=== PATIENT | female | born 1985 | race Caucasian/White ===

== ENCOUNTER 2022-10-17 13:27 | Inpatient (IN) | payer OTHER, SELFPAY ==
[2022-10-17 13:35] VITALS: BMI 29.7
[2022-10-17 13:36] VITALS: BP 160/110; PULSE 108; RESP 17; TEMP 36.8; O2SAT 98
[2022-10-17 13:55] VITALS: BP 160/110; PULSE 108; RESP 17; TEMP 36.8; O2SAT 98
--- NOTE | 2022-10-17 15:25 | PC.NURSE ---
Patient uses [facility] in [place], number is [phone]. Patient restarted on seroquel 100mg, 1 tab at bedtime; depakote DR 250mg BID, spironolactone 50mg 1 daily. Hospital doesn't carry Wellbutrin 75mg 1 daily, because the [address] Hays aware; he said to not give.
--- NOTE | 2022-10-17 15:39 | PC.NURSE ---
HEad lice treatment medication was discovered in patient's medication list from admitting hospital. patient denies having head lice. Patient allowed this nurse to check her hair and scalp for lice and nits. Nothing found.
[2022-10-17 16:28] VITALS: BP 157/98
[2022-10-17] MEDS: divalproex DR 250 mg Tablet PO (20:13)
[2022-10-17] MEDS: quetiapine 100 mg Tablet PO (20:14)
[2022-10-17 20:39] VITALS: BP 155/95; PULSE 93; RESP 18; TEMP 36.4; O2SAT 96
[2022-10-18] MEDS: OLANZapine 5 mg ODT PO ×2 (03:05→17:07)
[2022-10-18 06:00] VITALS: BP 165/106; PULSE 106; RESP 18; TEMP 36.7; O2SAT 96
[2022-10-18 06:43] VITALS: BP 165/106
[2022-10-18] MEDS: cloNIDine 0.1 mg Tablet 0.2 MG PO (06:43)
[2022-10-18] MEDS: spironolactone 25 mg Tablet 50 MG PO (08:20)
[2022-10-18] MEDS: divalproex DR 250 mg Tablet PO ×2 (08:21→20:39)
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
[2022-10-18] MEDS: nicotine 21 mg Patch 1 PATCH TRANSDERMA (11:29)
[2022-10-18] MEDS: paliperidone ER 3 mg Tablet PO (11:31)
[2022-10-18 14:00] VITALS: BP 156/106; PULSE 94; RESP 16; TEMP 37.2; O2SAT 99
[2022-10-18] MEDS: hyDROXYzine 25 mg Capsule 50 MG PO ×2 (17:07→20:39)
--- NOTE | 2022-10-18 17:10 | PC.NURSE ---
PT SIGNIFICANT OTHER CALLED TO ASK FOR AN UPDATE ON PT. SIGNIFICANT OTHER IS ON PT HIPPA FORMS. THIS NURSE GAVE UPDATE AND SIGNIFICANT OTHER STATED TO THIS NURSE THE LAST TIME SHE WAS ADMITTED SHE STARTED PEEING IN [facility]. THIS WILL BE RELAYED APPROPRIATELY.
--- NOTE | 2022-10-18 17:10 | PC.NURSE ---
PRN VISTARIL & ZYPREXA ZYDIS VISTARIL 50 MG GIVEN PO WITH ZYPREXA ZYDIS 5 MG PO SUBLINGUAL PER PT C/O INCREASED ANXIETY/PSYCHOSIS. PT URINATED IN CHAIR IN DAY ROOM, CAME UP TO THE DESK ASKING FOR SCRUBS, STAFF PROVIDED, PT PROCEEDED TO STRIP NAKED IN THE HALLWAY. STAFF HAD TO REDIRECT TO PATIENT ROOM TO CONTINUE GETTING DRESSED. PT WAS THEN STANDING STILL IN THE HALLWAY FOR SEVERAL MINUTES STARING STRAIGHT AHEAD, WITH ARMS OUT TO SIDE, RESPONDED TO STAFF WHEN ASKED IF SHE WAS OKAY BUT APPEARS TO BE MUMBLING TO HERSELF. TOOK PRN MEDS WILLINGLY. WILL CONT TO MONITOR
[2022-10-18 19:42] VITALS: PULSE 101; RESP 17; TEMP 37.1; O2SAT 96
[2022-10-18] MEDS: trazodone 50 mg Tablet PO (20:39)
[2022-10-18] MEDS: nicotine 4 mg lozenge MUCOUS MEM (23:41)
[2022-10-19 06:00] VITALS: BP 161/92; PULSE 113; RESP 16; TEMP 36.7; O2SAT 99
[2022-10-19] MEDS: paliperidone ER 3 mg Tablet PO ×2 (08:06→17:01)
[2022-10-19] MEDS: divalproex DR 250 mg Tablet PO (08:06)
[2022-10-19] MEDS: spironolactone 25 mg Tablet 50 MG PO (08:06)
[2022-10-19] MEDS: nicotine 2 mg Gum BUCCAL ×2 (08:07→20:08)
--- NOTE | 2022-10-19 09:01 | PC.NURSE ---
PT CURRENTLY DENIES SI/HI/AH/VH. PT WAS COOPERATIVE DURING ASSESSMENT BUT WOULD ONLY ANSWER QUESTIONS WITH ONE WORD ANSWERS. PT IS EVASIVE WHEN ASKED QUESTIONS. PT APPEARS FLAT AND BLAND. PT CURRENT NEEDS ARE MET. WILL CONTINUE TO MONITOR
[2022-10-19] MEDS: hyDROXYzine 25 mg Capsule 50 MG PO (12:13)
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
[2022-10-19 14:00] VITALS: BP 151/96; PULSE 104; RESP 16; TEMP 36.6; O2SAT 97
[2022-10-19] MEDS: spironolactone 25 mg Tablet PO (17:01)
[2022-10-19] MEDS: haloperidol 5 mg Tablet PO (17:21)
--- NOTE | 2022-10-19 17:33 | W.PM.NPUPNS ---
Subjective NPU Subjective: Patient is a 36-year-old white female with a history of schizophrenia admitted with active psychosis including bizarre delusions and paranoia. The patient had requested that she have her lithium discontinued despite the patient not being on lithium. She had taken her Invega 3 mg without difficulty. She had significant bizarre behavior noted as she had taken her feces and made a cross and painted it on the wall of her bathroom yesterday. She had also lost control of her urine and had wet herself and when asked how this happened she had stated that she had felt like it was necessary. She continued to report that everything was fine. She had made bizarre statements to staff and had attempted to open a door with a gustafson that did not to be appear to be physically present. Mental Status Exam MSE Comments: The patient was an overweight white female who appeared her stated age. Her hygiene was poor with disheveled appearance and odd penetrating intense eye contact. Her gait was within normal limits. There was no evidence of any abnormal involuntary motor movements tics or tremors appreciated. Her speech was slow and monotone in quality but not slurred and normal in volume and normal in productivity. Her mood was described as good.. Her affect was odd and subdued and mood incongruent. Her thought process was nonlinear with evidence of significant thought blocking appreciated. Her thought content showed clear evidence of bizarre delusional thinking with ideas of persecution and significant paranoia appreciated throughout the interview. She denied any homicidal or suicidal ideation. Her attention span appeared fair. She was responding to internal stimuli although it was denied. Her recent and remote memory appeared grossly intact. She was alert and oriented x3 today. Her insight is impaired. Her judgment is poor. Her impulse control appeared limited. Vitals/I&O/Wt Last Vital Signs Temp 98 F 10/19/22 14:00 Pulse 104 H 10/19/22 14:00 Resp 16 10/19/22 14:00 BP 151/96 10/19/22 14:00 Pulse Ox 97 10/19/22 14:00 O2 Del Method Room Air 10/19/22 14:00 A&P Assessment and plan (1) Schizophrenia: (2) PTSD (post-traumatic stress disorder): Plan ?Patient is a 36-year-old female admitted with bizarre delusions currently endorsing limited compliance with her medication regimen that appears currently unable to manage her care safely and continues to require acute inpatient hospitalization 1.? ? Engage? patient in individual ,milieu, and group therapy ? 2. ? We will attempt to gather collateral information from previous providers ? 3. ? TO-15 minute checks on the unit. ? 4.? Recommend sober living treatment at the highest level of care to which the patient is willing to commit. 5. Increase Invega to 6mg daily, d/c depakote, increase spironolactone to 75mg daily as patient remains hypertensive. Involuntary Hold Information 96 Hour Hold: 96 Hour Involuntary Admission: No Attestations NPU Medical Necessity Statement*: Inpatient hospitalization is medically necessary and deemed to be the clinically appropriate intervention at this time. We will initiate medications as deemed medically necessary and adjust them accordingly. The patient's likely length of stay is 5 to 7 days. Coding Level of Care Code Acute Code for [facility] Diagnoses Schizophrenia F20.9 PTSD (post-traumatic stress disorder) F43.10
[2022-10-19] MEDS: OLANZapine 5 mg ODT PO (17:55)
--- NOTE | 2022-10-19 21:22 | PC.NURSE ---
Pt called this nurse to the phone area, stating that the doctor was on the phone. This nurse answered the phone and it was a xerox machine operator stating that the pt called to say she needed d/c'd. Told the greenstone polisher operator that the pt was safe and thank her for her patience. Will con't to monitor.
[2022-10-19 22:00] VITALS: BP 130/87; PULSE 105; RESP 16; TEMP 36.7; O2SAT 96
[2022-10-20 06:00] VITALS: BP 158/105; PULSE 100; RESP 16; TEMP 36.8; O2SAT 98
[2022-10-20] MEDS: paliperidone ER 3 mg Tablet 6 MG PO (08:23)
[2022-10-20] MEDS: spironolactone 25 mg Tablet 75 MG PO (08:23)
[2022-10-20] MEDS: nicotine 2 mg Gum BUCCAL (08:27)
--- NOTE | 2022-10-20 09:13 | PC.NURSE ---
PT CURRENTLY DENIES SI/HI/AH/VH, HOWEVER PT DOES APPEAR TO BE INTERNALLY OCCUPIED. PT IS COOPERATIVE WITH ASSESSMENT BUT EVASIVE WHEN ANSWERING QUESTIONS. PT WOULD ONLY ANSWER QUESTIONS WITH ONE WORD ANSWERS. PT CURRENT NEEDS ARE MET. WILL CONTINUE TO MONITOR.
[2022-10-20 14:00] VITALS: BP 135/92; PULSE 130; RESP 17; TEMP 36.6; O2SAT 97
--- NOTE | 2022-10-20 18:51 | P.NPUPN_ITS ---
Subjective NPU Subjective: Patient is a 36-year-old white female with a history of schizophrenia admitted with active psychosis including bizarre delusions and paranoia. The patient had stated that she felt ready to return home. Despite this she continued to engage in bizarre behavior with attempts to unlock doors with imaginary keys. She had continued to report that she was planning on being more zoroastrian when she gets home. She had continued to report that she had been reincarnated and had acknowledged having stripped down and become naked next to the body that she had previously occupied. Patient had tolerated her Invega without difficulty. She continued to make unusual statements to staff and did not appear to engage in any unusual behavior with no evidence of fecal smearing reported. Mental Status Exam MSE Comments: The patient was an overweight white female who appeared her stated age. Her hygiene was poor with disheveled appearance and odd penetrating intense eye contact. Her gait was within normal limits. There was no evidence of any abnormal involuntary motor movements tics or tremors appreciated. Her speech was slow and monotone in quality but not slurred and normal in volume and normal in productivity. Her mood was described as good. Her affect was odd and subdued and mood incongruent. Her thought process was nonlinear with evidence of significant thought blocking appreciated. Her thought content showed clear evidence of bizarre delusional thinking with ideas of persecution and significant paranoia appreciated throughout the interview. She denied any homicidal or suicidal ideation. Her attention span appeared fair. She was responding to internal stimuli although it was denied. Her recent and remote memory appeared grossly intact. She was alert and oriented x3 today. Her insight is feeble. Her judgment is poor. Her impulse control appeared limited. Vitals/I&O/Wt Last Vital Signs Temp 97.9 F 10/20/22 14:00 Pulse 130 H 10/20/22 14:00 Resp 17 10/20/22 14:00 BP 135/92 10/20/22 14:00 Pulse Ox 97 10/20/22 14:00 O2 Del Method Room Air 10/20/22 06:00 A&P Assessment and plan (1) Schizophrenia: (2) PTSD (post-traumatic stress disorder): Plan ?Patient is a 36-year-old female admitted with bizarre delusions currently endorsing limited compliance with her medication regimen that appears currently unable to manage her care safely and continues to require acute inpatient hospitalization 1.? ?Engage? patient in individual ,milieu, and group therapy ? 2. ? We will attempt to gather collateral information from previous providers ? 3. ? TO-15 minute checks on the unit. ? 4.? Recommend sober living treatment at the highest level of care to which the patient is willing to commit. 5. Continue Invega 6mg daily, continue spironolactone at 75mg daily. Patient likely to be placed on IM invega in 1-2 days. Involuntary Hold Information 96 Hour Hold: 96 Hour Involuntary Admission: No Attestations NPU Medical Necessity Statement*: Inpatient hospitalization is medically necessary and deemed to be the clinically appropriate intervention at this time. We will initiate medications as deemed medically necessary and adjust them accordingly. The patient's likely length of stay is 5 to 7 days. Coding Level of Care Code Acute Code for [facility] Diagnoses Schizophrenia F20.9 PTSD (post-traumatic stress disorder) F43.10
[2022-10-20 22:00] VITALS: BP 129/80; PULSE 98; RESP 18; TEMP 36.8; O2SAT 97
[2022-10-21 06:00] VITALS: PULSE 16
--- NOTE | 2022-10-21 06:39 | PC.NURSE ---
After several attempts at waking patient up to do vitals, staff was unable to obtain vitals due to patient heavily sleeping. Respiratory Rates were obtained.
[2022-10-21] MEDS: LORazepam 2 mg/mL INJ 1 mL IM (08:14)
[2022-10-21] MEDS: haloperidol inj 5 mg/mL INJ 1 mL IM (08:15)
[2022-10-21] MEDS: diphenhydrAMINE 50 mg/mL SDV 1mL IM (08:15)
[2022-10-21] MEDS: spironolactone 25 mg Tablet 75 MG PO (09:10)
[2022-10-21] MEDS: nicotine 2 mg Gum BUCCAL (09:10)
[2022-10-21] MEDS: paliperidone ER 3 mg Tablet 6 MG PO (09:11)
--- NOTE | 2022-10-21 09:47 | PC.NURSE ---
Patient became very angry this morning because we were unable to let patients go out to the patio because the lock is broke. Patient did not believe staff and became verbally aggressive. Multiple members of staff attempted to verbally de-escalate patient, but were unsuccessful. Patient given diphenhydramine 50mg IM in right deltoid and ativan 2mg with haldol 5mg IM in the left deltoid. Patient tolerated medication well and is currently resting in her room.
[2022-10-21 14:00] VITALS: BP 116/76; PULSE 117; RESP 16; TEMP 36.6; O2SAT 98
--- NOTE | 2022-10-21 17:00 | P.NPUPN_ITS ---
Subjective NPU Subjective: Patient is a 36-year-old white female with a history of schizophrenia admitted with active psychosis including bizarre delusions and paranoia. She had continue to endorse that she wished to go home. She had been minimally interactive on the unit. She had continued to express bizarre cheondoism believes and stated that she was in purgatory. She had required as needed medications as she had attempted to flee the unit with repeated attempts to open the doors. She had become verbally aggressive after being told that she would not be able to go into the patio room. She had reported that she felt persecuted by everyone. She had reported that her reincarnation was a private matter. Mental Status Exam MSE Comments: The patient was an overweight white female who appeared her stated age. Her hygiene was improving with intense eye contact. Her gait was within normal limits. There was no evidence of any abnormal involuntary motor movements tics or tremors appreciated. Her speech was slow and monotone in quality but not slurred and normal in volume and normal in productivity. Her mood was described as good. Her affect was odd and subdued and mood incongruent. Her thought process was nonlinear with evidence of significant thought blocking appreciated. Her thought content showed clear evidence of bizarre delusional thinking with ideas of persecution and significant paranoia appreciated throughout the interview. She denied any homicidal or suicidal ideation. Her attention span appeared fair. She was responding to internal stimuli although it was denied. Her recent and remote memory appeared grossly intact. She was alert and oriented x3 today. Her insight is feeble. Her judgment is poor. Her impulse control appeared limited. Vitals/I&O/Wt Last Vital Signs Temp 98 F 10/21/22 14:00 Pulse 117 H 10/21/22 14:00 Resp 16 10/21/22 14:00 BP 116/76 10/21/22 14:00 Pulse Ox 98 10/21/22 14:00 O2 Del Method Room Air 10/20/22 22:00 A&P Assessment and plan (1) Schizophrenia: (2) PTSD (post-traumatic stress disorder): Plan ?Patient is a 36-year-old female admitted with bizarre delusions currently endorsing limited compliance with her medication regimen that appears currently unable to manage her care safely and continues to require acute inpatient hospitalization 1.? ?Engage? patient in individual ,milieu, and group therapy ? 2. ? We will attempt to gather collateral information from previous providers ? 3. ? TO-15 minute checks on the unit. ? 4.? Recommend sober living treatment at the highest level of care to which the patient is willing to commit. 5. Continue Invega 6mg daily, continue spironolactone at 75mg daily. Patient likely to be placed on IM invega in 1-2 days. Prn haldol for agitation. Involuntary Hold Information 96 Hour Hold: 96 Hour Involuntary Admission: No Attestations NPU Medical Necessity Statement*: Inpatient hospitalization is medically necessary and deemed to be the clinically appropriate intervention at this time. We will initiate medications as deemed medically necessary and adjust them accordingly. The patient's likely length of stay is 5 to 7 days. Coding Level of Care Code Acute Code for g Fwd Diagnoses Schizophrenia F20.9 PTSD (post-traumatic stress disorder) F43.10
[2022-10-21 20:28] VITALS: BP 116/83; PULSE 95; RESP 16; TEMP 36.5; O2SAT 96
[2022-10-22 06:00] VITALS: BP 118/82; PULSE 115; RESP 17; TEMP 36.8; O2SAT 97
[2022-10-22] MEDS: hyDROXYzine 25 mg Capsule 50 MG PO (07:46)
[2022-10-22] MEDS: spironolactone 25 mg Tablet 75 MG PO (07:46)
[2022-10-22] MEDS: nicotine 21 mg Patch 1 PATCH TRANSDERMA (07:47)
[2022-10-22] MEDS: paliperidone ER 3 mg Tablet 6 MG PO (07:47)
[2022-10-22 14:00] VITALS: BP 125/79; PULSE 113; RESP 16; TEMP 36.7; O2SAT 99
--- NOTE | 2022-10-22 15:15 | W.PM.NPUPNS ---
Subjective NPU Subjective: Patient is a 36-year-old white female with a history of schizophrenia admitted with active psychosis including bizarre delusions and paranoia. Patient had no side effects associated with her Invega. She had expressed having taken this medication before. She had attempted to leave the unit but was redirected back yesterday. She had reported improved sleep. She continued to be unwilling to discuss the events that had led to her hospitalization and stated that she believed that this was related to God and purgatory. She had reported that others around her would be facing a trial decided by God. She continued to isolate herself. Patient reported adequate appetite. She had been able to manage to complete some ADLs with prompting from staff. She reported no PTSD symptoms despite reporting a diagnosis of PTSD. Mental Status Exam MSE Comments: The patient was an overweight white female who appeared her stated age. She was pleasant and cooperative on interview. Her hygiene was improving with intense eye contact. Her gait was within normal limits. There was no evidence of any abnormal involuntary motor movements tics or tremors appreciated. Her speech was slow and monotone in quality And diminished in volume. Her mood was described as Better. Her affect was odd and subdued and mood incongruent. Her thought process was nonlinear with evidence of significant thought blocking appreciated. Her thought content showed clear evidence of bizarre delusional thinking with ideas of persecution and significant paranoia appreciated throughout the interview. She denied any homicidal or suicidal ideation. Her attention span appeared fair. She was responding to internal stimuli although it was denied. Her recent and remote memory appeared grossly intact. She was alert and oriented x3 today. Her insight is feeble. Her judgment is poor. Her impulse control appeared limited. Vitals/I&O/Wt Last Vital Signs Temp 98.1 F 10/22/22 14:00 Pulse 113 H 10/22/22 14:00 Resp 16 10/22/22 14:00 BP 125/79 10/22/22 14:00 Pulse Ox 99 10/22/22 14:00 O2 Del Method Room Air 10/22/22 14:00 A&P Assessment and plan (1) Schizophrenia: (2) PTSD (post-traumatic stress disorder): Plan ?Patient is a 36-year-old female admitted with bizarre delusions currently endorsing limited compliance with her medication regimen that appears currently unable to manage her care safely and continues to require acute inpatient hospitalization 1.? ?Engage? patient in individual ,milieu, and group therapy ? 2. ? We will attempt to gather collateral information from previous providers ? 3. ? TO-15 minute checks on the unit. ? 4.? Recommend sober living treatment at the highest level of care to which the patient is willing to commit. 5. Continue Invega 6mg daily, continue spironolactone at 75mg daily. Patient likely to be placed on IM invega in 1-2 days. Prn haldol for agitation. Involuntary Hold Information 96 Hour Hold: 96 Hour Involuntary Admission: No Attestations NPU Medical Necessity Statement*: Inpatient hospitalization is medically necessary and deemed to be the clinically appropriate intervention at this time. We will initiate medications as deemed medically necessary and adjust them accordingly. The patient's likely length of stay is 5 to 7 days. Coding Level of Care Code Acute Code for g Fwd Diagnoses Schizophrenia F20.9 PTSD (post-traumatic stress disorder) F43.10
[2022-10-22] MEDS: nicotine 2 mg Gum BUCCAL (15:18)
[2022-10-22] MEDS: nicotine 4 mg lozenge MUCOUS MEM (21:33)
[2022-10-22 22:00] VITALS: BP 118/86; PULSE 117; RESP 18; TEMP 36.7; O2SAT 98
[2022-10-23 06:00] VITALS: BP 122/87; PULSE 104; RESP 16; TEMP 36.8; O2SAT 98
[2022-10-23] MEDS: paliperidone ER 3 mg Tablet 6 MG PO (07:49)
[2022-10-23] MEDS: nicotine 4 mg lozenge MUCOUS MEM ×2 (07:49→09:51)
[2022-10-23] MEDS: spironolactone 25 mg Tablet 75 MG PO (07:49)
[2022-10-23] MEDS: OLANZapine 5 mg ODT PO (09:53)
[2022-10-23] MEDS: hyDROXYzine 25 mg Capsule 50 MG PO (12:19)
[2022-10-23] MEDS: haloperidol 5 mg Tablet PO (12:19)
[2022-10-23 14:00] VITALS: BP 132/85; PULSE 134; RESP 17; TEMP 36.4; O2SAT 100
--- NOTE | 2022-10-23 14:25 | PC.NURSE ---
Pt currently wearing a pair of mesh panties on her head, pt was asked to remove the head covering by [employer] on the galeana. Pt refused to remove from head. Nurse talked with pt about removing mesh panties, Pt then made a spraying noise and acted like she was spraying something imaginary on the nurse.
--- NOTE | 2022-10-23 16:15 | P.NPUPN_ITS ---
Subjective NPU Subjective: Patient is a 36-year-old white female with a history of schizophrenia admitted with active psychosis including bizarre delusions and paranoia. She reported that her thoughts were being broadcast to others and stated that she had power to insert her thoughts into others. She had been standing on a table yesterday while making statements about [place]. She reports that Satan had control of her mind. Patient reports no suicidal thoughts. Patient was bizarre on the unit as she had taken her paper underwear and tied it around her head saying that it was for protection. Mental Status Exam MSE Comments: The patient was an overweight white female who appeared her stated age. She was pleasant and cooperative on interview. Her hygiene was improving with intense eye contact. Her gait was within normal limits. There was no evidence of any abnormal involuntary motor movements tics or tremors appreciated. Her speech was slow and monotone in quality with diminished in volume. Her mood was described as good, i am ready to go home. Her affect was odd and subdued and mood incongruent. Her thought process was nonlinear with evidence of significant thought blocking appreciated. Her thought content showed clear evidence of bizarre delusional thinking with ideas of persecution and temple delusions regarding demonic possession. She denied any homicidal or suicidal ideation. Her attention span appeared fair. She was responding to internal stimuli although it was denied. Her recent and remote memory appeared grossly intact. She was alert and oriented x3 today. Her insight is feeble. Her judgment is poor. Her impulse control appeared limited. Vitals/I&O/Wt Last Vital Signs Temp 98.3 F 10/23/22 06:00 Pulse 104 H 10/23/22 06:00 Resp 16 10/23/22 06:00 BP 122/87 10/23/22 06:00 Pulse Ox 98 10/23/22 06:00 O2 Del Method Room Air 10/22/22 14:00 A&P Assessment and plan (1) Schizophrenia: (2) PTSD (post-traumatic stress disorder): Plan ?Patient is a 36-year-old female admitted with bizarre delusions currently endorsing limited compliance with her medication regimen that appears currently unable to manage her care safely and continues to require acute inpatient hospitalization 1.? ?Engage? patient in individual ,milieu, and group therapy ? 2. ? We will attempt to gather collateral information from previous providers ? 3. ? TO-15 minute checks on the unit. ? 4.? Recommend sober living treatment at the highest level of care to which the patient is willing to commit. 5. Increase Invega 9mg daily, continue spironolactone at 75mg daily. Patie nt likely to be placed on IM invega 234 mg tommorow. . Prn haldol for agitation. Involuntary Hold Information 96 Hour Hold: 96 Hour Involuntary Admission: No Attestations NPU Medical Necessity Statement*: Inpatient hospitalization is medically necessary and deemed to be the clinically appropriate intervention at this time. We will initiate medications as deemed medically necessary and adjust them accordingly. The patient's likely length of stay is 5 to 7 days. Coding Level of Care Code Acute Code for [facility] Fwd Diagnoses Schizophrenia F20.9 PTSD (post-traumatic stress disorder) F43.10
--- NOTE | 2022-10-23 17:14 | NPU.GN ---
[facility] Group Topic:painting General Mood of Group patient came to group with mesh panties on her head. She was asked to take them off if she wanted to participate. At first walked off then returned and agreed to take them off her head. She worked on two paintings. She spoke when spoken to and was very focused on her painting. She states she does art at home and enjoys doing this.
[2022-10-23 20:39] VITALS: BP 132/90; PULSE 111; RESP 16; TEMP 36.9; O2SAT 96
--- NOTE | 2022-10-24 04:39 | PC.NURSE ---
Patient mostly isolated to her room this shift. Variance during shift assessment positive for orientation to self only. Patient appeared to be responding to internal stimuli as evidenced by her talking to the door and carrying on a conversation with herself. Patient was slow to respond to assessment questions. Patient denied SI/HI/AVH and would not rate anxiety and depression for this RN.
[2022-10-24 06:00] VITALS: BP 123/85; PULSE 106; RESP 16; TEMP 36.9; O2SAT 98
[2022-10-24] MEDS: spironolactone 25 mg Tablet 75 MG PO (08:55)
[2022-10-24] MEDS: paliperidone ER 3 mg Tablet 9 MG PO (08:56)
[2022-10-24] MEDS: paliperidone palmitate 234 mg Syringe IM (09:02)
--- NOTE | 2022-10-24 09:08 | PC.NURSE ---
Invega Sustenna 234mg/1.5mL Invega Sustenna administered to patient's left deltoid muscle. No adverse reactions. Tolerated well by patient. lot: [id number] Exp: 02/08
--- NOTE | 2022-10-24 11:31 | NPU.GN ---
[facility] Group Topic:Motivation General Mood of Group patient participated in group, writing down positive affirmations that meant something to her. Patient did remove the mesh panties from her head without being asked before coming into group. Patient smiled when complemented on her artwork from yesterday.
[2022-10-24] MEDS: nicotine 4 mg lozenge MUCOUS MEM (12:03)
[2022-10-24 13:36] VITALS: BP 143/93; PULSE 115; RESP 17; TEMP 36.6; O2SAT 99
--- NOTE | 2022-10-24 14:59 | P.NPUPN_ITS ---
Subjective NPU Subjective: Patient is a 36-year-old white female with a history of schizophrenia admitted with active psychosis including bizarre delusions and paranoia. She continued to report that she was ready to go home and that her was wanting her to go home. Despite this, she had continue to report that she felt as if she could read others' minds and that she could transmit her thoughts into another person and somehow influence them. The patient had into to mated that the paper underwear that she had tied around her hair was somehow being used to prevent the release of this information to others. She continued to attend basic groups but did not appear to offer much input. She had remained isolative on the milieu. She had attempted to make efforts to flee the unit again. She had remained agreeable to staying here to take her medications and she was given Invega IM today. Mental Status Exam MSE Comments: The patient was an overweight white female who appeared her stated age. She was pleasant and cooperative on interview. Her hygiene was improving with intense eye contact. Her gait was within normal limits. There was no evidence of any abnormal involuntary motor movements tics or tremors appreciated. Her speech was slow and monotone in quality with diminished in volume And a lack of spontaneity in speech. Her mood was described as good. Her affect was odd and subdued,mood incongruent. Her thought process was nonlinear with evidence of significant thought blocking appreciated. Her thought content showed clear evidence of bizarre delusional thinking with ideas of persecution and orthodoxy delusions regarding demonic possession. She denied any homicidal or suicidal ideation. Her attention span appeared fair. She was responding to internal stimuli although it was denied. Her recent and remote memory appeared grossly intact. She was alert and oriented x3 today. Her insight is feeble. Her judgment is poor. Her impulse control appeared limited. Vitals/I&O/Wt Last Vital Signs Temp 97.9 F 10/24/22 13:36 Pulse 115 H 10/24/22 13:36 Resp 17 10/24/22 13:36 BP 143/93 10/24/22 13:36 Pulse Ox 99 10/24/22 13:36 O2 Del Method Room Air 10/22/22 14:00 Weight last 48 hrs Weight 86.364 kg A&P Assessment and plan (1) Schizophrenia: (2) PTSD (post-traumatic stress disorder): Plan ?Patient is a 36-year-old female admitted with bizarre delusions currently endorsing limited compliance with her medication regimen that appears currently unable to manage her care safely and continues to require acute inpatient hospitalization 1.? ?Engage? patient in individual ,milieu, and group therapy ? 2. ? We will attempt to gather collateral information from previous providers ? 3. ? TO-15 minute checks on the unit. ? 4.? Recommend sober living treatment at the highest level of care to which the patient is willing to commit. 5. Increase Invega 9mg daily, continue spironolactone at 75mg daily. Patient given IM invega 234mg today. . Prn haldol for agitation. Involuntary Hold Information 96 Hour Hold: 96 Hour Involuntary Admission: No Attestations NPU Medical Necessity Statement*: Inpatient hospitalization is medically necessary and deemed to be the clinically appropriate intervention at this time. We will initiate medications as deemed medically necessary and adjust them accordingly. The patient's likely length of stay is 5 to 7 days. Coding Level of Care Code Acute Code for [facility] Fw Diagnoses Schizophrenia F20.9 PTSD (post-traumatic stress disorder) F43.10
--- NOTE | 2022-10-24 18:00 | PC.NURSE ---
At approximately 1720, [facility] window, with her scrub top and bra off. Patient stated that she wanting to leave with her , who has the keys. Patient also said that the mesh underwear she wears on her head is her crown . With a little bit of persuasion, patient put her scrub top back on. Patient was calm and cooperative.
[2022-10-24 20:02] VITALS: BP 139/97; PULSE 126; RESP 18; TEMP 36.4; O2SAT 98
[2022-10-25 06:00] VITALS: BP 144/84; PULSE 127; RESP 16; O2SAT 98
[2022-10-25] MEDS: paliperidone ER 3 mg Tablet 9 MG PO (08:43)
[2022-10-25] MEDS: spironolactone 25 mg Tablet 75 MG PO (08:43)
[2022-10-25] MEDS: hyDROXYzine 25 mg Capsule 50 MG PO (12:33)
--- NOTE | 2022-10-25 12:33 | PC.NURSE ---
Patient anxious and trembling. Patient is wanting to leave the unit. Patient is also wanting to go outside but the door is broken so we are unable to take patients outside. Patient returned to her room. Patient trembling in her bed. This nurse attempted to talk to patient, but patient did not respond. This nurse administered 50mg Visteril PO to patient. Will continue to monitor closely.
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
[2022-10-25 14:00] VITALS: BP 128/91; PULSE 115; RESP 16; TEMP 36.6; O2SAT 98
--- NOTE | 2022-10-25 15:34 | W.PM.NPUPNS ---
Subjective NPU Subjective: Patient is a 36-year-old white female with a history of schizophrenia admitted with active psychosis including bizarre delusions and paranoia. The patient had continued to be minimally communicative on the unit. She had superficially attended groups with minimal involvement. She had worn her paper underwear around her head and stated that this was her crown. She had continued to engage in unusual behavior as she had no shirt on and required significant redirection. She had continued to report that she was in a rodriguez with Hell and stated that she continued to remain in purgatory. Despite this, she reported that she was ready to return home. She reported no side effects from her medications. Mental Status Exam MSE Comments: The patient was an overweight white female who appeared her stated age wearing her paper underwear on her head. She was pleasant and minimally cooperative on interview. Her hygiene was improving with intense eye contact. Her gait was within normal limits. There was no evidence of any abnormal involuntary motor movements tics or tremors appreciated other than an occasional vocal outburst noted. Her speech was slow and monotone in quality with diminished in volume. There was a general lack of spontaneity in her speech. Her mood was described as good. Her affect was odd and subdued,mood incongruent. Her thought process was nonlinear with evidence of significant thought blocking appreciated. Her thought content showed clear evidence of bizarre delusional thinking with ideas of persecution and mandaen delusions regarding demonic possession. She denied any homicidal or suicidal ideation. Her attention span appeared fair. She was responding to internal stimuli although it was denied. Her recent and remote memory appeared grossly intact. She was alert and oriented x3 today. Her insight is feeble. Her judgment is poor. Her impulse control appeared limited. Vitals/I&O/Wt Last Vital Signs Temp 98 F 10/25/22 14:00 Pulse 115 H 10/25/22 14:00 Resp 16 10/25/22 14:00 BP 128/91 10/25/22 14:00 Pulse Ox 98 10/25/22 14:00 O2 Del Method Room Air 10/25/22 14:00 Weight last 48 hrs Weight 86.364 kg A&P Assessment and plan (1) Schizophrenia: (2) PTSD (post-traumatic stress disorder): Plan ?Patient is a 36-year-old female admitted with bizarre delusions currently endorsing limited compliance with her medication regimen that appears currently unable to manage her care safely and continues to require acute inpatient hospitalization 1.? ?Engage? patient in individual ,milieu, and group therapy ? 2. ? We will attempt to gather collateral information from previous providers ? 3. ? TO-15 minute checks on the unit. ? 4.? Recommend sober living treatment at the highest level of care to which the patient is willing to commit. 5. Continue Invega 9mg daily, continue spironolactone at 75mg daily. Patient given IM invega 234mg on 10/24/2022. Prn haldol for agitation. Cogentin 1mg bid. Involuntary Hold Information 96 Hour Hold: 96 Hour Involuntary Admission: No Attestations NPU Medical Necessity Statement*: Inpatient hospitalization is medically necessary and deemed to be the clinically appropriate intervention at this time. We will initiate medications as deemed medically necessary and adjust them accordingly. The patient's likely length of stay is 5 to 7 days. Coding Level of Care Code Acute Code for [facility] Fw Diagnoses Schizophrenia F20.9 PTSD (post-traumatic stress disorder) F43.10
[2022-10-25] MEDS: nicotine 4 mg lozenge MUCOUS MEM ×2 (16:08→19:56)
[2022-10-25] MEDS: benztropine 1 mg Tablet PO (17:45)
[2022-10-25 19:45] VITALS: BP 129/90; PULSE 116; RESP 18; TEMP 36.3; O2SAT 97
[2022-10-26 06:00] VITALS: BP 126/79; PULSE 114; RESP 18; TEMP 36.4; O2SAT 97
[2022-10-26] MEDS: spironolactone 25 mg Tablet 75 MG PO (08:42)
[2022-10-26] MEDS: paliperidone ER 3 mg Tablet 9 MG PO (08:42)
[2022-10-26] MEDS: benztropine 1 mg Tablet PO ×2 (08:42→17:34)
[2022-10-26 14:00] VITALS: BP 135/91; PULSE 126; RESP 16; TEMP 36.6; O2SAT 97
--- NOTE | 2022-10-26 16:47 | W.PM.NPUPNS ---
Subjective NPU Subjective: Patient is a 36-year-old white female with a history of schizophrenia admitted with active psychosis including bizarre delusions and paranoia. She continued to engage in bizarre behavior. She had t stared blankly at the television and put the volume up loud as she appeared to be trying to block out noise. She had minimized hearing voices but clearly appeared to be engaging in bizarre behavior. She had been seen moving her hands in the air towards the door and denied having engaged in this behavior earlier. She had been able to remove the paper underwear from her head. She had continued to report that she was involved in making decisions of a zoroastrianism nature but would not elaborate. Mental Status Exam MSE Comments: The patient was an overweight white female who appeared her stated age who had been seen engaged in bizarre gestures on the unit initially. She was pleasant and minimally engaged during the interview. Her hygiene was improving with intense eye contact. Her gait was within normal limits. There was no evidence of any abnormal involuntary motor movements, tics, or tremors appreciated other than an occasional vocal outburst noted. Her speech was slow and monotone in quality with diminished in volume. There was a general lack of spontaneity in her speech. Her mood was described as good. Her affect was blunted and mood incongruent. Her thought process was nonlinear with evidence of significant thought blocking appreciated. Her thought content showed clear evidence of bizarre delusional thinking with ideas of persecution and zoroastrianism delusions regarding demonic possession. She denied any homicidal or suicidal ideation. Her attention span appeared impaired. She was responding to internal stimuli although it was denied By patient. Her recent and remote memory appeared grossly intact. She was alert and oriented x3 today. Her insight is feeble. Her judgment is poor. Her impulse control appeared limited. Vitals/I&O/Wt Last Vital Signs Temp 98 F 10/26/22 14:00 Pulse 126 H 10/26/22 14:00 Resp 16 10/26/22 14:00 BP 135/91 10/26/22 14:00 Pulse Ox 97 10/26/22 14:00 O2 Del Method Room Air 10/26/22 14:00 A&P Assessment and plan (1) Schizophrenia: (2) PTSD (post-traumatic stress disorder): Plan ?Patient is a 36-year-old female admitted with bizarre delusions currently endorsing limited compliance with her medication regimen that appears currently unable to manage her care safely and continues to require acute inpatient hospitalization 1.? ?Engage? patient in individual ,milieu, and group therapy ? 2. ? We will attempt to gather collateral information from previous providers ? 3. ? TO-15 minute checks on the unit. ? 4.? Recommend sober living treatment at the highest level of care to which the patient is willing to commit. 5. Continue Invega 9mg daily, continue spironolactone at 75mg daily. Patient given IM invega 234mg on 10/24/2022. Prn haldol for agitation. Cogentin 1mg bid. Involuntary Hold Information 96 Hour Hold: 96 Hour Involuntary Admission: No Attestations NPU Medical Necessity Statement*: Inpatient hospitalization is medically necessary and deemed to be the clinically appropriate intervention at this time. We will initiate medications as deemed medically necessary and adjust them accordingly. The patient's likely length of stay is 5 to 7 days. Coding Level of Care Code Acute Code for [facility] Fwd Diagnoses Schizophrenia F20.9 PTSD (post-traumatic stress disorder) F43.10
[2022-10-26 19:21] VITALS: BP 153/88; PULSE 115; RESP 18; TEMP 36.4; O2SAT 98
[2022-10-27 06:00] VITALS: BP 148/93; PULSE 117; RESP 18; TEMP 36.4; O2SAT 98
[2022-10-27] MEDS: benztropine 1 mg Tablet PO ×2 (08:22→20:13)
[2022-10-27] MEDS: spironolactone 25 mg Tablet 75 MG PO (08:22)
[2022-10-27] MEDS: paliperidone ER 3 mg Tablet 9 MG PO (08:22)
[2022-10-27 13:25] VITALS: BP 134/90; PULSE 107; RESP 16; O2SAT 98
--- NOTE | 2022-10-27 15:21 | P.NPUPN_ITS ---
Subjective NPU Subjective: Patient is a 36-year-old white female with a history of schizophrenia admitted with active psychosis including bizarre delusions and paranoia. She continued to engage in bizarre behavior. She had reported that she was hearing voices and reported that she was still in purgatory. She reports that she was reincarnated from the person whose gravestones she was hugging while naked. She had reported difficulties with falling asleep last night despite addition of trazodone. Mental Status Exam MSE Comments: The patient was an overweight white female who appeared her stated age who had been seen engaged in bizarre gestures on the unit initially. She was pleasant and minimally engaged during the interview. Her hygiene was improving with intense eye contact. Her gait was within normal limits. There was no evidence of any abnormal involuntary motor movements, tics, or tremors appreciated other than an occasional vocal outburst noted. Her speech was slow and monotone in quality with diminished in volume. There was a general lack of spontaneity in her speech. Her mood was described as good. Her affect was blunted and mood incongruent. Her thought process was nonlinear with evidence of significant thought blocking appreciated. Her thought content showed clear evidence of bizarre delusional thinking with protestant delusions noted. She denied any homicidal or suicidal ideation. Her attention span appeared impaired. She was responding to internal stimuli. Her recent and remote memory appeared grossly intact. She was alert and oriented x3 today. Her insight is feeble. Her judgment is poor. Her impulse control appeared limited. Vitals/I&O/Wt Last Vital Signs Temp 97.6 F 10/27/22 06:00 Pulse 107 H 10/27/22 13:25 Resp 16 10/27/22 13:25 BP 134/90 10/27/22 13:25 Pulse Ox 98 10/27/22 13:25 O2 Del Method Room Air 10/27/22 13:25 A&P Assessment and plan (1) Schizophrenia: (2) PTSD (post-traumatic stress disorder): Plan ?Patient is a 36-year-old female admitted with bizarre delusions currently endorsing limited compliance with her medication regimen that appears currently unable to manage her care safely and continues to require acute inpatient hos pitalization 1.? ?Engage? patient in individual ,milieu, and group therapy ? 2. ? We will attempt to gather collateral information from previous providers ? 3. ? TO-15 minute checks on the unit. ? 4.? Recommend sober living treatment at the highest level of care to which the patient is willing to commit. 5. Continue Invega 9mg daily, continue spironolactone at 75mg daily. Patient given IM invega 234mg on 10/24/2022. Prn haldol for agitation. Continue Cogentin 1mg bid. Involuntary Hold Information 96 Hour Hold: 96 Hour Involuntary Admission: No Attestations NPU Medical Necessity Statement*: Inpatient hospitalization is medically necessary and deemed to be the clinically appropriate intervention at this time. We will initiate medications as deemed medically necessary and adjust them accordingly. The patient's likely length of stay is 5 to 7 days. Coding Level of Care Code Acute Code for g Fwd Diagnoses Schizophrenia F20.9 PTSD (post-traumatic stress disorder) F43.10
[2022-10-27 21:07] VITALS: BP 120/86; PULSE 101; RESP 16; O2SAT 98
[2022-10-27] MEDS: nicotine 4 mg lozenge MUCOUS MEM (21:46)
[2022-10-28 06:00] VITALS: BP 133/75; PULSE 127; RESP 16; TEMP 36.8; O2SAT 98
[2022-10-28] MEDS: spironolactone 25 mg Tablet 75 MG PO (09:54)
[2022-10-28] MEDS: paliperidone ER 3 mg Tablet 9 MG PO (09:55)
[2022-10-28] MEDS: benztropine 1 mg Tablet PO ×2 (09:55→20:34)
[2022-10-28] MEDS: nicotine 4 mg lozenge MUCOUS MEM ×2 (09:55→13:40)
[2022-10-28 14:00] VITALS: BP 138/91; PULSE 118; RESP 18; TEMP 37.1; O2SAT 98
--- NOTE | 2022-10-28 18:05 | W.PM.NPUPNS ---
Subjective NPU Subjective: Patient presented today reporting that she was doing fine. On couple occasions when I walked by her room she was sitting in her bed with underwear over her head. She reports that this is her crown and seemed to feel she had special masters that allowed her underwear to be transformed into a crown on her head. She reports that she has special masters that increased since the of a family member about 4 years ago. She reports however that she always had these masters and that she has ability to control people and influence situations. Mental Status Exam MSE Comments: This is an overweight versus obese white female in hospital scrubs with adequate grooming and limited eye contact. No abnormal movements except for psychomotor retardation. Cooperative with exam in mild distress. Speech was limited with some pauses and decreased rate and volume with limited prosody. Mood described as a little depressed, affect odd. Thought process organized. Thought content: Patient denied suicidal or homicidal ideation, there were no delusions reported but clear paranoid and bizarre and possibly hyperreligious delusions noted, she endorsed auditory hallucinations and seem to suggest this hallucinations at times. Attention and concentration were limited and memory was unreliable but never formally tested. Alert and oriented times person and place. Insight, judgment and impulse control are impaired. Vitals/I&O/Wt Last Vital Signs Temp 98.4 F 10/28/22 21:50 Pulse 118 H 10/28/22 21:50 Resp 18 10/28/22 21:50 BP 138/92 10/28/22 21:50 Pulse Ox 98 10/28/22 21:50 O2 Del Method Room Air 10/28/22 21:50 A&P Assessment and plan (1) Schizophrenia: (2) PTSD (post-traumatic stress disorder): Plan ?Patient is a 36-year-old female admitted with bizarre delusions currently endorsing limited compliance with her medication regimen that appears currently unable to manage her care safely and continues to require acute inpatient hospitalization 1.? ?Engage? patient in individual ,milieu, and group therapy ? 2. ? We will attempt to gather collateral information from previous providers ? 3. ? TO-15 minute checks on the unit. ? 4.? Recommend sober living treatment at the highest level of care to which the patient is willing to commit. 5. Continue Invega 9mg daily, continue spironolactone at 75mg daily. Patient given IM invega 234mg on 10/24/2022. Prn haldol for agitation. Continue Cogentin 1mg bid. 6. Need to consider second antipsychotic given the intense and fixed nature of her continuum delusions. Involuntary Hold Information 96 Hour Hold: 96 Hour Involuntary Admission: No Attestations NPU Medical Necessity Statement*: Inpatient hospitalization is medically necessary and deemed to be the clinically appropriate intervention at this time. We will initiate medications as deemed medically necessary and adjust them accordingly. The patient's likely length of stay is 7-10 days. Coding Level of Care Code Acute Code for g Fwd Diagnoses Schizophrenia F20.9 PTSD (post-traumatic stress disorder) F43.10
[2022-10-28 21:50] VITALS: BP 138/92; PULSE 118; RESP 18; TEMP 36.9; O2SAT 98
[2022-10-29] MEDS: nicotine 4 mg lozenge MUCOUS MEM ×3 (03:41→21:33)
[2022-10-29 06:00] VITALS: BP 138/89; PULSE 108; RESP 17; TEMP 36.8; O2SAT 97
[2022-10-29] MEDS: spironolactone 25 mg Tablet 75 MG PO (09:20)
[2022-10-29] MEDS: benztropine 1 mg Tablet PO ×2 (09:20→20:04)
[2022-10-29] MEDS: paliperidone ER 3 mg Tablet 9 MG PO (09:20)
[2022-10-29] MEDS: nicotine 2 mg Gum BUCCAL (11:46)
[2022-10-29 14:00] VITALS: BP 141/97; PULSE 116; RESP 17; TEMP 36.4; O2SAT 99
--- NOTE | 2022-10-29 16:10 | PC.NURSE ---
Patient denies SI/HI/ AVH. Patient denies anxiety and depression. Patient is meal and medication compliant. Patient interacted appropriately with other peers on the unit.
--- NOTE | 2022-10-29 18:33 | P.NPUPN_ITS ---
Subjective NPU Subjective: Patient presented today reporting that she is feeling okay. She was very seemingly confused with dates and times. She told me she had several children but was not seemingly clear on how many. She was unable to tell me some names and ages and spoke of them in generalities. We discussed the possible difficulties in caring for children and not knowing what was real. There are times that questions seem to get uncomfortable and were met with inappropriate laughter. She seemed to feel that she was ready go home even in the face of the clear psychosis. Mental Status Exam MSE Comments: This is an overweight versus obese white female in hospital scrubs with adequate grooming and limited eye contact. No abnormal movements except for psychomotor retardation. Cooperative with exam in mild distress. Speech was limited with some pauses and decreased rate and volume with limited prosody. Mood described as a little depressed, affect odd. Thought process organized. Thought content: Patient denied suicidal or homicidal ideation, there were no delusions reported but clear paranoid and bizarre and possibly hyperreligious delusions noted, she endorsed auditory hallucinations and seem to suggest this hallucinations at times. Attention and concentration were limited and memory was unreliable but never formally tested. Alert and oriented times person and place. Insight, judgment and impulse control are impaired. Vitals/I&O/Wt Last Vital Signs Temp 97.6 F 10/29/22 14:00 Pulse 116 H 10/29/22 14:00 Resp 17 10/29/22 14:00 BP 141/97 10/29/22 14:00 Pulse Ox 99 10/29/22 14:00 O2 Del Method Room Air 10/29/22 14:00 10/29/22 10/29/22 10/29/22 06:59 14:59 22:59 Intake Total 240 / 240 240 / 480 Balance 240 / 240 240 / 480 A&P Assessment and plan (1) Schizophrenia: (2) PTSD (post-traumatic stress disorder): Plan ?Patient is a 36-year-old female admitted with bizarre delusions currently endorsing limited compliance with her medication regimen that appears currently unable to manage her care safely and continues to require acute inpatient hospitalization 1.? ?Engage? patient in individual ,milieu, and group therapy ? 2. ? We will attempt to gather collateral information from previous providers ? 3. ? TO-15 minute checks on the unit. ? 4.? Recommend sober living treatment at the highest level of care to which the patient is willing to commit. 5. Continue Invega 9mg daily, continue spironolactone at 75mg daily. Patient given IM invega 234mg on 10/24/2022. Prn haldol for agitation. Continue Cogentin 1mg bid. 6. Need to consider second antipsychotic given the intense and fixed nature of her continuum delusions. Involuntary Hold Information 96 Hour Hold: 96 Hour Involuntary Admission: No Attestations NPU Medical Necessity Statement*: Inpatient hospitalization is medically necessary and deemed to be the clinically appropriate intervention at this time. We will initiate medications as deemed medically necessary and adjust them accordingly. The patient's likely length of stay is 7-10 days. Coding Level of Care Code Acute Code for [facility] Fwd Diagnoses Schizophrenia F20.9 PTSD (post-traumatic stress disorder) F43.10
[2022-10-29 20:36] VITALS: BP 120/84; PULSE 107; RESP 18; TEMP 36.8; O2SAT 98
[2022-10-30 06:00] VITALS: BP 102/66; PULSE 96; RESP 16; TEMP 36.9; O2SAT 97
[2022-10-30] MEDS: spironolactone 25 mg Tablet 75 MG PO (08:21)
[2022-10-30] MEDS: benztropine 1 mg Tablet PO ×2 (08:21→20:35)
[2022-10-30] MEDS: paliperidone ER 3 mg Tablet 9 MG PO (08:22)
--- NOTE | 2022-10-30 08:43 | PC.NURSE ---
PT CURRENTLY DENIES SI/HI/AH/VH. PT DOES HOWEVER, APPEAR TO BE INTERNALLY OCCUPIED. PT WAS WILLING AND COOPERATIVE DURING ASSESSMENT. HOWEVER, PT SPEECH WAS DELAYED AND PT APPEARED TO HAVE DIFFICULTY FINDING WORDS. PT DID MANAGE TO SPEAK MORE THAN ONE WORD FOR ASSESSMENT QUESTIONS THIS MORNING. PT WILLINGLY TOOK ALL HER MEDICATIONS.
--- NOTE | 2022-10-30 12:03 | W.PM.NPUPNS ---
Subjective NPU Subjective: Patient presented today reporting that she is doing fine. We continue to discuss her clear and continuous psychosis. Today she focused on the fact that she has the power to read minds. She reports that allows her to not have communicate that much with people. When asked what she read from this senior writer she responded without any pause sex, keys, love, Oreos. It is noteworthy that there Oreo sitting next to this senior writer which had to be moved prior to me taking a seat and I did have keys in my hand. Mental Status Exam MSE Comments: This is an overweight versus obese white female in hospital scrubs with adequate grooming and limited eye contact. No abnormal movements except for psychomotor retardation. Cooperative with exam in mild distress. Speech was limited with some pauses and decreased rate and volume with limited prosody. Mood described as a little depressed, affect odd. Thought process organized. Thought content: Patient denied suicidal or homicidal ideation, there were no delusions reported but clear paranoid and bizarre and possibly hyperreligious delusions noted, she endorsed auditory hallucinations and seem to suggest this hallucinations at times. Attention and concentration were limited and memory was unreliable but never formally tested. Alert and oriented times person and place. Insight, judgment and impulse control are impaired. Vitals/I&O/Wt Last Vital Signs Temp 98.4 F 10/30/22 06:00 Pulse 96 10/30/22 06:00 Resp 16 10/30/22 06:00 BP 102/66 10/30/22 06:00 Pulse Ox 97 10/30/22 06:00 O2 Del Method Room Air 10/30/22 06:00 10/29/22 10/30/22 10/30/22 22:59 06:59 14:59 Intake Total 240 / 480 Balance 240 / 480 A&P Assessment and plan (1) Schizophrenia: (2) PTSD (post-traumatic stress disorder): Plan ?Patient is a 36-year-old female admitted with bizarre delusions currently endorsing limited compliance with her medication regimen that appears currently unable to manage her care safely and continues to require acute inpatient hospitalization 1.? ?Engage? patient in individual ,milieu, and group therapy ? 2. ? We will attempt to gather collateral information from previous providers and about how prevalent psychosis has been. 3. ? TO-15 minute checks on the unit. ? 4.? Recommend sober living treatment at the highest level of care to which the patient is willing to commit. 5. Continue Invega 9mg daily, continue spironolactone at 75mg daily. Patient given IM invega 234mg on 10/24/2022. Prn haldol for agitation. Continue Cogentin 1mg bid. 6. Need to consider second antipsychotic given the intense and fixed nature of her continuum delusions. Involuntary Hold Information 96 Hour Hold: 96 Hour Involuntary Admission: No Attestations NPU Medical Necessity Statement*: Inpatient hospitalization is medically necessary and deemed to be the clinically appropriate intervention at this time. We will initiate medications as deemed medically necessary and adjust them accordingly. The patient's likely length of stay is 7-10 days. Coding Level of Care Code Acute Code for [facility] Fwd Diagnoses Schizophrenia F20.9 PTSD (post-traumatic stress disorder) F43.10
[2022-10-30 14:00] VITALS: BP 134/97; PULSE 118; RESP 18; TEMP 36.4; O2SAT 97
--- NOTE | 2022-10-30 17:22 | PC.NURSE ---
DURING ROUNDS OTHER NURSE FOUND PT HAD TAKEN APART A FLEXI PEN. PT WAS BLOWING INK OUT OF THE END OF THE PEN. PT HAD TAKING APART PEN AND EVEN REMOVED PEN TIP. THESE ITEMS WERE REMOVED FROM PT POSSESSION. PT WILL CONTINUE TO BE MONITORED AND THIS WILL BE RELAYED TO OTHER STAFF.
[2022-10-30 20:16] VITALS: BP 130/91; PULSE 123; RESP 16; TEMP 36.4; O2SAT 98
[2022-10-30] MEDS: trazodone 50 mg Tablet PO (20:35)
[2022-10-31 06:00] VITALS: RESP 16
[2022-10-31] MEDS: spironolactone 25 mg Tablet 75 MG PO (08:41)
[2022-10-31] MEDS: benztropine 1 mg Tablet PO ×2 (08:41→20:13)
[2022-10-31] MEDS: paliperidone ER 3 mg Tablet 9 MG PO (08:42)
--- NOTE | 2022-10-31 08:49 | PC.NURSE ---
SHIFT ASSESSMENT DENIES SI/HI/AVH, HAD TO BE WOKEN UP BY STAFF TO DO ASSESSMENT PATIENT ASKED STAFF FOR A SHOT BEHAVIOR IS WITHDRAWN, FLAT AFFECT. MED COMPLAINT WITH SCHEDULED PILLS THIS MORNING. THANKED STAFF. WILL CONT TO MONITOR
--- NOTE | 2022-10-31 13:15 | W.PM.NPUPNS ---
Subjective NPU Subjective: Patient presented today reporting that she is doing fine. She continues to report the masters that she had described before. Treatment team reached out to her who reported that this behavior started back in April. He reports that she had worked until about 2 years ago. He reported that her sleep and become very limited and that she had some paranoia about people working on phone poles outside of the house paying particular attention to her but never said anything about reading minds. However he reports that they have only been together for 4 years, but he reports her family says that she never behaved like this until April. Mental Status Exam MSE Comments: This is an overweight versus obese white female in hospital scrubs with adequate grooming and limited eye contact. No abnormal movements except for psychomotor retardation. Cooperative with exam in mild distress. Speech was limited with some pauses and decreased rate and volume with limited prosody. Mood described as a little depressed, affect odd. Thought process organized. Thought content: Patient denied suicidal or homicidal ideation, there were no delusions reported but clear paranoid and bizarre and possibly hyperreligious delusions noted, she endorsed auditory hallucinations and seem to suggest this hallucinations at times. Attention and concentration were limited and memory was unreliable but never formally tested. Alert and oriented times person and place. Insight, judgment and impulse control are impaired. Vitals/I&O/Wt Last Vital Signs Temp 97.6 F 10/30/22 20:16 Pulse 123 H 10/30/22 20:16 Resp 16 10/31/22 06:00 BP 130/91 10/30/22 20:16 Pulse Ox 98 10/30/22 20:16 O2 Del Method Room Air 10/30/22 20:16 A&P Assessment and plan (1) Schizophrenia: (2) PTSD (post-traumatic stress disorder): Plan ?Patient is a 36-year-old female admitted with bizarre delusions currently endorsing limited compliance with her medication regimen that appears currently unable to manage her care safely and continues to require acute inpatient hospitalization 1.? ?Engage? patient in individual ,milieu, and group therapy ? 2. ? We will attempt to gather collateral information from previous providers and about how prevalent psychosis has been. 3. ? TO-15 minute checks on the unit. ? 4.? Recommend sober living treatment at the highest level of care to which the patient is willing to commit. 5. Continue Invega 9mg daily, continue spironolactone at 75mg daily. Patient given IM invega 234mg on 10/24/2022. Give Invega Sustenna 156 mg second loading dose. Prn haldol for agitation. Continue Cogentin 1mg bid. 6. Need to consider second antipsychotic given the intense and fixed nature of her continuum delusions. Involuntary Hold Information 96 Hour Hold: 96 Hour Involuntary Admission: No Attestations NPU Medical Necessity Statement*: Inpatient hospitalization is medically necessary and deemed to be the clinically appropriate intervention at this time. We will initiate medications as deemed medically necessary and adjust them accordingly. The patient's likely length of stay is 7-10 days. Coding [facility] Diagn[facility] Schizophrenia F20.9 PTSD (post-traumatic stress disorder) F43.10
[2022-10-31 13:51] VITALS: BP 144/94; PULSE 110; RESP 16; O2SAT 98
--- NOTE | 2022-10-31 16:45 | PC.NURSE ---
PATIENT NOTE TALKED WITH PATIENTS AND HE SAID ALL THIS STARTED IN APR[place] SO SHE WENT TO [place] AND WAS DIAGNOSED WITH BIPOLAR1 AND HAS A THERAPIST AND PSYCHIATRIST. THINGS WERE PRETTY NORMAL TIL ABOUT 3-4 WEEKS AGO. HER STATED THAT SHE WOULD SIT ON THE COUCH FOR HOURS AND JUST ZONE OUT AND SHE WAS NOT SLEEPING AT NIGHT. SHE WAS ALSO PARANOID ABOUT THE PEOPLE WORKING ON THE PHONE POLL OUTSIDE THEIR HOUSE AND THINKING THAT THEY WERE WATCHING HER. 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 STATES THEY HAVE ONLY BEEN TOGETHER FOR ABOUT 4 YEARS BUT HE HAD TALKED WITH HER FAMILY AND THEY SAID SHE HAS NEVER HAD ANYTHING LIKE THIS HAPPEN BEFORE.
[2022-10-31 21:08] VITALS: BP 132/95; PULSE 118; RESP 16; TEMP 36.7; O2SAT 98
[2022-10-31] MEDS: nicotine 4 mg lozenge MUCOUS MEM (22:10)
[2022-11-01 06:00] VITALS: BP 106/70; PULSE 101; RESP 16; O2SAT 98
[2022-11-01] MEDS: spironolactone 25 mg Tablet 75 MG PO (08:15)
[2022-11-01] MEDS: benztropine 1 mg Tablet PO ×2 (08:15→20:03)
[2022-11-01] MEDS: nicotine 4 mg lozenge MUCOUS MEM ×4 (08:15→22:17)
[2022-11-01] MEDS: paliperidone ER 3 mg Tablet 9 MG PO (08:15)
[2022-11-01] MEDS: paliperidone palmitate 156 mg Syringe IM (08:15)
--- NOTE | 2022-11-01 08:21 | PC.NURSE ---
Invega Sustenna 146mg/mL Administered patient's Invega injection into left deltoid muscle. Patient tolerated injection well. No adverse reactions. Will continue to monitor. EXP: 02/08 Lot: [id number]
--- NOTE | 2022-11-01 08:49 | PC.NURSE ---
Patient denies SI, HI, depression and anxiety. Patient denies AVH, but does appear to have delayed response to questions, as though she is listening to something. Patient eager to recieve her Invega injection today. Patient tolerated well.
[2022-11-01 13:28] VITALS: BP 127/94; PULSE 110; RESP 16; TEMP 36.6; O2SAT 97
--- NOTE | 2022-11-01 17:36 | W.PM.NPUPNS ---
Subjective NPU Subjective: Patient presented today reporting that she understands that her said but she reports that because of her special masters she is known him much longer than he thinks. She reports being on lithium and Depakote but at 1 point she thought the Depakote was the Depo shot. So it is unclear how accurate her history can be so we discussed getting information from her previous provider about whether she has had any mood stabilizers like Depakote or lithium. She also reported she has had Abilify before so we will need to work with family and social work team to figure out what is accurate. Mental Status Exam MSE Comments: This is an overweight versus obese white female in hospital scrubs with adequate grooming and limited eye contact. No abnormal movements except for psychomotor retardation. Cooperative with exam in mild distress. Speech was limited with some pauses and decreased rate and volume with limited prosody. Mood described as pretty good, affect odd. Thought process organized. Thought content: Patient denied suicidal or homicidal ideation, there were no delusions reported but clear paranoid and bizarre and possibly hyperreligious delusions noted, she endorsed auditory hallucinations and seem to suggest this hallucinations at times. Attention and concentration were limited and memory was unreliable but never formally tested. Alert and oriented times person and place. Insight, judgment and impulse control are impaired. Vitals/I&O/Wt Last Vital Signs Temp 98.2 F 11/01/22 19:55 Pulse 125 H 11/01/22 19:55 Resp 18 11/01/22 19:55 BP 136/86 11/01/22 19:55 Pulse Ox 98 11/01/22 19:55 O2 Del Method Room Air 10/30/22 20:16 11/01/22 11/01/22 11/02/22 14:59 22:59 06:59 Intake Total 240 / 240 Balance 240 / 240 A&P Assessment and plan (1) Schizophrenia: (2) PTSD (post-traumatic stress disorder): Plan ?Patient is a 36-year-old female admitted with bizarre delusions currently endorsing limited compliance with her medication regimen that appears currently unable to manage her care safely and continues to require acute inpatient hospitalization 1.? ?Engage? patient in individual ,milieu, and group therapy ? 2. ? We will attempt to gather collateral information from previous providers and about how prevalent psychosis has been. 3. ? TO-15 minute checks on the unit. ? 4.? Recommend sober living treatment at the highest level of care to which the patient is willing to commit. 5. Continue Invega 9mg daily, continue spironolactone at 75mg daily. Patient given IM invega 234mg on 10/24/2022. Given Invega Sustenna 156 mg second loading dose today. Prn haldol for agitation. Continue Cogentin 1mg bid. 6. Need to consider second antipsychotic given the intense and fixed nature of her continuum delusions. Discussed the possibility of lithium or Depakote but need to get collateral information as it is unclear if her history is accurate. Involuntary Hold Information 96 Hour Hold: 96 Hour Involuntary Admission: No Attestations NPU Medical Necessity Statement*: Inpatient hospitalization is medically necessary and deemed to be the clinically appropriate intervention at this time. We will initiate medications as deemed medically necessary and adjust them accordingly. The patient's likely length of stay is 7-10 days. Coding Level of Care Code Acute Code for [facility] Diagnoses Schizophrenia F20.9 PTSD (post-traumatic stress disorder) F43.10
[2022-11-01 19:55] VITALS: BP 136/86; PULSE 125; RESP 18; TEMP 36.8; O2SAT 98
[2022-11-02 06:00] VITALS: BP 144/91; PULSE 92; RESP 16; O2SAT 99
--- NOTE | 2022-11-02 07:35 | PC.NURSE ---
During morning assessment, patient denies SI, HI, depression, and anxiety. Patient did admit that she has both auditory and visual hallucinations. Voices are not command hallucinations. When asked if the hallucinations are constant, patient stated yes . When asked if she has experienced hallucinations for a long time, patient answered yes .
[2022-11-02] MEDS: spironolactone 25 mg Tablet 75 MG PO (08:13)
[2022-11-02] MEDS: paliperidone ER 3 mg Tablet 9 MG PO (08:13)
[2022-11-02] MEDS: benztropine 1 mg Tablet PO ×2 (08:13→20:25)
[2022-11-02 13:45] VITALS: BP 140/91; PULSE 117; RESP 16; TEMP 36.8; O2SAT 99
--- NOTE | 2022-11-02 14:37 | PC.NURSE ---
This nurse [facility] and talked to staff. Patient's medication prescription list to be faxed to NPU.
--- NOTE | 2022-11-02 18:30 | W.PM.NPUPNS ---
Subjective NPU Subjective: Patient presented today reporting that she is feeling okay. However she continues to endorse reliance on her hours for functioning. We got an incomplete history on her medication and continue to work with systems to get her information given her poor historical value. Was able to identify that she has been on Depakote but working with pathways to try to figure out what actually was effective. She continues to have some level of confusion as we tried to discuss her children and returning home though she wants to go home soon as possible. Mental Status Exam MSE Comments: This is an overweight versus obese white female in hospital scrubs with adequate grooming and limited eye contact. No abnormal movements except for psychomotor retardation. Cooperative with exam in mild distress. Speech was limited with some pauses and decreased rate and volume with limited prosody. Mood described as pretty good, affect odd. Thought process organized. Thought content: Patient denied suicidal or homicidal ideation, there were no delusions reported but clear paranoid and bizarre and possibly hyperreligious delusions noted, she endorsed auditory hallucinations and seem to suggest this hallucinations at times. Attention and concentration were limited and memory was unreliable but never formally tested. Alert and oriented times person and place. Insight, judgment and impulse control are impaired. Vitals/I&O/Wt Last Vital Signs Temp 98.4 F 11/02/22 19:39 Pulse 110 H 11/02/22 19:39 Resp 18 11/02/22 19:39 BP 132/88 11/02/22 19:39 Pulse Ox 98 11/02/22 19:39 O2 Del Method Room Air 11/02/22 19:39 11/02/22 11/02/22 11/03/22 14:59 22:59 06:59 Intake Total 240 / 240 Balance 240 / 240 A&P Assessment and plan (1) Schizophrenia: (2) PTSD (post-traumatic stress disorder): Plan ?Patient is a 36-year-old female admitted with bizarre delusions currently endorsing limited compliance with her medication regimen that appears currently unable to manage her care safely and continues to require acute inpatient hospitalization 1.? ?Engage? patient in individual ,milieu, and group therapy ? 2. ? We will attempt to gather collateral information from previous providers and about how prevalent psychosis has been. 3. ? TO-15 minute checks on the unit. ? 4.? Recommend sober living treatment at the highest level of care to which the patient is willing to commit. 5. Continue Invega 9mg daily, continue spironolactone at 75mg daily. Patient given IM invega 234mg on 10/24/2022. Given Invega Sustenna 156 mg second loading dose 11/01/2022. Prn haldol for agitation. Continue Cogentin 1mg bid. 6. Need to consider second antipsychotic given the intense and fixed nature of her continuum delusions. Discussed the possibility of lithium or Depakote but need to get collateral information as it is unclear if her history is accurate. Involuntary Hold Information 96 Hour Hold: 96 Hour Involuntary Admission: No Attestations NPU Medical Necessity Statement*: Inpatient hospitalization is medically necessary and deemed to be the clinically appropriate intervention at this time. We will initiate medications as deemed medically necessary and adjust them accordingly. The patient's likely length of stay is 7-10 days. Coding Level of Care Code Acute Code for [facility] Fwd Diagnoses Schizophrenia F20.9 PTSD (post-traumatic stress disorder) F43.10
[2022-11-02 19:39] VITALS: BP 132/88; PULSE 110; RESP 18; TEMP 36.9; O2SAT 98
[2022-11-03 06:00] VITALS: BP 133/87; PULSE 110; RESP 18; TEMP 36.7; O2SAT 98
[2022-11-03] MEDS: benztropine 1 mg Tablet PO ×2 (09:25→20:32)
[2022-11-03] MEDS: paliperidone ER 3 mg Tablet 9 MG PO (09:25)
[2022-11-03] MEDS: spironolactone 25 mg Tablet 75 MG PO (09:25)
[2022-11-03] MEDS: nicotine 4 mg lozenge MUCOUS MEM ×3 (09:28→21:33)
[2022-11-03 14:00] VITALS: BP 131/88; PULSE 100; RESP 18; TEMP 36.9; O2SAT 98
--- NOTE | 2022-11-03 16:02 | W.PM.NPUPNS ---
Subjective NPU Subjective: Patient presented today reporting that things are going okay. We discussed that getting her information is proved more difficult than we had hoped. She was doing fine for the most part during the day and then she had a strange moment when she came to this expert medical writer before I left for the night reporting having some special awareness and that this expert medical writer needed to open the door so that she can get out we discussed planning for discharge and making sure that she and her children will be safe when that occurred. Mental Status Exam MSE Comments: This is an overweight versus obese white female in hospital scrubs with adequate grooming and limited eye contact. No abnormal movements except for psychomotor retardation. Cooperative with exam in mild distress. Speech was limited with some pauses and decreased rate and volume with limited prosody. Mood described as okay, affect odd. Thought process organized. Thought content: Patient denied suicidal or homicidal ideation, there were no delusions reported but clear paranoid and bizarre and possibly hyperreligious delusions noted, she endorsed auditory hallucinations and seem to suggest this hallucinations at times. Attention and concentration were limited and memory was unreliable but never formally tested. Alert and oriented times person and place. Insight, judgment and impulse control are impaired. Vitals/I&O/Wt Last Vital Signs Temp 98.4 F 11/03/22 14:00 Pulse 100 11/03/22 14:00 Resp 18 11/03/22 14:00 BP 131/88 11/03/22 14:00 Pulse Ox 98 11/03/22 14:00 O2 Del Method Room Air 11/03/22 06:00 11/03/22 11/03/22 11/03/22 06:59 14:59 22:59 Intake Total 0 / 0 Balance 0 / 0 A&P Assessment and plan (1) Schizophrenia: (2) PTSD (post-traumatic stress disorder): Plan ?Patient is a 36-year-old female admitted with bizarre delusions currently endorsing limited compliance with her medication regimen that appears currently unable to manage her care safely and continues to require acute inpatient hospitalization 1.? ?Engage? patient in individual ,milieu, and group therapy ? 2. ? We will attempt to gather collateral information from previous providers and about how prevalent psychosis has been. 3. ? TO-15 minute checks on the unit. ? 4.? Recommend sober living treatment at the highest level of care to which the patient is willing to commit. 5. Continue Invega 9mg daily, continue spironolactone at 75mg daily. Patient given IM invega 234mg on 10/24/2022. Given Invega Sustenna 156 mg second loading dose 11/01/2022. Prn haldol for agitation. Continue Cogentin 1mg bid. 6. Need to consider second antipsychotic given the intense and fixed nature of her continuum delusions. Discussed the possibility of lithium or Depakote but need to get collateral information as it is unclear if her history is accurate. Involuntary Hold Information 96 Hour Hold: 96 Hour Involuntary Admission: No Attestations NPU Medical Necessity Statement*: Inpatient hospitalization is medically necessary and deemed to be the clinically appropriate intervention at this time. We will initiate medications as deemed medically necessary and adjust them accordingly. The patient's likely length of stay is 7-10 days. Coding Level of Care Code Acute Code for [facility] Fwd Diagnoses Schizophrenia F20.9 PTSD (post-traumatic stress disorder) F43.10
[2022-11-03 19:56] VITALS: BP 142/91; PULSE 120; RESP 18; TEMP 36.6; O2SAT 95
[2022-11-04 06:00] VITALS: BP 144/96; PULSE 120; RESP 18; O2SAT 99
[2022-11-04] MEDS: benztropine 1 mg Tablet PO ×2 (08:42→20:42)
[2022-11-04] MEDS: spironolactone 25 mg Tablet 75 MG PO (08:43)
[2022-11-04] MEDS: paliperidone ER 3 mg Tablet 9 MG PO (08:43)
[2022-11-04 14:00] VITALS: BP 127/88; PULSE 116; RESP 18; TEMP 36.6; O2SAT 97
--- NOTE | 2022-11-04 18:30 | P.NPUPN_ITS ---
Subjective NPU Subjective: Patient presented today continuing to be unchanged and somewhat resistant to the idea of additional medication. Reporting that she is feeling much better and unable to clarify how she is feeling better. She reports that she feels she is at her baseline. We agreed that we would work with her to see where he feels things are given that she will involve and given concerns about her having a clear enough bases in reality to be a primary caregiver. Mental Status Exam MSE Comments: This is an overweight versus obese white female in hospital scrubs with adequate grooming and limited eye contact. No abnormal movements except for psychomotor retardation. Cooperative with exam in mild distress. Speech was limited with some pauses and decreased rate and volume with limited prosody. Mood described as okay, affect odd. Thought process organized. Thought content: Patient denied suicidal or homicidal ideation, there were no delusions reported but clear paranoid and bizarre and possibly hyperreligious delusions noted, she endorsed auditory hallucinations and seem to suggest this hallucinations at times. Attention and concentration were limited and memory was unreliable but n ever formally tested. Alert and oriented times person and place. Insight, judgment and impulse control are impaired. Vitals/I&O/Wt Last Vital Signs Temp 98.3 F 11/04/22 20:25 Pulse 115 H 11/04/22 20:25 Resp 18 11/04/22 20:25 BP 133/86 11/04/22 20:25 Pulse Ox 97 11/04/22 20:25 O2 Del Method Room Air 11/04/22 20:25 A&P Assessment and plan (1) Schizophrenia: (2) PTSD (post-traumatic stress disorder): Plan ?Patient is a 36-year-old female admitted with bizarre delusions currently endorsing limited compliance with her medication regimen that appears currently unable to manage her care safely and continues to require acute inpatient hospitalization 1.? ?Engage? patient in individual ,milieu, and group therapy ? 2. ? We will attempt to gather collateral information from previous providers and about how prevalent psychosis has been. 3. ? TO-15 minute checks on the unit. ? 4.? Recommend sober living treatment at the highest level of care to which the patient is willing to commit. 5. Continue Invega 9mg daily, continue spironolactone at 75mg daily. Patient given IM invega 234mg on 10/24/2022. Given Invega Sustenna 156 mg second loading dose 11/01/2022. Prn haldol for agitation. Continue Cogentin 1mg bid. 6. Need to consider second antipsychotic given the intense and fixed nature of her continuum delusions. Discussed the possibility of lithium or Depakote but need to get collateral information as it is unclear if her history is accurate. Involuntary Hold Information 96 Hour Hold: 96 Hour Involuntary Admission: No Attestations NPU Medical Necessity Statement*: Inpatient hospitalization is medically necessary and deemed to be the clinically appropriate intervention at this time. We will initiate medications as deemed medically necessary and adjust them accordingly. The patient's likely length of stay is 7-10 days. Coding Level of Care Code Acute Code for [facility] Fwd Diagnoses Schizophrenia F20.9 PTSD (post-traumatic stress disorder) F43.10
[2022-11-04 20:25] VITALS: BP 133/86; PULSE 115; RESP 18; TEMP 36.8; O2SAT 97
[2022-11-05 06:00] VITALS: BP 138/91; PULSE 122; RESP 18; O2SAT 99
[2022-11-05] MEDS: paliperidone ER 3 mg Tablet 9 MG PO (08:09)
[2022-11-05] MEDS: spironolactone 25 mg Tablet 75 MG PO (08:09)
[2022-11-05] MEDS: benztropine 1 mg Tablet PO ×2 (08:09→20:24)
[2022-11-05] MEDS: nicotine 4 mg lozenge MUCOUS MEM ×3 (10:10→20:25)
--- NOTE | 2022-11-05 12:20 | W.PM.NPUPNS ---
Subjective NPU Subjective: Patient presented today reporting that she is doing okay. She continues to seem odd and somewhat confused. She continues to ask about discharge and cannot explain why she is not being accurate in her reporting. We discussed identifying the great challenges in her history giving and meeting with her tomorrow to try to understand the situation in greater depth. She seems to feel that if we speak with him that we will know that discharging is the right thing. Mental Status Exam MSE Comments: This is an overweight versus obese white female in hospital scrubs with adequate grooming and limited eye contact. No abnormal movements except for psychomotor retardation. Cooperative with exam in mild distress. Speech was limited with some pauses and decreased rate and volume with limited prosody. Mood described as okay, affect odd. Thought process organized. Thought content: Patient denied suicidal or homicidal ideation, there were no delusions reported but clear paranoid, bizarre and possibly hyperreligious delusions noted, she endorsed auditory hallucinations and seem to suggest this hallucinations at times. Attention and concentration were limited and memory was unreliable but never formally tested. Alert and oriented times person and place. Insight, judgment and impulse control are impaired. Vitals/I&O/Wt Last Vital Signs Temp 98.0 F 11/05/22 20:17 Pulse 105 H 11/05/22 20:17 Resp 18 11/05/22 20:17 BP 133/93 11/05/22 20:17 Pulse Ox 98 11/05/22 20:17 O2 Del Method Room Air 11/05/22 20:17 A&P Assessment and plan (1) Schizophrenia: (2) PTSD (post-traumatic stress disorder): Plan ?Patient is a 36-year-old female admitted with bizarre delusions currently endorsing limited compliance with her medication regimen that appears currently unable to manage her care safely and continues to require acute inpatient hospitalization 1.? ?Engage? patient in individual ,milieu, and group therapy ? 2. ? We will attempt to gather collateral information from previous providers and about how prevalent psychosis has been. 3. ? TO-15 minute checks on the unit. ? 4.? Recommend sober living treatment at the highest level of care to which the patient is willing to commit. 5. Continue Invega 9mg daily, continue spironolactone at 75mg daily. Patient given IM invega 234mg on 10/24/2022. Given Invega Sustenna 156 mg second loading dose 11/01/2022. Prn haldol for agitation. Continue Cogentin 1mg bid. 6. Need to consider second antipsychotic given the intense and fixed nature of her continuum delusions. Discussed the possibility of lithium or Depakote but need to get collateral information as it is unclear if her history is accurate. Involuntary Hold Information 96 Hour Hold: 96 Hour Involuntary Admission: No Attestations NPU Medical Necessity Statement*: Inpatient hospitalization is medically necessary and deemed to be the clinically appropriate intervention at this time. We will initiate medications as deemed medically necessary and adjust them accordingly. The patient's likely length of stay is 7-10 days. Coding Level of Care Code Acute Code for [facility] Fwd Diagnoses Schizophrenia F20.9 PTSD (post-traumatic stress disorder) F43.10
[2022-11-05 14:00] VITALS: BP 130/93; PULSE 130; RESP 18; TEMP 36.8; O2SAT 95
[2022-11-05 20:17] VITALS: BP 133/93; PULSE 105; RESP 18; TEMP 36.7; O2SAT 98
[2022-11-06 06:00] VITALS: BP 128/81; PULSE 133; RESP 18; O2SAT 98
[2022-11-06] MEDS: paliperidone ER 3 mg Tablet 9 MG PO (10:00)
[2022-11-06] MEDS: spironolactone 25 mg Tablet 75 MG PO (10:00)
[2022-11-06] MEDS: benztropine 1 mg Tablet PO ×2 (10:00→20:44)
[2022-11-06] MEDS: nicotine 4 mg lozenge MUCOUS MEM (10:01)
[2022-11-06 14:00] VITALS: BP 131/87; PULSE 128; RESP 16; TEMP 36.6; O2SAT 96
--- NOTE | 2022-11-06 16:39 | W.PM.NPUPNS ---
Subjective NPU Subjective: Patient presented today unchanged. She endorsed an openness to initiate different medications if we think it is necessary. Met with and got a much better sense of the situation. He reports a similar event about 6 months ago in the fall and reports that she did have the Depakote but denied any history of lithium or Abilify. She and I discussed the risks, benefits and alternatives of initiating lithium and she understood and agreed to proceed as documented in this note. Mental Status Exam MSE Comments: This is an overweight versus obese white female in hospital scrubs with adequate grooming and limited eye contact. No abnormal movements except for psychomotor retardation. Cooperative with exam in mild distress. Speech was limited with some pauses and decreased rate and volume with limited prosody. Mood described as good as I think I am ready to go, affect odd. Thought process organized. Thought content: Patient denied suicidal or homicidal ideation, there were no delusions reported but clear paranoid, bizarre and possibly hyperreligious delusions noted, she endorsed auditory hallucinations and seem to suggest this hallucinations at times. Attention and concentration were limited and memory was unreliable but never formally tested. Alert and oriented times person and place. Insight, judgment and impulse control are impaired. Vitals/I&O/Wt Last Vital Signs Temp 98.2 F 11/06/22 19:29 Pulse 130 H 11/06/22 19:29 Resp 18 11/06/22 19:29 BP 110/91 11/06/22 19:29 Pulse Ox 97 11/06/22 19:29 O2 Del Method Room Air 11/06/22 19:29 Weight last 48 hrs Weight 88.269 kg A&P Assessment and plan (1) Schizophrenia: (2) PTSD (post-traumatic stress disorder): Plan ?Patient is a 36-year-old female admitted with bizarre delusions currently endorsing limited compliance with her medication regimen that appears currently unable to manage her care safely and continues to require acute inpatient hospitalization 1.? ?Engage? patient in individual ,milieu, and group therapy ? 2. ? We will attempt to gather collateral information from previous providers and about how prevalent psychosis has been. 3. ? TO-15 minute checks on the unit. ? 4.? Recommend sober living treatment at the highest level of care to which the patient is willing to commit. 5. Continue Invega 9mg daily, continue spironolactone at 75mg daily. Patient given IM invega 234mg on 10/24/2022. Given Invega Sustenna 156 mg second loading dose 11/01/2022. Prn haldol for agitation. Continue Cogentin 1mg bid. 6. Need to consider second antipsychotic given the intense and fixed nature of her continuum delusions. Discussed the possibility of lithium or Depakote but need to get collateral information as it is unclear if her history is accurate. Start lithium 300 mg p.o. twice daily. Involuntary Hold Information 96 Hour Hold: 96 Hour Involuntary Admission: No Attestations NPU Medical Necessity Statement*: Inpatient hospitalization is medically necessary and deemed to be the clinically appropriate intervention at this time. We will initiate medications as deemed medically necessary and adjust them accordingly. The patient's likely length of stay is 7-10 days. Coding Level of Care Code Acute Code for [facility] Fwd Diagnoses Schizophrenia F20.9 PTSD (post-traumatic stress disorder) F43.10
[2022-11-06] MEDS: lithium carbonate 300 mg Capsule PO (18:51)
[2022-11-06 19:29] VITALS: BP 133/90; PULSE 117; RESP 18; TEMP 36.8; O2SAT 97
[2022-11-07 06:00] VITALS: BP 110/91; PULSE 130; RESP 18; O2SAT 97
--- NOTE | 2022-11-07 07:47 | P.NPUPN_ITS ---
Subjective NPU Subjective: Patient presented today reporting that she is feeling okay. We discussed getting additional lab studies to identify whether there were other issues that might be impacting her mental health. In the meantime she reports tolerating the initiation of lithium 300 mg p.o. twice daily. She continues to be desirous of discharge but excepting of her need to be here. Mental Status Exam MSE Comments: This is an overweight versus obese white female in hospital scrubs with adequate grooming and limited eye contact. No abnormal movements except for psychomotor retardation. Cooperative with exam in mild distress. Speech was limited with some pauses and decreased rate and volume with limited prosody. Mood described as good as I think I am ready to go, affect odd. Thought process organized. Thought content: Patient denied suicidal or homicidal ideation, there were no delusions reported but clear paranoid, bizarre and possibly hyperreligious delusions noted, she endorsed auditory hallucinations and seem to suggest this hallucinations at times. Attention and concentration were limited and memory was unreliable but never formally tested. Alert and oriented times person and place. Insight, judgment and impulse control are impaired. Vitals/I&O/Wt Last Vital Signs Temp 98.2 F 11/06/22 19:29 Pulse 130 H 11/07/22 06:00 Resp 18 11/07/22 06:00 BP 110/91 11/07/22 06:00 Pulse Ox 97 11/07/22 06:00 O2 Del Method Room Air 11/06/22 19:29 Weight last 48 hrs Weight 88.269 kg Data NPU 11/07/22 12:40 11/07/22 15:55 A&P Assessment and plan (1) Schizophrenia: (2) PTSD (post-traumatic stress disorder): Plan ?Patient is a 36-year-old female admitted with bizarre delusions currently endorsing limited compliance with her medication regimen that appears currently unable to manage her care safely and continues to require acute inpatient ho spitalization 1.? ?Engage? patient in individual ,milieu, and group therapy ? 2. ? We will attempt to gather collateral information from previous providers and about how prevalent psychosis has been. 3. ? TO-15 minute checks on the unit. ? 4.? Recommend sober living treatment at the highest level of care to which the patient is willing to commit. 5. Continue Invega 9mg daily, continue spironolactone at 75mg daily. Patient given IM invega 234mg on 10/24/2022. Given Invega Sustenna 156 mg second loading dose 11/01/2022. Prn haldol for agitation. Continue Cogentin 1mg bid. 6. Need to consider second antipsychotic given the intense and fixed nature of her continuum delusions. Discussed the possibility of lithium or Depakote but need to get collateral information as it is unclear if her history is accurate. Started lithium 300 mg p.o. twice daily. Involuntary Hold Information 96 Hour Hold: 96 Hour Involuntary Admission: No Attestations NPU Medical Necessity Statement*: Inpatient hospitalization is medically necessary and deemed to be the clinically appropriate intervention at this time. We will initiate medications as deemed medically necessary and adjust them accordingly. The patient's likely length of stay is 7-10 days. Coding Level of Care Code Acute Code for [facility] Fwd Diagnoses Schizophrenia F20.9 PTSD (post-traumatic stress disorder) F43.10
[2022-11-07] MEDS: spironolactone 25 mg Tablet 75 MG PO (08:22)
[2022-11-07] MEDS: benztropine 1 mg Tablet PO ×2 (08:22→23:22)
[2022-11-07] MEDS: lithium carbonate 300 mg Capsule PO ×2 (08:22→17:16)
[2022-11-07] MEDS: paliperidone ER 3 mg Tablet 9 MG PO (08:22)
[2022-11-07 10:22] LABS: Bilirubin Urine Neg (Negative); Blood Urine Neg (Negative); Glucose Urine UA Norm (Normal); Ketones Urine Negative (Negative); Leukocyte Esterase Urine Negative (Negative); Nitrate Urine Negative (Negative); Protein Urine Neg (Negative); Sulfosalicylic Acid Urine Negative (Negative); Urine Appearance Clear (CLEAR); Urine Color Yellow (Yellow); Urobilinogen Urine Norm (Negative); pH Urine 8 (5-7)
[2022-11-07 10:23] LABS: Squamous Epithelial Cell Urine 0-4 /hpf (0-5)
[2022-11-07 10:25] LABS: Bacteria Urine 1+ /hpf
[2022-11-07 10:26] LABS: Add Urine Culture? No
[2022-11-07 13:22] LABS: Eosinophils % 0.3 %; Hematocrit 42.7 % (37.0-47.0); Hemoglobin 13.8 g/dL (11.5-15.3); Lymphocytes # 1.2 10^3/uL (0.8-4.8); Lymphocytes % 17.1 %; Mean Corpuscular HGB Conc 32.3 g/dL (30.0-36.0); Monocytes # 0.5 10^3/uL (0.2-0.9); Monocytes % 7.6 %; Neutrophils # 5.03 10^3/uL (1.8-7.7); Neutrophils % 74.7 %; Nucleated Red Blood Cells % 0 %; Platelet Count 251 10^3/cmm (130-400); Red Blood Count 4.45 10^6/uL (4.1-5.3); Red Cell Distribution Width 12.1 % (12.1-15.1); White Blood Count 6.7 10^3/uL (4.0-10.0)
[2022-11-07 13:26] LABS: Erythrocyte Sedimentation Rate 2 mm/hr (0-15)
[2022-11-07 14:00] VITALS: BP 129/88; PULSE 112; RESP 18; TEMP 37; O2SAT 98
[2022-11-07 16:40] LABS: Alanine Aminotransferase 8 U/L (0-33); Albumin Level 4.2 g/dL (3.5-5.2); Alkaline Phosphatase 54 U/L (35-105); Anion Gap 13.3 (5-19); Aspartate Amino Transferase 9 U/L (0-32); Blood Urea Nitrogen 7 mg/dL (6-20); Calcium 9.5 mg/dL (8.5-10.5); Carbon Dioxide 24 mmol/L (22-29); Chloride 100 mmol/L (98-107); Globulin 2.2 g/dL (1.3-4.6); Glomerular Filtration Rate 111.9 mL/min (90-130); Glucose 122 mg/dL (65-115); Osmolality Calculated 275 mOsm/kg (285-295); Potassium 4.3 mmol/L (3.5-5.1); Sodium 133 mmol/L (136-145); Thyroid Stimulating Hormone 1.95 uIU/mL (0.27-4.20); Total Bilirubin 0.2 mg/dL (0.15-1.2); Total Protein 6.4 g/dL (6.6-8.7)
[2022-11-07 17:41] LABS: Free T4 Free Thyroxine 1.31 ng/dL (0.82-1.77)
[2022-11-07] MEDS: nicotine 4 mg lozenge MUCOUS MEM ×2 (20:50→20:51)
[2022-11-07 20:55] VITALS: BP 137/96; PULSE 119; RESP 18; TEMP 36.6; O2SAT 96
[2022-11-07] MEDS: trazodone 50 mg Tablet PO (21:11)
[2022-11-08 06:00] VITALS: BP 125/77; PULSE 111; RESP 18; TEMP 36.6; O2SAT 98
--- NOTE | 2022-11-08 07:35 | PC.NURSE ---
During morning assessment, patient sitting on bed. patient denies all for this nurse. Patient asked about the date and time. All questions answered.
[2022-11-08] MEDS: lithium carbonate 300 mg Capsule PO ×2 (08:40→17:11)
[2022-11-08] MEDS: paliperidone ER 3 mg Tablet 9 MG PO (08:40)
[2022-11-08] MEDS: spironolactone 25 mg Tablet 75 MG PO (08:40)
[2022-11-08] MEDS: benztropine 1 mg Tablet PO ×2 (08:40→19:48)
[2022-11-08 12:50] LABS: HIV 1 & 2 Antibody Non-Reactive (Non-Reactiv); HIV 1 & 2 Antigen Non-Reactive (Non-Reactiv)
[2022-11-08 12:58] LABS: Vitamin B12 163 pg/mL (232-1245)
[2022-11-08 14:00] VITALS: BP 122/85; PULSE 109; RESP 16; TEMP 36.6; O2SAT 99
--- NOTE | 2022-11-08 16:12 | P.NPUPN_ITS ---
Subjective NPU Subjective: Patient presented today with continued psychosis. She did for the first time however speak more easily about not having children and her current circumstance. We discussed the lab findings as well as getting some additional labs including B12 and MARQUITA. She continues to be open to medication management and we discussed the possibility of increasing her lithium tomorrow. Mental Status Exam MSE Comments: This is an overweight versus obese white female in hospital scrubs with adequate grooming and limited eye contact. No abnormal movements except for psychomotor retardation. Cooperative with exam in mild distress. Speech was limited with some pauses and decreased rate and volume with limited prosody. Mood described as okay, affect less odd. Thought process organized. Thought content: Patient denied suicidal or homicidal ideation, there were no delusions reported but clear paranoid, bizarre and possibly hyperreligious delusions noted, she endorsed auditory hallucinations and seem to suggest this hallucinations at times. Attention and concentration were limited and memory was unreliable but never formally tested. Alert and oriented times person and place. Insight, judgment and impulse control are impaired. Vitals/I&O/Wt Last Vital Signs Temp 98 F 11/08/22 14:00 Pulse 109 H 11/08/22 14:00 Resp 16 11/08/22 14:00 BP 122/85 11/08/22 14:00 Pulse Ox 99 11/08/22 14:00 O2 Del Method Room Air 11/08/22 14:00 Weight last 48 hrs Weight 88.269 kg Data NPU 11/07/22 12:40 11/07/22 15:55 A&P Assessment and plan (1) Schizophrenia: (2) PTSD (post-traumatic stress disorder): Plan ?Patient is a 36-year-old female admitted with bizarre delusions currently endorsing limited compliance with her medication regimen that appears currently unable to manage her care safely and continues to require acute inpatient hospitalization 1.? ?Engage? patient in individual ,milieu, and group therapy ? 2. ? We will attempt to gather collateral information from previous providers and about how prevalent psychosis has been. 3. ? TO-15 minute checks on the unit. ? 4.? Recommend sober living treatment at the highest level of care to which the patient is willing to commit. 5. Continue Invega 9mg daily, continue spironolactone at 75mg daily. Patient given IM invega 234mg on 10/24/2022. Given Invega Sustenna 156 mg second loading dose 11/01/2022. Prn haldol for agitation. Continue Cogentin 1mg bid. 6. Need to consider second antipsychotic given the intense and fixed nature of her continuum delusions. Discussed the possibility of lithium or Depakote but need to get collateral information as it is unclear if her history is accurate. Started lithium 300 mg p.o. twice daily. Involuntary Hold Information 96 Hour Hold: 96 Hour Involuntary Admission: No Attestations NPU Medical Necessity Statement*: Inpatient hospitalization is medically necessary and deemed to be the clinically appropriate intervention at this time. We will initiate medications as deemed medically necessary and adjust them accordingly. The patient's likely length of stay is 6-9 days. Coding Level of Care Code Acute Code for [facility] Diagnoses Schizophrenia F20.9 PTSD (post-traumatic stress disorder) F43.10
[2022-11-08 19:34] VITALS: BP 141/94; PULSE 125; RESP 18; O2SAT 97
[2022-11-09] MEDS: trazodone 50 mg Tablet PO (00:35)
[2022-11-09 06:00] VITALS: BP 134/84; PULSE 137; RESP 16; O2SAT 99
[2022-11-09] MEDS: lithium carbonate 300 mg Capsule PO ×2 (08:12→17:31)
[2022-11-09] MEDS: paliperidone ER 3 mg Tablet 9 MG PO (08:12)
[2022-11-09] MEDS: benztropine 1 mg Tablet PO ×2 (08:12→19:40)
[2022-11-09] MEDS: spironolactone 25 mg Tablet 75 MG PO (08:12)
[2022-11-09] MEDS: nicotine 4 mg lozenge MUCOUS MEM (11:22)
[2022-11-09 14:00] VITALS: BP 101/60; PULSE 120; RESP 16; TEMP 36.6; O2SAT 97
--- NOTE | 2022-11-09 14:47 | W.PM.NPUPNS ---
Subjective NPU Subjective: Patient presented today reporting that she is feeling okay. No bizarre behaviors reported by staff. She continues to be a little more able to discuss her life in a realistic way but continues to also seem hesitant and guarded. We continue to discuss the labs that are pending and medications including a plan to increase lithium tomorrow. Mental Status Exam MSE Comments: This is an overweight versus obese white female in hospital scrubs with adequate grooming and limited eye contact. No abnormal movements except for psychomotor retardation. Cooperative with exam in mild distress. Speech was limited with some pauses and decreased rate and volume with limited prosody. Mood described as okay, affect less odd. Thought process organized. Thought content: Patient denied suicidal or homicidal ideation, there were no delusions reported but clear paranoid, bizarre and possibly hyperreligious delusions noted, she endorsed auditory hallucinations and seem to suggest this hallucinations at times. Attention and concentration were limited and memory was unreliable but never formally tested. Alert and oriented times person and place. Insight, judgment and impulse control are impaired. Vitals/I&O/Wt Last Vital Signs Temp 98 F 11/09/22 14:00 Pulse 120 H 11/09/22 14:00 Resp 16 11/09/22 14:00 BP 101/60 11/09/22 14:00 Pulse Ox 97 11/09/22 14:00 O2 Del Method Room Air 11/09/22 14:00 Data NPU 11/07/22 12:40 11/07/22 15:55 A&P Assessment and plan (1) Schizophrenia: (2) PTSD (post-traumatic stress disorder): Plan ?Patient is a 36-year-old female admitted with bizarre delusions currently endorsing limited compliance with her medication regimen that appears currently unable to manage her care safely and continues to require acute inpatient hospitalization 1.? ?Engage? patient in individual ,milieu, and group therapy ? 2. ? We will attempt to gather collateral information from previous providers and about how prevalent psychosis has been. 3. ? TO-15 minute checks on the unit. ? 4.? Recommend sober living treatment at the highest level of care to which the patient is willing to commit. 5. Continue Invega 9mg daily, continue spironolactone at 75mg daily. Patient given IM invega 234mg on 10/24/2022. Given Invega Sustenna 156 mg second loading dose 11/01/2022. Prn haldol for agitation. Continue Cogentin 1mg bid. 6. Need to consider second antipsychotic given the intense and fixed nature of her continuum delusions. Discussed the possibility of lithium or Depakote but need to get collateral information as it is unclear if her history is accurate. Started lithium 300 mg p.o. twice daily. Involuntary Hold Information 96 Hour Hold: 96 Hour Involuntary Admission: No Attestations NPU Medical Necessity Statement*: Inpatient hospitalization is medically necessary and deemed to be the clinically appropriate intervention at this time. We will initiate medications as deemed medically necessary and adjust them accordingly. The patient's likely length of stay is 5-8 days. Coding Level of Care Code Acute Code for [facility] Diagnoses Schizophrenia F20.9 PTSD (post-traumatic stress disorder) F43.10
[2022-11-09 15:26] LABS: Homocysteine 11.31
[2022-11-09 15:43] LABS: Folate Level 15.9 ng/mL (4.8-37.3)
[2022-11-09 20:37] VITALS: BP 131/86; PULSE 109; RESP 15; TEMP 36.4; O2SAT 98
[2022-11-10 06:00] VITALS: BP 109/74; PULSE 115; RESP 18; O2SAT 98
[2022-11-10] MEDS: benztropine 1 mg Tablet PO ×2 (09:17→20:03)
[2022-11-10] MEDS: paliperidone ER 3 mg Tablet 9 MG PO (09:17)
[2022-11-10] MEDS: lithium carbonate 300 mg Capsule PO ×2 (09:17→17:20)
[2022-11-10] MEDS: spironolactone 25 mg Tablet 75 MG PO (09:17)
[2022-11-10 14:00] VITALS: BP 130/85; PULSE 133; RESP 18; TEMP 36.6; O2SAT 96
[2022-11-10 16:34] LABS: Anti-Nuclear Antibody Screen NEGATIVE (NEGATIVE)
[2022-11-10 17:00] LABS: RPR w(Moniotor) w/REFL Titer NON-REACTIVE (NON-REACTIVE)
--- NOTE | 2022-11-10 18:52 | W.PM.NPUPNS ---
Subjective NPU Subjective: Patient presented today reporting that she is doing okay with the lithium. We discussed getting a lithium level in the morning and then likely increasing the lithium. We discussed the risks, benefits and alternatives and she understood and agreed to proceed as is documented in this note. She continues to embrace delusional content but did report that things were getting quieter. Mental Status Exam MSE Comments: This is an overweight versus obese white female in hospital scrubs with adequate grooming and limited eye contact. No abnormal movements except for psychomotor retardation. Cooperative with exam in mild distress. Speech was limited with some pauses and decreased rate and volume with limited prosody. Mood described as okay, affect less odd. Thought process organized. Thought content: Patient denied suicidal or homicidal ideation, there were no delusions reported but clear paranoid, bizarre and possibly hyperreligious delusions noted, she endorsed auditory hallucinations and seem to suggest this hallucinations at times. Attention and concentration were limited and memory was unreliable but never formally tested. Alert and oriented times person and place. Insight, judgment and impulse control are impaired. Vitals/I&O/Wt Last Vital Signs Temp 97.9 F 11/10/22 20:23 Pulse 102 H 11/10/22 20:23 Resp 16 11/10/22 20:23 BP 116/72 11/10/22 20:23 Pulse Ox 95 11/10/22 20:23 O2 Del Method Room Air 11/10/22 20:23 Data NPU 11/07/22 12:40 11/07/22 15:55 A&P Assessment and plan (1) Schizophrenia: (2) PTSD (post-traumatic stress disorder): Plan ?Patient is a 36-year-old female admitted with bizarre delusions currently endorsing limited compliance with her medication regimen that appears currently unable to manage her care safely and continues to require acute inpatient hospitalization 1.? ?Engage? patient in individual ,milieu, and group therapy ? 2. ? We will attempt to gather collateral information from previous providers and about how prevalent psychosis has been. 3. ? TO-15 minute checks on the unit. ? 4.? Recommend sober living treatment at the highest level of care to which the patient is willing to commit. 5. Continue Invega 9mg daily, continue spironolactone at 75mg daily. Patient given IM invega 234mg on 10/24/2022. Given Invega Sustenna 156 mg second loading dose 11/01/2022. Prn haldol for agitation. Continue Cogentin 1mg bid. 6. Need to consider second antipsychotic given the intense and fixed nature of her continuum delusions. Discussed the possibility of lithium or Depakote but need to get collateral information as it is unclear if her history is accurate. Started lithium 300 mg p.o. twice daily. Check lithium level in the morning then increase as appropriate. Involuntary Hold Information 96 Hour Hold: 96 Hour Involuntary Admission: No Attestations NPU Medical Necessity Statement*: Inpatient hospitalization is medically necessary and deemed to be the clinically appropriate intervention at this time. We will initiate medications as deemed medically necessary and adjust them accordingly. The patient's likely length of stay is 5-8 days. Coding Level of Care Code Acute Code for [facility] Fwd Diagnoses Schizophrenia F20.9 PTSD (post-traumatic stress disorder) F43.10
[2022-11-10 20:23] VITALS: BP 116/72; PULSE 102; RESP 16; TEMP 36.6; O2SAT 95
[2022-11-11 06:00] VITALS: BP 133/87; PULSE 123; RESP 18; O2SAT 98
[2022-11-11] MEDS: paliperidone ER 3 mg Tablet 9 MG PO (09:15)
[2022-11-11] MEDS: nicotine 4 mg lozenge MUCOUS MEM ×2 (09:15→17:57)
[2022-11-11] MEDS: benztropine 1 mg Tablet PO ×2 (09:15→21:11)
[2022-11-11] MEDS: spironolactone 25 mg Tablet 75 MG PO (09:15)
[2022-11-11 09:21] LABS: Lithium 0.4 mmol/L (0.6-1.2)
[2022-11-11] MEDS: lithium carbonate 300 mg Capsule 600 MG PO ×2 (11:45→17:56)
--- NOTE | 2022-11-11 12:23 | P.NPUPN_ITS ---
Subjective NPU Subjective: Patient presented today reporting that she was doing okay. She had her lithium level checked this morning which was 0.4 and we discussed the risks, benefits and alternatives of increasing her lithium to 600 mg p.o. twice daily and she understood and agreed to proceed as is documented in this note. She reported that she like the way the lithium is working but it was unclear whether it was accurate for her just wanting to discharge. Mental Status Exam MSE Comments: This is an overweight versus obese white female in hospital scrubs with adequate grooming and limited eye contact. No abnormal movements except for psychomotor retardation. Cooperative with exam in mild distress. Speech was limited with some pauses and decreased rate and volume with limited prosody. Mood described as okay, affect less odd. Thought process organized. Thought content: Patient denied suicidal or homicidal ideation, there were no delusions reported but clear paranoid, bizarre and possibly hyperreligious delusions noted, she endorsed auditory hallucinations and seem to suggest this hallucinations at t imes. Attention and concentration were limited and memory was unreliable but never formally tested. Alert and oriented times person and place. Insight, judgment and impulse control are impaired. Vitals/I&O/Wt Last Vital Signs Temp 97.9 F 11/10/22 20:23 Pulse 123 H 11/11/22 06:00 Resp 18 11/11/22 06:00 BP 133/87 11/11/22 06:00 Pulse Ox 98 11/11/22 06:00 O2 Del Method Room Air 11/11/22 06:00 Data NPU 11/07/22 12:40 11/07/22 15:55 A&P Assessment and plan (1) Schizophrenia: (2) PTSD (post-traumatic stress disorder): Plan ?Patient is a 36-year-old female admitted with bizarre delusions currently endorsing limited compliance with her medication regimen that appears currently unable to manage her care safely and continues to require acute inpatient hospitalization 1.? ?Engage? patient in individual ,milieu, and group therapy ? 2. ? We will attempt to gather collateral information from previous providers and about how prevalent psychosis has been. 3. ? TO-15 minute checks on the unit. ? 4.? Recommend sober living treatment at the highest level of care to which the patient is willing to commit. 5. Continue Invega 9mg daily, continue spironolactone at 75mg daily. Patient given IM invega 234mg on 10/24/2022. Given Invega Sustenna 156 mg second loading dose 11/01/2022. Prn haldol for agitation. Continue Cogentin 1mg bid. 6. Need to consider second antipsychotic given the intense and fixed nature of her continuum delusions. Discussed the possibility of lithium or Depakote but need to get collateral information as it is unclear if her history is accurate. Started lithium 300 mg p.o. twice daily. Checked lithium level this morning and increased to 6 on milligrams p.o. twice daily. Involuntary Hold Information 96 Hour Hold: 96 Hour Involuntary Admission: No Attestations NPU Medical Necessity Statement*: Inpatient hospitalization is medically necessary and deemed to be the clinically appropriate intervention at this time. We will initiate medications as deemed medically necessary and adjust them accordingly. The patient's likely length of stay is 4-7 days. Coding Level of Care Code Acute Code for [facility] Diagnoses Schizophrenia F20.9 PTSD (post-traumatic stress disorder) F43.10
[2022-11-11 14:00] VITALS: BP 116/78; PULSE 94; RESP 17; TEMP 36.4; O2SAT 96
[2022-11-11 20:06] VITALS: BP 134/81; PULSE 121; RESP 20; TEMP 36.7; O2SAT 97
[2022-11-12 06:00] VITALS: BP 138/96; PULSE 112; RESP 20; O2SAT 97
[2022-11-12] MEDS: benztropine 1 mg Tablet PO ×2 (09:24→20:01)
[2022-11-12] MEDS: spironolactone 25 mg Tablet 75 MG PO (09:24)
[2022-11-12] MEDS: lithium carbonate 300 mg Capsule 600 MG PO ×2 (09:24→17:27)
[2022-11-12] MEDS: paliperidone ER 3 mg Tablet 9 MG PO (09:24)
--- NOTE | 2022-11-12 13:35 | P.NPUPN_ITS ---
Subjective NPU Subjective: Patient presented today reporting that she is feeling okay. She continues to have significant isolation but is spending more time in the break room. She reports that she is tolerating the lithium well and denies any difficulties with it. She continues to have fixed delusions. Mental Status Exam MSE Comments: This is an overweight versus obese white female in hospital scrubs with adequate grooming and limited eye contact. No abnormal movements except for psychomotor retardation. Cooperative with exam in mild distress. Speech was limited with some pauses and decreased rate and volume with limited prosody. Mood described as okay, affect less odd. Thought process organized. Thought content: Patient denied suicidal or homicidal ideation, there were no delusions reported but clear paranoid, bizarre and possibly hyperreligious delusions noted, she endorsed auditory hallucinations and seem to suggest this hallucinations at times. Attention and concentration were limited and memory was unreliable but never formally tested. Alert and oriented times person and place. Insight, ju dgment and impulse control are impaired. Vitals/I&O/Wt Last Vital Signs Temp 98.1 F 11/11/22 20:06 Pulse 112 H 11/12/22 06:00 Resp 20 H 11/12/22 06:00 BP 138/96 11/12/22 06:00 Pulse Ox 97 11/12/22 06:00 O2 Del Method Room Air 11/12/22 06:00 Data NPU 11/07/22 12:40 11/07/22 15:55 A&P Assessment and plan (1) Schizophrenia: (2) PTSD (post-traumatic stress disorder): Plan ?Patient is a 36-year-old female admitted with bizarre delusions currently endorsing limited compliance with her medication regimen that appears currently unable to manage her care safely and continues to require acute inpatient hospitalization 1.? ?Engage? patient in individual ,milieu, and group therapy ? 2. ? We will attempt to gather collateral information from previous providers and about how prevalent psychosis has been. 3. ? TO-15 minute checks on the unit. ? 4.? Recommend sober living treatment at the highest level of care to which the patient is willing to commit. 5. Continue Invega 9mg daily, continue spironolactone at 75mg daily. Patient given IM invega 234mg on 10/24/2022. Given Invega Sustenna 156 mg second loading dose 11/01/2022. Prn haldol for agitation. Continue Cogentin 1mg bid. 6. Need to consider second antipsychotic given the intense and fixed nature of her continuum delusions. Discussed the possibility of lithium or Depakote but need to get collateral information as it is unclear if her history is accurate. Started lithium 300 mg p.o. twice daily. Checked lithium level this morning and increased to 600 milligrams p.o. twice daily. Involuntary Hold Information 96 Hour Hold: 96 Hour Involuntary Admission: No Attestations NPU Medical Necessity Statement*: Inpatient hospitalization is medically necessary and deemed to be the clinically appropriate intervention at this time. We will initiate medications as deemed medically necessary and adjust them accordingly. The patient's likely length of stay is 4-7 days. Coding Level of Care Code Acute Code for [facility] Fwd Diagnoses Schizophrenia F20.9 PTSD (post-traumatic stress disorder) F43.10
[2022-11-12 13:54] VITALS: BP 135/86; PULSE 134; RESP 18; TEMP 36.5; O2SAT 97
[2022-11-12] MEDS: nicotine 4 mg lozenge MUCOUS MEM (17:29)
[2022-11-12 20:12] VITALS: BP 147/94; PULSE 125; RESP 20; TEMP 36.5; O2SAT 97
[2022-11-13 06:00] VITALS: BP 133/89; PULSE 134; RESP 20; O2SAT 97
[2022-11-13 07:03] LABS: Methylmalonic Acid 334 nmol/L (87-318)
--- NOTE | 2022-11-13 07:19 | W.PM.NPUPNS ---
Subjective NPU Subjective: Presented today reporting that she is doing okay. We briefly discussed the fact that her labs were suggestive of possibility of B12 deficiency. We discussed the risks benefits and alternatives of obtaining hospitalist consult to look at things altogether and she understood and agreed to proceed as is documented in this note. Mental Status Exam MSE Comments: This is an overweight versus obese white female in hospital scrubs with adequate grooming and limited eye contact. No abnormal movements except for psychomotor retardation. Cooperative with exam in mild distress. Speech was limited with some pauses and decreased rate and volume with limited prosody. Mood described as okay, affect less odd. Thought process organized. Thought content: Patient denied suicidal or homicidal ideation, there were no delusions reported but clear paranoid, bizarre and possibly hyperreligious delusions noted, she endorsed auditory hallucinations and seem to suggest this hallucinations at times. Attention and concentration were limited and memory was unreliable but never formally tested. Alert and oriented times person and place. Insight, judgment and impulse control are impaired. Vitals/I&O/Wt Last Vital Signs Temp 97.7 F 11/12/22 20:12 Pulse 134 H 11/13/22 06:00 Resp 20 H 11/13/22 06:00 BP 133/89 11/13/22 06:00 Pulse Ox 97 11/13/22 06:00 O2 Del Method Room Air 11/13/22 06:00 Data NPU 11/07/22 12:40 11/07/22 15:55 A&P Assessment and plan (1) Schizophrenia: (2) PTSD (post-traumatic stress disorder): Plan ?Patient is a 36-year-old female admitted with bizarre delusions currently endorsing limited compliance with her medication regimen that appears currently unable to manage her care safely and continues to require acute inpatient hospitalization 1.? ?Engage? patient in individual ,milieu, and group therapy ? 2. ? We will attempt to gather collateral information from previous providers and about how prevalent psychosis has been. 3. ? TO-15 minute checks on the unit. ? 4.? Recommend sober living treatment at the highest level of care to which the patient is willing to commit. 5. Continue Invega 9mg daily, continue spironolactone at 75mg daily. Patient given IM invega 234mg on 10/24/2022. Given Invega Sustenna 156 mg second loading dose 11/01/2022. Prn haldol for agitation. Continue Cogentin 1mg bid. 6. Need to consider second antipsychotic given the intense and fixed nature of her continuum delusions. Discussed the possibility of lithium or Depakote but need to get collateral information as it is unclear if her history is accurate. Started lithium 300 mg p.o. twice daily. Checked lithium level this morning and increased to 600 milligrams p.o. twice daily. 7. Obtain hospitalist consult for elevated pulse and abnormal lab findings. Involuntary Hold Information 96 Hour Hold: 96 Hour Involuntary Admission: No Attestations NPU Medical Necessity Statement*: Inpatient hospitalization is medically necessary and deemed to be the clinically appropriate intervention at this time. We will initiate medications as deemed medically necessary and adjust them accordingly. The patient's likely length of stay is 4-7 days. Coding Level of Care Code Acute Code for g Fwd Diagnoses Schizophrenia F20.9 PTSD (post-traumatic stress disorder) F43.10
[2022-11-13] MEDS: nicotine 4 mg lozenge MUCOUS MEM (08:29)
[2022-11-13] MEDS: paliperidone ER 3 mg Tablet 9 MG PO (08:30)
[2022-11-13] MEDS: benztropine 1 mg Tablet PO ×2 (08:30→20:49)
[2022-11-13] MEDS: lithium carbonate 300 mg Capsule 600 MG PO ×2 (08:30→18:19)
[2022-11-13] MEDS: spironolactone 25 mg Tablet 75 MG PO (08:30)
[2022-11-13 09:03] VITALS: BP 139/88; PULSE 94; RESP 16; O2SAT 97
--- NOTE | 2022-11-13 11:29 | CTR_ITS ---
PROCEDURE INFORMATION: Exam: CT Head Without Contrast Exam date and time: 11/13/2022 12:11 PM Age: 37 years old Clinical indication: Altered mental status/memory loss; Additional info: AMS TECHNIQUE: Imaging protocol: Computed tomography of the head without contrast. Radiation optimization: All CT scans at this facility use at least one of these dose optimization techniques: automated exposure control; mA and/or kV adjustment per patient size (includes targeted exams where dose is matched to clinical indication); or iterative reconstruction. REPORTING DATA: Count of CT and Cardiac NM exams in prior 12 months: This patient has received 0 known CTs and 0 known cardiac nuclear medicine studies in the 12 months prior to the current study. COMPARISON: No relevant prior studies available. RADIATION DOSE METRICS: Total DLP (mGy-cm): 1125.15 FINDINGS: Brain: Normal. No hemorrhage. Unremarkable white matter. No mass effect. Cerebral ventricles: No ventriculomegaly. Paranasal sinuses: [id number] patchy opacification of the ethmoid air cells and maxillary sinuses. Mastoid air cells: Visualized mastoid air cells are well aerated. Bones/joints: Unremarkable. No acute fracture. Soft tissues: Unremarkable. CT/CT head wo con* [id number] IMPRESSION: No acute intracranial findings.
--- NOTE | 2022-11-13 11:31 | P.CONIM_ITS ---
Providers/Reason For Consult Consulting Physician/Specialty*: Psychiatry Reason for Consult*: Altered mental status Attending Physician: Fredis Hays MD History of Present Illness History of Present Illness Xiomara Zamora is a 37 year old female with a past medical history of PTSD, schizophrenia, currently admitted at the neuropsychiatric unit, hospitalist team was consulted, due to alteration of her mentation, she has been having increased episodes of not being her usual self, patient was examined she has a flat affect, she actually she has her mouth open, and she is actively drooling, sitting up in the chair she was able to walk into the rec room by herself, she tells me that she is originally from [place], she is a housewife, she has 2 kids, Lorelei and her son, 5 and 12, her is a welder production line arc, she is not sure why she is here, she is wondering when she can go home, she tells me that she has had a cholecystectomy, appendectomy, does report smoking cigarettes, does report previous marijuana use, no IV drug use, no alcohol use, no significant medical history, denies any headache, no blurry vision, no nausea, no vomiting, no abdominal pain, no chest pain, she is tachycardic on examination heart rates are in the 110s, sinus rhythm, denies any chest pain, no lightheadedness, dizziness, no fevers, no chills, she is tremulous on examination, diffusely, she does have a mild resting tremor in both upper extremities, he has no complaint denies a history of strokes, no history of CAD, no history of diabetes, she does have B12 deficiency Review of Systems Const: Denies: fever(s) or chills Eyes: Denies: change in vision Card: Denies: chest pain Resp: Denies: dyspnea GI: Denies: abdominal pain Neuro: Denies: headache(s), numbness in extremities, weakness in extremities, lack of coordination, difficulty walking, frequent falls, dizziness, vertigo, confusion, behavioral changes, Slurred speech present, difficulty communicating thoughts, seizure-like activity or involuntary movements Medications/Allergies Home Medications Medication Instructions Recorded Confirmed Last Taken Type No Known Home Medications 10/20/22 10/20/22 Unknown History Allergies Allergy/AdvReac Type Severity Reaction Status Date / Time No Known Allergies Allergy Verified 10/17/22 13:39 Current Medications Generic Name Dose Route Start Last Admin Trade Name Freq PRN Reason Stop Dose Admin Benztropine Mesylate 1 mg 10/27/22 21:00 11/13/22 08:30 Benztropine 1 Mg Tablet PO 1 mg 0900,2100 SKYLAR Administration Diphenhydramine HCl 50 mg 10/17/22 11:30 10/21/22 08:15 Diphenhydramine 50 Mg/Ml Sdv 1ml IM 50 mg Q4H PRN Administration Severe Aggression Haloperidol 5 mg 10/17/22 11:30 10/23/22 12:19 Haloperidol 5 Mg Tablet PO 5 mg Q4H PRN Administration AGITATION Haloperidol Lactate 5 mg 10/17/22 11:30 10/21/22 08:15 Haloperidol Inj 5 Mg/Ml Inj 1 Ml IM 5 mg Q4H PRN Administration Severe Aggression Hydroxyzine Pamoate 50 mg 10/17/22 11:30 10/25/22 12:33 Hydroxyzine 25 Mg Capsule PO 50 mg Q6H PRN Administration ANXIETY [place]ach Carbonate 600 mg 11/11/22 18:00 11/13/22 08:30 [place]arrach Carbonate 300 Mg Capsule PO 600 mg BID SKYLAR Administration Nicotine 1 patch 10/17/22 11:30 10/22/22 07:47 Nicotine 21 Mg Patch TRANSDERMA 1 patch DAILY PRN Administration NICOTINE WITHDRAWAL Nicotine Polacrilex 2 mg 10/17/22 11:30 10/29/22 11:46 Nicotine 2 Mg Gum BUCCAL 2 mg Q2H PRN Administration NICOTINE WITHDRAWAL Nicotine Polacrilex 4 mg 10/18/22 23:35 11/13/22 08:29 Nicotine 4 Mg Lozenge MUCOUS MEM 4 mg Q2H PRN Administration NICOTINE CRAVINGS Olanzapine 5 mg 10/17/22 11:30 10/23/22 09:53 Olanzapine 5 Mg Odt PO 5 mg Q4H PRN Administration Agitation/Psychosis Paliperidone 9 mg 10/24/22 09:00 11/13/22 08:30 Paliperidone Er 3 Mg Tablet PO 9 mg DAILY SKYLAR Administration Spironolactone 75 mg 10/20/22 09:00 11/13/22 08:30 Spironolactone 25 Mg Tablet PO 75 mg DAILY SKYLAR Administration Trazodone HCl 50 mg 11/07/22 21:00 11/09/22 00:35 Trazodone 50 Mg Tablet PO 50 mg BEDTIME PRN Administration sleep PFSH Acute PFSH: Medical History (Updated 11/13/22 @ 11:47 by Dustin Mas MD) No pertinent past medical history Surgical History (Updated 11/13/22 @ 11:44 by Dustin Mas MD) History of appendectomy History of cholecystectomy Family History (Updated 11/13/22 @ 11:45 by Dustin Mas MD) Other No pertinent family history Social History (Updated 11/13/22 @ 11:44 by Dustin Mas MD) Smoking and tobacco status: current every day smoker Alcohol intake: never Substance/Drug Use: former Female Reproductive History: Date of last menstrual period: 10/17/22 Vitals/I&O/Wt Last Vital Signs Temp 97.7 F 11/12/22 20:12 Pulse 94 11/13/22 09:03 Resp 16 11/13/22 09:03 BP 139/88 11/13/22 09:03 Pulse Ox 97 11/13/22 09:03 O2 Del Method Room Air 11/13/22 06:00 Physical Exam Const: COMMON NORMALS: no acute distress EXAM LIMITATIONS: altered mental status ORIENTATION/CONSCIOUSNESS: Yes awake, Yes oriented to person, Yes oriented to place and Yes confused; not oriented to time Eye: COMMON NORMALS: Equal, round and reactive pupils present and EOMs intact bilaterally PUPIL: Yes Equal, round and reactive pupils present Neck/C-Spine: COMMON NORMALS: full ROM, no lymphadenopathy and no meningeal signs Lymph: LYMPHATIC: no lymphadenopathy noted Resp: COMMON NORMALS: normal respiratory effort, No retractions, No use of accessory muscles and clear to auscultation bilaterally AUSCULTATION: clear to auscultation bilaterally Cardio: COMMON NORMALS: regular rate, regular rhythm, S1 normal heart sound present and S2 normal heart sound present RATE: regular rate RHYTHM: regular rhythm HEART SOUNDS: S1 normal heart sound present and S2 normal heart sound present GI: COMMON NORMALS: Normal to inspection, nondistended, normoactive bowel sounds present and non-tender Extremity: COMMON NORMALS: no pedal edema Neuro: COMMON NORMALS: CN's II-XII intact bilaterally, moves all extremities, no focal motor deficits and no sensory deficits noted SENSORIUM/ORIENTATION: Yes oriented to person, Yes oriented to place and No oriented to time MENINGEAL SIGNS: Yes no meningeal signs Psych: OTHER: Patient has delayed responses Data 11/07/22 12:40 11/07/22 15:55 A&P Assessment and plan (1) Altered mental status: (2) B12 deficiency: Plan Altered mental status -We will do work-up, he is tachycardic, EKG, CBC, CMP, mag, repeat TSH -CT of the head -Patient's altered mental status could be from B12 deficiency, due to concerns for acute change in her mentation, I am going to start her on I am going to start her on IM cyanocobalamin once daily for at least a week or until her mentation improves -We will continue to monitor, Consult Attestations Medical Necessity Statement: Patient requires hospitalization for altered mental status, B12 deficiency Diagnoses Altered mental status R41.82 B12 deficiency E53.8
[2022-11-13] MEDS: cyanocobalamin 1,000 mcg/mL SDV 1000 MCG IM (12:00)
[2022-11-13] MEDS: thiamine 100 mg Tablet PO (12:00)
[2022-11-13 12:14] LABS: Basophils % 0.1 %; Eosinophils % 0.3 %; Hematocrit 38.5 % (37.0-47.0); Hemoglobin 13.3 g/dL (11.5-15.3); Lymphocytes # 1.3 10^3/uL (0.8-4.8); Lymphocytes % 16.9 %; Mean Corpuscular HGB Conc 34.5 g/dL (30.0-36.0); Mean Corpuscular Hemoglobin 31.5 pg (28.0-34.0); Mean Corpuscular Volume 91.2 fl (81-99); Mean Platelet Volume 9.5 fL (7.4-10.4); Monocytes # 0.6 10^3/uL (0.2-0.9); Monocytes % 7.4 %; Neutrophils # 5.68 10^3/uL (1.8-7.7); Nucleated Red Blood Cells % 0 %; Platelet Count 292 10^3/cmm (130-400); Red Blood Count 4.22 10^6/uL (4.1-5.3); Red Cell Distribution Width 11.9 % (12.1-15.1); White Blood Count 7.6 10^3/uL (4.0-10.0)
[2022-11-13 12:19] LABS: Erythrocyte Sedimentation Rate 9 mm/hr (0-15)
[2022-11-13 12:22] LABS: Ammonia 20 umol/L (11-51)
[2022-11-13 12:43] LABS: Troponin(5th) Baseline 7 ng/L (0-10)
[2022-11-13 12:44] LABS: HCG, Serum Qual Negative (Negative)
[2022-11-13 12:51] LABS: Alanine Aminotransferase 9 U/L (0-33); Albumin Level 4.6 g/dL (3.5-5.2); Alkaline Phosphatase 58 U/L (35-105); Anion Gap 16.1 (5-19); Aspartate Amino Transferase 12 U/L (0-32); Blood Urea Nitrogen 5 mg/dL (6-20); Calcium 10.1 mg/dL (8.5-10.5); Carbon Dioxide 24 mmol/L (22-29); Chloride 94 mmol/L (98-107); Globulin 2.3 g/dL (1.3-4.6); Glomerular Filtration Rate 111.9 mL/min (90-130); Glucose 114 mg/dL (65-115); Magnesium 1.8 mg/dL (1.7-2.3); Osmolality Calculated 268 mOsm/kg (285-295); Potassium 4.1 mmol/L (3.5-5.1); Sodium 130 mmol/L (136-145); Total Bilirubin 0.5 mg/dL (0.15-1.2); Total Protein 6.9 g/dL (6.6-8.7)
[2022-11-13 12:59] LABS: Estmated Average Glucose 94; Hemoglobin A1C 4.9 % (4.0-6.0)
[2022-11-13 13:53] LABS: Thyroid Stimulating Hormone 3.17 uIU/mL (0.27-4.20)
[2022-11-13 14:00] VITALS: BP 154/96; PULSE 120; RESP 18; TEMP 36.5; O2SAT 96
[2022-11-13 14:54] LABS: Troponin 5 2HR 6.66 ng/L (0-10)
--- NOTE | 2022-11-13 14:58 | ECG_ITS ---
[facility] Test Date: 2022-11-13 Pat Name: Xiomara Zamora Department: Room: 128 Gender: Female Strategic Planning Manager: : 1985 Requested By: Dustin Mas Order Number: [id number] Dennys MD: Alex Miller M.D. Measurements Intervals [place] Rate: 117 P: 54 TN: 132 QRS: 51 QRSD: 83 T: 45 QT: 323 QTc: 451 Interpretive Statements SINUS TACHYCARDIA WITH OCCASIONAL VENTRICULAR PREMATURE COMPLEXES POSSIBLE LEFT ATRIAL ENLARGEMENT [-0.1mV P-WAVE IN V1/V2] ABNORMAL RHYTHM ECG No previous ECG available for comparison Electronically Signed On 11-15-2022 8:37:43 CDT by Alex Miller M.D. [id number]
[2022-11-13 15:30] LABS: Troponin 5 2HR Delta -0.34 ABS# (0-10)
[2022-11-13 19:22] LABS: Troponin 5 6HR 10.76 ng/L (0-10)
[2022-11-13 19:23] LABS: Troponin 5 6HR Delta 3.76 ng/L (0-12)
[2022-11-13 19:29] VITALS: BP 121/85; PULSE 16; RESP 16; TEMP 36.9; O2SAT 98
[2022-11-14 02:51] LABS: Glucose Point of Care 127 mg/dL (70-110)
[2022-11-14 02:54] VITALS: BP 122/71; PULSE 110; RESP 18; TEMP 37; O2SAT 95
[2022-11-14 06:00] VITALS: RESP 16
--- NOTE | 2022-11-14 07:59 | ECG_ITS ---
[facility] Test Date: 2022-11-14 Pat Name: Xiomara Zamora Department: Room: 128 Gender: Female Services Executive: : 1985 Requested By: Dustin Mas Order Number: [id number] Dennys MD: Alex Miller M.D. Measurements Intervals [place] Rate: 98 P: 51 [place]: 156 QRS: 24 QRSD: 81 T: 9 QT: 337 QTc: 430 Interpretive Statements SINUS RHYTHM WITH OCCASIONAL VENTRICULAR PREMATURE COMPLEXES Compared to ECG 11/13/2022 14:58:26 Sinus tachycardia no longer present Electronically Signed On 11-15-2022 8:32:11 CDT by Alex Miller M.D. [id number]
[2022-11-14] MEDS: spironolactone 25 mg Tablet 75 MG PO (08:00)
[2022-11-14] MEDS: paliperidone ER 3 mg Tablet 9 MG PO (08:00)
[2022-11-14] MEDS: thiamine 100 mg Tablet PO (08:00)
[2022-11-14] MEDS: benztropine 1 mg Tablet PO ×2 (08:00→20:43)
[2022-11-14] MEDS: lithium carbonate 300 mg Capsule 600 MG PO ×2 (08:00→17:32)
[2022-11-14] MEDS: cyanocobalamin 1,000 mcg/mL SDV 1000 MCG IM (08:09)
[2022-11-14 08:43] LABS: Basophils % 0.1 %; Eosinophils % 0.5 %; Hematocrit 40.4 % (37.0-47.0); Hemoglobin 13.4 g/dL (11.5-15.3); Lymphocytes # 1.2 10^3/uL (0.8-4.8); Lymphocytes % 14.5 %; Mean Corpuscular HGB Conc 33.2 g/dL (30.0-36.0); Mean Corpuscular Volume 93.5 fl (81-99); Mean Platelet Volume 9.5 fL (7.4-10.4); Monocytes # 0.5 10^3/uL (0.2-0.9); Neutrophils # 6.41 10^3/uL (1.8-7.7); Neutrophils % 78.7 %; Nucleated Red Blood Cells % 0 %; Platelet Count 283 10^3/cmm (130-400); Red Blood Count 4.32 10^6/uL (4.1-5.3); Red Cell Distribution Width 11.9 % (12.1-15.1); White Blood Count 8.2 10^3/uL (4.0-10.0)
[2022-11-14 09:24] LABS: Anion Gap 20.1 (5-19); Blood Urea Nitrogen 5 mg/dL (6-20); Calcium 9.9 mg/dL (8.5-10.5); Carbon Dioxide 21 mmol/L (22-29); Chloride 99 mmol/L (98-107); Glomerular Filtration Rate 93.6 mL/min (90-130); Glucose 133 mg/dL (65-115); Osmolality Calculated 281 mOsm/kg (285-295); Potassium 4.1 mmol/L (3.5-5.1); Sodium 136 mmol/L (136-145)
[2022-11-14 09:30] LABS: Procalcitonin 0.02 ng/mL (0-0.5)
[2022-11-14 13:53] VITALS: BP 95/64; PULSE 121; RESP 17; TEMP 36.8; O2SAT 97
--- NOTE | 2022-11-14 14:19 | W.PM.NPUPNS ---
Subjective NPU Subjective: Patient is a 37-year-old white female with a history of schizophrenia admitted with active psychosis including bizarre delusions and paranoia. The patient appeared to show some evidence of bizarre posturing while on the unit. She had informed the short story writer of this note that she had been told that she has B12 deficiency. B12 deficiency has been confirmed and the patient has been receiving daily intramuscular treatment with B12. She had continued to appear confused and appeared somewhat lethargic on the unit but was compliant with her medication regimen. She continued to report that she was fine and reported that she had her children part-time although her had reported that the patient did not have children of her own. Mental Status Exam MSE Comments: This is an overweight versus obese white female in hospital scrubs with adequate grooming and limited eye contact. No abnormal movements except for psychomotor retardation. Cooperative with exam in mild distress. Speech was limited with some pauses and decreased rate and volume with limited prosody. Mood described as good. Affect remained subdued. Thought process: Superficial but organized. Thought content: Patient denied suicidal or homicidal ideation, she continued her appear at times guarded and continued to endorse some belief of having children despite there being no evidence of her having children. She did not appear to be responding to internal stimuli. Attention and concentration were limited and memory was unreliable but never formally tested. She was alert and oriented times person and place. Insight, judgment and impulse control are impaired. Vitals/I&O/Wt Last Vital Signs Temp 98.3 F 11/14/22 13:53 Pulse 121 H 11/14/22 13:53 Resp 17 11/14/22 13:53 BP 95/64 11/14/22 13:53 Pulse Ox 97 11/14/22 13:53 O2 Del Method Room Air 11/13/22 06:00 11/13/22 11/14/22 11/14/22 22:59 06:59 14:59 Intake Total 0 / 0 Balance 0 / 0 Weight last 48 hrs Weight 87.453 kg Weight 87.453 kg Data NPU 11/14/22 08:26 11/14/22 08:26 A&P Assessment and plan (1) Schizophrenia: (2) PTSD (post-traumatic stress disorder): Plan ?Patient is a 36-year-old female admitted with bizarre delusions currently endorsing limited compliance with her medication regimen that appears currently unable to manage her care safely and continues to require acute inpatient hospitalization 1.? ?Engage? patient in individual ,milieu, and group therapy ? 2. ? We will attempt to gather collateral information from previous providers and about how prevalent psychosis has been. 3. ? TO-15 minute checks on the unit. ? 4.? Recommend sober living treatment at the highest level of care to which the patient is willing to commit. 5. Increase Invega to 6 mg daily. Continue spironolactone at 75mg daily. Patient given IM invega 234mg on 10/24/2022. Given Invega Sustenna 156 mg second loading dose 11/01/2022. Prn haldol for agitation. Continue Cogentin 1mg bid. 6. Need to consider second antipsychotic given the intense and fixed nature of her continuum delusions. Continue [place] 600mg bid. [place] level on 11/17/2022. Involuntary Hold Information 96 Hour Hold: 96 Hour Involuntary Admission: No Attestations NPU Medical Necessity Statement*: Inpatient hospitalization is medically necessary and deemed to be the clinically appropriate intervention at this time. We will initiate medications as deemed medically necessary and adjust them accordingly. The patient's likely length of stay is 5-10 days. Coding Level of Care Code Acute Code for [facility] Fwd Diagnoses Schizophrenia F20.9 PTSD (post-traumatic stress disorder) F43.10
--- NOTE | 2022-11-14 15:41 | P.PN_ITS ---
Subjective Subjective: Patient was seen this morning, nursing staff tell me that she is much more alert awake, she is alert to person, to place, to time she follows commands, her tremor has resolved, some of her blank stare has resolved, she has no complaints no headache, blurry vision, cranial nerves II to XII grossly intact, she does have mild cerebellar signs, bilaterally, anger to nose is abnormal bilaterally, very mild saccadic eye movements, bilaterally, she is able to ambulate without any significant symptomatology, no focal weakness, no paresthesias reported, I did some further history taking and again I confronted her story about her children, and she again tells me her children's names, I even asked her if she her children have any friends and she was able to come up with Charlene and Tello as names, I further pressed her and I asked her how she met them and she is not exactly sure how but there children at her kids school, I am not sure if her making up the story is because of her underlying psychiatric disorder, but it could be confabulation from possible Warnicke's encephalopathy however she denies any alcoholism, nonetheless I placed her on thiamine, we discussed continuing daily IM vitamin B12 and she is agreeable, until at least she is asymptomatic neurologically her symptomatology is back to her baseline, then she can either do vitamin B12 injections once weekly or p.o. Vitals/I&O/Wt Last Vital Signs Temp 98.3 F 11/14/22 13:53 Pulse 121 H 11/14/22 13:53 Resp 17 11/14/22 13:53 BP 95/64 11/14/22 13:53 Pulse Ox 97 11/14/22 13:53 O2 Del Method Room Air 11/13/22 06:00 Weight last 48 hrs Weight 87.453 kg Weight 87.453 kg Physical Exam Const: COMMON NORMALS: no acute distress and patient oriented x3 Resp: COMMON NORMALS: normal respiratory effort, No retractions, No use of accessory muscles and clear to auscultation bilaterally AUSCULTATION: clear to auscultation bilaterally Cardio: COMMON NORMALS: regular rate, regular rhythm, S1 normal heart sound present and S2 normal heart sound present RATE: regular rate RHYTHM: regular rhythm HEART SOUNDS: S1 normal heart sound present and S2 normal heart sound present GI: COMMON NORMALS: Normal to inspection, nondistended, normoactive bowel chinyere nds present, non-tender and no bruits Extremity: COMMON NORMALS: no pedal edema Neuro: COMMON NORMALS: patient oriented x3, CN's II-XII intact bilaterally, moves all extremities, no focal motor deficits, no sensory deficits noted and gait normal Psych: COMMON NORMALS: mental status grossly normal Data 11/14/22 08:26 11/14/22 08:26 A&P Assessment and plan (1) Altered mental status: (2) B12 deficiency: Plan Altered mental status -Hyponatremia is resolved -Possible confabulation related to Warnicke's encephalopathy? Although she denies any alcoholism, still continue thiamine -Patient's altered mental status could be from B12 deficiency, due to concerns for acute change in her mentation, I am going to continue her on IM cyanocobalamin once daily for at least a week or until her mentation is back to baseline, which ever comes first, and then she can be switched over to p.o. cyanocobalamin -We will continue to monitor, Attestations Medical Necessity Statement*: patient requires hospitalization for b12 defeciency, ams Diagnoses Altered mental status R41.82 B12 deficiency E53.8
--- NOTE | 2022-11-14 21:26 | PC.NURSE ---
PT CAME OUT OF THE SHOWER AND WAS NOTED TO BE WITH A FLAT AFFECT, MOUTH OPEN AND ACTIVELY DROOLING. BLANK STARE. PT IS ALERT AND ORIENTED TO PERSON, DATE AND YEAR. PT IS NOTABLY TREMULOUS BOTH STANDING AND SITTING, WEAK WHEN STANDING STILL. PT IS ABLE TO SQUEEZE NURSES 2 FINGERS WITH BOTH HANDS, ABLE TO PUSH AND PULL WITH BOTH LEGS. PT IS ABLE TO TRACK A FINGER WITH BOTH EYES. PT STATES MY MUSCLES FEEL TIRED. VITAL SIGNS ARE FOLLOWS: T 97.7, HR 158, R 18, BP 105/68, SPO2 100%. NO COMPLAINS OF NAUSEA, LIGHT HEADEDNESS, HEADACHE, FEVER, OR CHILLS. PT IS BEING FOLLOWED BY A HOSPITALIST. WILL CONTINUE TO MONITOR CLOSELY.
[2022-11-14 21:56] VITALS: BP 105/76; PULSE 158; RESP 18; TEMP 36.5; O2SAT 100
[2022-11-14 22:37] VITALS: BP 138/81; PULSE 121
--- NOTE | 2022-11-14 22:40 | PC.NURSE ---
PT NOTED TO BE RESTING QUIETLY AT THIS TIME. PT NOTED TO STILL BE TREMULOUS. BP NOW 138/81, P 121. PT CONTINUES TO DENY CHILLS, PAIN OR NAUSEA. CONTINUING TO MONITOR.
[2022-11-15 06:00] VITALS: BP 123/87; PULSE 114; RESP 18; TEMP 37; O2SAT 98
[2022-11-15] MEDS: thiamine 100 mg Tablet PO (08:08)
[2022-11-15] MEDS: paliperidone ER 6 mg Tablet PO (08:08)
[2022-11-15] MEDS: spironolactone 25 mg Tablet 75 MG PO (08:08)
[2022-11-15] MEDS: lithium carbonate 300 mg Capsule 600 MG PO ×2 (08:08→18:04)
[2022-11-15] MEDS: benztropine 1 mg Tablet PO ×2 (08:10→20:34)
[2022-11-15] MEDS: cyanocobalamin 1,000 mcg/mL SDV 1000 MCG IM (08:10)
[2022-11-15 14:00] VITALS: BP 128/85; PULSE 141; RESP 18; TEMP 36.5; O2SAT 96
[2022-11-15 15:35] LABS: Urine Color Straw (Yellow)
[2022-11-15 15:36] LABS: Add Urine Microscopic? YES; Bacteria Urine 1+ /hpf; Bilirubin Urine Neg (Negative); Blood Urine Neg (Negative); Glucose Urine UA Norm (Normal); Ketones Urine Negative (Negative); Leukocyte Esterase Urine Trace (Negative); Nitrate Urine Negative (Negative); Protein Urine Neg (Negative); Specific Gravity, Urine 1.015 (1.005-1.030); Squamous Epithelial Cell Urine RARE /hpf (0-5); Sulfosalicylic Acid Urine Negative (Negative); Urine Appearance Clear (CLEAR); Urobilinogen Urine Norm (Negative); WBC Urine 0-4 /hpf (0-5); pH Urine 8 (5-7)
[2022-11-15 15:37] LABS: Add Urine Culture? No
--- NOTE | 2022-11-15 16:17 | P.NPUPN_ITS ---
Subjective NPU Subjective: Patient is a 37-year-old white female with a history of schizophrenia admitted with active psychosis including bizarre delusions and paranoia. The patient continued to isolate herself on the milieu. She had continued to endorse that she had kids to take care of when she left here. She had reported that she was able to recall that she was lying naked on the gravestone of her grandmother w hen she had come here to the hospital and stated that she was indeed the reincarnation of her great grandmother. She had reported that she had practiced her own rastafari. She had denied any hallucinations at this time. She continued to engage in some bizarre behaviors at times where she was appearing to light a cigarette but there was no cigarette present. She had continue to require prompting for completion of activities of daily living. Mental Status Exam MSE Comments: This is an overweight versus obese white female in hospital scrubs with adequate grooming and limited eye contact. No abnormal movements except for psychomotor retardation and a mild tremor in both hands. Cooperative with exam in mild distress. Speech was limited with some pauses and decreased rate and volume with limited prosody. Mood described as good. Affect remained subdued and mood incongruent. Thought process: Superficial but organized. Thought content: Patient denied suicidal or homicidal ideation, She remained guarded and continued to endorse some belief of having children despite there being no evid ence of her having children. She did not appear to be responding to internal stimuli. Attention and concentration were limited and memory was unreliable but never formally tested. She was alert and oriented times person and place. Insight, judgment and impulse control are impaired. Vitals/I&O/Wt Last Vital Signs Temp 97.7 F 11/15/22 14:00 Pulse 141 H 11/15/22 14:00 Resp 18 11/15/22 14:00 BP 128/85 11/15/22 14:00 Pulse Ox 96 11/15/22 14:00 O2 Del Method Room Air 11/15/22 14:00 Weight last 48 hrs Weight 87.453 kg Weight 87.453 kg Data NPU 11/14/22 08:26 11/14/22 08:26 A&P Assessment and plan (1) Schizophrenia: (2) PTSD (post-traumatic stress disorder): Plan ?Patient is a 36-year-old female admitted with bizarre delusions currently endorsing limited compliance with her medication regimen that appears currently unable to manage her care safely and continues to require acute inpatient hospitalization 1.? ?Engage? patient in individual ,milieu, and group therapy ? 2. ? We will attempt to gather collateral information from previous providers and about how prevalent psychosis has been. 3. ? TO-15 minute checks on the unit. ? 4.? Recommend sober living treatment at the highest level of care to which the patient is willing to commit. 5. Decrease Invega to 3 mg daily. Continue spironolactone at 75mg daily. Patient given IM invega 234mg on 10/24/2022. Given Invega Sustenna 156 mg second loading dose 11/01/2022. Prn haldol for agitation. Continue Cogentin 1mg bid. 6. Need to consider second antipsychotic given the intense and fixed nature of her continuum delusions. Continue [place] 600mg bid. [place] level on 11/17/2022. Involuntary Hold Information 96 Hour Hold: 96 Hour Involuntary Admission: No Attestations NPU Medical Necessity Statement*: Inpatient hospitalization is medically necessary and deemed to be the clinically appropriate intervention at this time. We will initiate medications as deemed medically necessary and adjust them accordingly. The patient's likely length of stay is 5-10 days. Coding Level of Care Code Acute Code for [facility] Diagnoses Schizophrenia F20.9 PTSD (post-traumatic stress disorder) F43.10
[2022-11-15 20:11] VITALS: BP 128/74; PULSE 102; RESP 16; TEMP 36.6; O2SAT 97
[2022-11-16 06:00] VITALS: BP 140/82; PULSE 102; RESP 18; O2SAT 94
[2022-11-16] MEDS: lithium carbonate 300 mg Capsule 600 MG PO ×2 (09:02→17:36)
[2022-11-16] MEDS: thiamine 100 mg Tablet PO (09:02)
[2022-11-16] MEDS: spironolactone 25 mg Tablet 75 MG PO (09:02)
[2022-11-16] MEDS: benztropine 1 mg Tablet PO ×2 (09:02→20:05)
[2022-11-16] MEDS: cyanocobalamin 1,000 mcg/mL SDV 1000 MCG IM (09:03)
[2022-11-16] MEDS: paliperidone ER 3 mg Tablet PO (09:03)
[2022-11-16 09:57] LABS: Anion Gap 16.8 (5-19); Carbon Dioxide 24 mmol/L (22-29); Chloride 98 mmol/L (98-107); Lithium 0.9 mmol/L (0.6-1.2); Potassium 3.8 mmol/L (3.5-5.1); Sodium 135 mmol/L (136-145)
[2022-11-16] MEDS: blistex lip oint 7 gm Tube 1 APPLIC TOPICAL (12:50)
[2022-11-16 14:00] VITALS: BP 132/81; PULSE 97; RESP 16; TEMP 36.6; O2SAT 98
[2022-11-16] MEDS: LORazepam 2 mg Tablet PO (14:29)
--- NOTE | 2022-11-16 14:59 | W.PM.NPUPNS ---
Subjective NPU Subjective: Patient is a 37-year-old white female with a history of schizophrenia admitted with active psychosis including bizarre delusions and paranoia. Patient's lithium level was found to be 0.9 which is in the optimal range. She continued to isolate herself on the milieu. She had been seen having shakes but showed no evidence of any clear extraparametal symptoms. She had continued to support her delusions and stated that she followed her own zoroastrian. She had stated that she was more hopeful about returning home. She had been compliant with receiving the treatments for her B12 deficiency through intramuscular shots. She had continued to report that she had been reincarnated from her great grandmother. She reported no current thoughts of hurting herself or others. Staff notes the patient appeared to have periods of odd posturing that was witnessed to last several seconds. She did not endorse any PTSD symptoms today. Mental Status Exam MSE Comments: This is an overweight versus obese white female in hospital scrubs with adequate grooming and limited eye contact. She had significant shaking in her lower and upper limbs with a clear intention tremor noted as well. Cooperative with exam in moderate distress. Speech was more productive today and more spontaneous. Mood described as good. Affect remained subdued and mood incongruent. Thought process: Superficial but organized. Thought content: Patient denied suicidal or homicidal ideation, She remained guarded and continued to endorse some belief of having children despite there being no evidence of her having children. She did not appear to be responding to internal stimuli. Attention and concentration were limited and memory was unreliable but never formally tested. She was alert and oriented times person and place. Insight, judgment and impulse control are impaired. No bizarre behavior was noted today other than brief moments of odd posturing. Vitals/I&O/Wt Last Vital Signs Temp 98 F 11/16/22 14:00 Pulse 97 11/16/22 14:00 Resp 16 11/16/22 14:00 BP 132/81 11/16/22 14:00 Pulse Ox 98 11/16/22 14:00 O2 Del Method Room Air 11/16/22 14:00 Data NPU 11/14/22 08:26 11/16/22 08:56 A&P Assessment and plan (1) Schizophrenia: (2) PTSD (post-traumatic stress disorder): Plan ?Patient is a 36-year-old female admitted with bizarre delusions currently endorsing limited compliance with her medication regimen that appears currently unable to manage her care safely and continues to require acute inpatient hospitalization 1.? ?Engage? patient in individual ,milieu, and group therapy ? 2. ? We will attempt to gather collateral information from previous providers and about how prevalent psychosis has been. 3. ? TO-15 minute checks on the unit. ? 4.? Recommend sober living treatment at the highest level of care to which the patient is willing to commit. 5. Discontinue oral invega today. Continue spironolactone at 75mg daily. Patient given IM invega 234mg on 10/24/2022. Given Invega Sustenna 156 mg second loading dose 11/01/2022. Prn haldol for agitation. Continue Cogentin 1mg bid. 6. Need to consider second antipsychotic given the intense and fixed nature of her continuum delusions. Reduce [place] 300mg tid given concern of drug interaction with spironolactone. Routine B12 IM given, 7. Trial of ativan 2mg one time today to target possible catatonia like symptoms. Involuntary Hold Information 96 Hour Hold: 96 Hour Involuntary Admission: No Attestations NPU Medical Necessity Statement*: Inpatient hospitalization is medically necessary and deemed to be the clinically appropriate intervention at this time. We will initiate medications as deemed medically necessary and adjust them accordingly. The patient's likely length of stay is 5-10 days. Coding Level of Care Code Acute Code for g Fwd Diagnoses Schizophrenia F20.9 PTSD (post-traumatic stress disorder) F43.10
[2022-11-16 20:43] VITALS: BP 118/80; PULSE 88; RESP 16; TEMP 36.6; O2SAT 96
[2022-11-17 06:00] VITALS: BP 144/67; PULSE 96; RESP 20; O2SAT 96
[2022-11-17] MEDS: lithium carbonate 300 mg Capsule PO (09:43)
[2022-11-17] MEDS: spironolactone 25 mg Tablet 75 MG PO (09:45)
[2022-11-17] MEDS: cyanocobalamin 1,000 mcg/mL SDV 1000 MCG IM (09:46)
[2022-11-17] MEDS: benztropine 1 mg Tablet PO ×4 (09:46→20:27)
[2022-11-17] MEDS: thiamine 100 mg Tablet PO (09:46)
[2022-11-17 14:00] VITALS: BP 116/74; PULSE 117; RESP 16; TEMP 36.6; O2SAT 95
--- NOTE | 2022-11-17 14:59 | P.NPUPN_ITS ---
Subjective NPU Subjective: Patient is a 37-year-old white female with a history of psychosis including bizarre delusions and paranoia. Patient appeared to have no improvement from a trial of Ativan 2 mg. She continued to appear somewhat lethargic and had significant shaking that was noted. She had remained in her room and was struggling with managing fine motor skills. She had been more communicative and engaged in more appropriate prosocial conversations she reported no thoughts of hurting herself or others. She had continued to report that she had had children that she needed to get home to despite there being no evidence of her having children. She had been able to sleep without issues. She reported that she had felt somewhat tired. Mental Status Exam MSE Comments: This is an overweight versus obese white female in hospital scrubs with adequate grooming and limited eye contact. There is continued evidence of shaking in her upper and lower limbs. Her gait showed steady shuffling of gait and there did appear to be some cogwheel rigidity on examination. She was cooperative with exam in moderate distress. Speech was normal in rate with increased spontaneity and productivity noted. Mood described as good. Affect remained subdued and mood incongruent. Thought process: Linear and more organized. Thought content: Patient denied suicidal or homicidal ideation. There was continued evidence of delusional thinking. Attention and concentration were limited and memory was unreliable but never formally tested. She was alert and oriented times person and place. Insight, judgment and impulse control are impaired. No posturing or catatonia was observed today. Vitals/I&O/Wt Last Vital Signs Temp 97.9 F 11/17/22 14:00 Pulse 117 H 11/17/22 14:00 Resp 16 11/17/22 14:00 BP 116/74 11/17/22 14:00 Pulse Ox 95 11/17/22 14:00 O2 Del Method Room Air 11/16/22 20:43 Data NPU 11/14/22 08:26 11/16/22 08:56 A&P Assessment and plan (1) Schizophrenia: (2) PTSD (post-traumatic stress disorder): Plan ?Patient is a 36-year-old female admitted with bizarre delusions currently endorsing limited compliance with her medication regimen that appears currently unable to manage her care safely and continues to require acute inpatient hospitalization 1.? ?Engage? patient in individual ,milieu, and group therapy ? 2. ? We will attempt to gather collateral information from previous providers and about how prevalent psychosis has been. 3. ? TO-15 minute checks on the unit. ? 4.? Recommend sober living treatment at the highest level of care to which the patient is willing to commit. 5. Continue spironolactone at 75mg daily. Patient given IM invega 234mg on 10/24/2022. Given Invega Sustenna 156 mg second loading dose 11/01/2022. Prn haldol for agitation. Increase Cogentin to 1 mg 3 times a day 6. Need to consider second antipsychotic given the intense and fixed nature of her continuum delusions. Reduce [place] 300mg tid given concern of drug interaction with spironolactone. Routine B12 IM given, Involuntary Hold Information 96 Hour Hold: 96 Hour Involuntary Admission: No Attestations NPU Medical Necessity Statement*: Inpatient hospitalization is medically necessary and deemed to be the clinically appropriate intervention at this time. We will initiate medications as deemed medically necessary and adjust them accordingly. The patient's likely length of stay is 5-7 days. Coding Level of Care Code Acute Code for [facility] Fwd Diagnoses Schizophrenia F20.9 PTSD (post-traumatic stress disorder) F43.10
[2022-11-17 20:19] VITALS: BP 132/82; PULSE 98; RESP 16; TEMP 36.5; O2SAT 96
[2022-11-17] MEDS: lithium carbonate 300 mg Capsule 600 MG PO (20:27)
[2022-11-17] MEDS: nicotine 4 mg lozenge MUCOUS MEM (20:27)
[2022-11-18 06:00] VITALS: BP 154/79; PULSE 117; RESP 20; O2SAT 96
[2022-11-18] MEDS: spironolactone 25 mg Tablet 75 MG PO (09:20)
[2022-11-18] MEDS: cyanocobalamin 1,000 mcg/mL SDV 1000 MCG IM (09:20)
[2022-11-18] MEDS: thiamine 100 mg Tablet PO (09:20)
[2022-11-18] MEDS: lithium carbonate 300 mg Capsule PO (09:20)
[2022-11-18] MEDS: benztropine 1 mg Tablet PO ×3 (09:20→20:48)
[2022-11-18 14:00] VITALS: BP 130/85; PULSE 124; RESP 17; TEMP 36.7; O2SAT 96
--- NOTE | 2022-11-18 16:22 | W.PM.NPUPNS ---
Subjective NPU Subjective: Patient is a 37-year-old white female with a history of psychosis including bizarre delusions and paranoia. Patient continues to show evidence of bizarre thinking. She had appeared isolative on the milieu with an inability to care for herself without some prompting for showering or bathing. She had continued to show evidence of some unusual posturing at this time. She had continued to have periods where she was shaking and struggled with completing activities of daily living such as brushing her teeth. She had reported adequate sleep. She had denied depressed mood at this time. Patient reported having some difficulties with her balance today. Patient had appeared at times unsteady but was able to attend groups. When walking Mental Status Exam MSE Comments: This is an overweight versus obese white female in hospital scrubs with poor grooming and limited eye contact. There is continued evidence of shaking in her upper and lower limbs. Her gait showed steady shuffling of gait and there did appear to be some cogwheel rigidity on examination. There was significant psychomotor retardation. She was cooperative with exam in moderate distress. Speech was less spontaneous today with diminished productivity as well. Mood described as good. Affect remained subdued and mood incongruent. Thought process: Linear and more organized. Thought content: Patient denied suicidal or homicidal ideation. There was continued evidence of delusional thinking. Attention and concentration were limited and memory was unreliable but never formally tested. She was alert and oriented times person and place. Insight, judgment and impulse control are impaired. Vitals/I&O/Wt Last Vital Signs Temp 98.0 F 11/18/22 14:00 Pulse 124 H 11/18/22 14:00 Resp 17 11/18/22 14:00 BP 130/85 11/18/22 14:00 Pulse Ox 96 11/18/22 14:00 O2 Del Method Room Air 11/18/22 06:00 Data NPU 11/14/22 08:26 11/16/22 08:56 A&P Assessment and plan (1) Schizophrenia: (2) PTSD (post-traumatic stress disorder): Plan ?Patient is a 36-year-old female admitted with bizarre delusions currently endorsing limited compliance with her medication regimen that appears currently unable to manage her care safely and continues to require acute inpatient hospitalization 1.? ?Engage? patient in individual ,milieu, and group therapy ? 2. ? We will attempt to gather collateral information from previous providers and about how prevalent psychosis has been. 3. ? TO-15 minute checks on the unit. ? 4.? Recommend sober living treatment at the highest level of care to which the patient is willing to commit. 5. Continue spironolactone at 75mg daily. Patient given IM invega 234mg on 10/24/2022. Given Invega Sustenna 156 mg second loading dose 11/01/2022. Prn haldol for agitation. Continue Cogentin to 1 mg 3 times a day 6. She continues to struggle with EPS including parkinsonian symptoms. We will initiate B6 100 mg daily to help with drug-induced parkinsonism. Continue B6 supplementation. Involuntary Hold Information 96 Hour Hold: 96 Hour Involuntary Admission: No Attestations NPU Medical Necessity Statement*: Inpatient hospitalization is medically necessary and deemed to be the clinically appropriate intervention at this time. We will initiate medications as deemed medically necessary and adjust them accordingly. The patient's likely length of stay is 7-9 days. Coding Level of Care Code Acute Code for [facility] Fwd Diagnoses Schizophrenia F20.9 PTSD (post-traumatic stress disorder) F43.10
[2022-11-18] MEDS: pyridoxine 50 mg Tablet PO (17:19)
[2022-11-18] MEDS: lithium carbonate 300 mg Capsule 600 MG PO (20:48)
[2022-11-18 20:57] VITALS: BP 123/74; PULSE 95; RESP 15; TEMP 36.8; O2SAT 98
[2022-11-19] MEDS: trazodone 50 mg Tablet PO (00:07)
[2022-11-19 06:00] VITALS: BP 127/71; PULSE 109; RESP 16; O2SAT 97
[2022-11-19] MEDS: lithium carbonate 300 mg Capsule PO ×2 (09:34→17:57)
[2022-11-19] MEDS: nicotine 4 mg lozenge MUCOUS MEM (09:34)
[2022-11-19] MEDS: thiamine 100 mg Tablet PO (09:34)
[2022-11-19] MEDS: spironolactone 25 mg Tablet 75 MG PO (09:34)
[2022-11-19] MEDS: benztropine 1 mg Tablet PO ×3 (09:34→20:41)
[2022-11-19] MEDS: pyridoxine 50 mg Tablet PO ×2 (09:35→17:57)
[2022-11-19] MEDS: cyanocobalamin 1,000 mcg/mL SDV 1000 MCG IM (09:35)
[2022-11-19 14:00] VITALS: BP 148/79; PULSE 120; RESP 16; TEMP 36.5; O2SAT 96
--- NOTE | 2022-11-19 15:16 | P.NPUPN_ITS ---
Subjective NPU Subjective: Patient is a 37-year-old white female with a history of psychosis including bizarre delusions and paranoia. Patient continues to show evidence of bizarre thinking. Patient was able to attend groups with limited input provided. She had stated that the groups had been helpful today. She had been engaged in appropriate self-care she had showered today. She had continued to voice her desire to return home to her children despite there being no clear evidence of her having children. She had reported a good visit with her 2 days ago. She continued to have periods of increased psychomotor slowing. She had reported adequate sleep at this time. She appeared less confused on the milieu but remained isolative. Mental Status Exam MSE Comments: This is an overweight versus obese white female in hospital scrubs with poor grooming and limited eye contact. There was some reduction in the intensity and frequency of her tremor today. Her gait showed steady shuffling of gait There was significant psychomotor slowing. She was cooperative with exam in moderate distress. Speech was was more spontaneous today but still somewhat slow and steady with normal volume. Mood described as okay. Affect remained subdued and mood incongruent. Thought process: Linear and more organized. Thought content: Patient denied suicidal or homicidal ideation. There was continued evidence of delusional thinking. She did appear at times to be responding to internal stimuli. Attention and concentration were limited and memory was unreliable but never formally tested. She was alert and oriented times person and place. Insight, judgment and impulse control are impaired. Vitals/I&O/Wt Last Vital Signs Temp 97.7 F 11/19/22 14:00 Pulse 120 H 11/19/22 14:00 Resp 16 11/19/22 14:00 BP 148/79 11/19/22 14:00 Pulse Ox 96 11/19/22 14:00 O2 Del Method Room Air 11/19/22 14:00 Data NPU 11/14/22 08:26 11/16/22 08:56 A&P Assessment and plan (1) Schizophrenia: (2) PTSD (post-traumatic stress disorder): Plan ?Patient is a 36-year-old female admitted with bizarre delusions currently endorsing limited compliance with her medication regimen that appears currently unable to manage her care safely and continues to require acute inpatient hospitalization 1.? ?Engage? patient in individual ,milieu, and group therapy ? 2. ? We will attempt to gather collateral information from previous providers and about how prevalent psychosis has been. 3. ? TO-15 minute checks on the unit. ? 4.? Recommend sober living treatment at the highest level of care to which the patient is willing to commit. 5. Continue spironolactone at 75mg daily. Patient given IM invega 234mg on 10/24/2022. Given Invega Sustenna 156 mg second loading dose 11/01/2022. Prn haldol for agitation. Continue Cogentin to 1 mg 3 times a day 6. She continues to struggle with EPS including parkinsonian symptoms. We will initiate B6 50mg bid daily to target drug-induced parkinsonism. Continue B6 supplementation. Reduce LITHIUM to 300mg bid. Involuntary Hold Information 96 Hour Hold: 96 Hour Involuntary Admission: No Attestations NPU Medical Necessity Statement*: Inpatient hospitalization is medically necessary and deemed to be the clinically appropriate intervention at this time. We will initiate medications as deemed medically necessary and adjust them accordingly. The patient's likely length of stay is 7-9 days. Coding Level of Care Code Acute Code for [facility] Fwd Diagnoses Schizophrenia F20.9 PTSD (post-traumatic stress disorder) F43.10
[2022-11-19 19:41] VITALS: BP 120/80; PULSE 100; RESP 18; TEMP 36.7; O2SAT 96
[2022-11-20] MEDS: trazodone 50 mg Tablet PO ×3 (00:02→22:49)
[2022-11-20 06:00] VITALS: BP 147/87; PULSE 116; RESP 20; TEMP 36.4; O2SAT 94
[2022-11-20] MEDS: lithium carbonate 300 mg Capsule PO (08:28)
[2022-11-20] MEDS: thiamine 100 mg Tablet PO (08:28)
[2022-11-20] MEDS: pyridoxine 50 mg Tablet PO ×2 (08:28→18:34)
[2022-11-20] MEDS: benztropine 1 mg Tablet PO ×3 (08:28→20:20)
[2022-11-20] MEDS: spironolactone 25 mg Tablet 75 MG PO (08:28)
[2022-11-20] MEDS: cyanocobalamin 1,000 mcg/mL SDV 1000 MCG IM (08:29)
--- NOTE | 2022-11-20 08:39 | PC.NURSE ---
Patient denies all. Patient was in dayroom, body scrunched and wobbly. When asked what she was doing, patient said she was doing a wall push up. Patient states that she feels fine and that her body feels fine. Patient is still tremulous. Patient is alert and oriented x3. Will continue to watch closely.
--- NOTE | 2022-11-20 12:36 | W.PM.NPUPNS ---
Subjective NPU Subjective: Patient is a 37-year-old white female with a history of psychosis including bizarre delusions and paranoia. The patient continues to spend most of the day in her room although she was able to attend groups. She reported no side effects from her medication. She had continued to describe feeling fine . Staff notes patient had not engaged in any bizarre behavior here. She has been able to would engage in more appropriate self-care. She had continued to report the need to go home to her and her children. She had reported that she was no longer worried about specific family members who were targeting her and did not endorse a voodoo war between her and her mother and father as previously stated on admission. Mental Status Exam MSE Comments: This is an overweight versus obese white female in hospital scrubs with poor grooming and limited eye contact. Her tremors were far less pronounced today. She continued to have shuffling gait but it appeared less prominent. There was significant psychomotor slowing. She was cooperative with exam in mild distress. Speech was was more spontaneous today but remained slow and steady with normal volume. She described her mood as all right. Affect remained subdued and mood incongruent. Thought process: Linear and more organized. Thought content: Patient denied suicidal or homicidal ideation. There was continued evidence of delusional thinking. She did not appear to be responding to internal stimuli. Attention and concentration were limited and memory was unreliable but never formally tested. She was alert and oriented times person and place. Insight, judgment and impulse control are impaired. Vitals/I&O/Wt Last Vital Signs Temp 97.5 F L 11/20/22 06:00 Pulse 116 H 11/20/22 06:00 Resp 20 H 11/20/22 06:00 BP 147/87 11/20/22 06:00 Pulse Ox 94 11/20/22 06:00 O2 Del Method Room Air 11/20/22 06:00 Data NPU 11/14/22 08:26 11/16/22 08:56 A&P Assessment and plan (1) Schizophrenia: (2) PTSD (post-traumatic stress disorder): Plan ?Patient is a 36-year-old female admitted with bizarre delusions currently endorsing limited compliance with her medication regimen that appears currently unable to manage her care safely and continues to require acute inpatient hospitalization 1.? ?Engage? patient in individual ,milieu, and group therapy ? 2. ? We will attempt to gather collateral information from previous providers and about how prevalent psychosis has been. 3. ? TO-15 minute checks on the unit. ? 4.? Recommend sober living treatment at the highest level of care to which the patient is willing to commit. 5. Continue spironolactone at 75mg daily. Patient given IM invega 234mg on 10/24/2022. Given Invega Sustenna 156 mg second loading dose 11/01/2022. Prn haldol for agitation. Continue Cogentin to 1 mg 3 times a day 6. She continues to struggle with EPS including parkinsonian symptoms. We will initiate B6 50mg bid daily to target drug-induced parkinsonism. Continue B6 supplementation. Reduce LITHIUM to 300mg AM, will begin lamotrigine 25mg bid. Involuntary Hold Information 96 Hour Hold: 96 Hour Involuntary Admission: No Attestations NPU Medical Necessity Statement*: Inpatient hospitalization is medically necessary and deemed to be the clinically appropriate intervention at this time. We will initiate medications as deemed medically necessary and adjust them accordingly. The patient's likely length of stay is 7-9 days. Coding Level of Care Code Acute Code for [facility] Fwd Diagnoses Schizophrenia F20.9 PTSD (post-traumatic stress disorder) F43.10
[2022-11-20 14:00] VITALS: BP 113/67; PULSE 95; RESP 16; TEMP 36.6; O2SAT 95
[2022-11-20] MEDS: lamoTRIgine 25 mg Tablet PO (18:34)
[2022-11-20 19:59] VITALS: BP 140/95; PULSE 113; RESP 18; TEMP 36.3; O2SAT 96
[2022-11-21 06:00] VITALS: BP 113/75; PULSE 89; RESP 16; O2SAT 97
[2022-11-21] MEDS: lithium carbonate 300 mg Capsule PO (06:16)
[2022-11-21] MEDS: cyanocobalamin 1,000 mcg/mL SDV 1000 MCG IM (08:32)
[2022-11-21] MEDS: benztropine 1 mg Tablet PO ×3 (08:32→20:45)
[2022-11-21] MEDS: thiamine 100 mg Tablet PO (08:32)
[2022-11-21] MEDS: lamoTRIgine 25 mg Tablet PO ×2 (08:32→17:59)
[2022-11-21] MEDS: spironolactone 25 mg Tablet 75 MG PO (08:32)
[2022-11-21] MEDS: pyridoxine 50 mg Tablet PO ×2 (08:32→17:59)
--- NOTE | 2022-11-21 12:44 | P.NPUPN_ITS ---
Subjective NPU Subjective: Patient is a 37-year-old white female with a history of psychosis including bizarre delusions and paranoia. The patient continued to isolate in her room. She stated that she was continuing to feel shaky. Staff notes the patient was able to attend groups but continued to have problems with her balance. She has been receiving treatment for B12 deficiency. She had reported 1 previous epis ode in March 2022 where she had required hospitalization in [place]. She had minimized any current problems here. She did not endorse any clear delusions today. She reported that her mood was good. She had completed some activities of daily living today without any issue. Mental Status Exam MSE Comments: This is an overweight versus obese white female in hospital scrubs with poor grooming and limited eye contact. Her tremors remained pronounced. She continued to have shuffling gait but it appeared less prominent. There was significant psychomotor slowing. She was cooperative with exam in mild distress. Speech was was more spontaneous today but remained slow and steady with normal volume with some evidence of halting speech at times. She described her mood as all right. Affect remained subdued and mood incongruent. Thought process: Linear and more organized. Thought content: Patient denied suicidal or homicidal ideation. There was continued evidence of delusional thinking. She did not appear to be responding to internal stimuli. Attention and concentration were limited and memory was poor on testing today.. She was alert and oriented times person and place and time. Insight, judgment and impulse control are impaired. Vitals/I&O/Wt Last Vital Signs Temp 97.4 F L 11/20/22 19:59 Pulse 89 11/21/22 06:00 Resp 16 11/21/22 06:00 BP 113/75 11/21/22 06:00 Pulse Ox 97 11/21/22 06:00 O2 Del Method Room Air 11/20/22 14:00 Weight last 48 hrs Weight 82.917 kg Data NPU 11/14/22 08:26 11/16/22 08:56 A&P Assessment and plan (1) Schizophrenia: (2) PTSD (post-traumatic stress disorder): Plan ?Patient is a 36-year-old female admitted with bizarre delusions currently endorsing limited compliance with her medication regimen that appears currently unable to manage her care safely and continues to require acute inpatient hospitalization 1.? ?Engage? patient in individual ,milieu, and group therapy ? 2. ? We will attempt to gather collateral information from previous providers and about how prevalent psychosis has been. 3. ? TO-15 minute checks on the unit. ? 4.? Recommend sober living treatment at the highest level of care to which the patient is willing to commit. 5. Continue spironolactone at 75mg daily. Patient given IM invega 234mg on 10/24/2022. Given Invega Sustenna 156 mg second loading dose 11/01/2022. Prn haldol for agitation. Continue Cogentin to 1 mg 3 times a day 6. She continues to struggle with EPS including parkinsonian symptoms. We will initiate B6 50mg bid daily to target drug-induced parkinsonism. Continue B6 supplementation. Reduce LITHIUM to 300mg AM, will begin lamotrigine 25mg bid. 7. Seeking records from single hospitalization in [place] where patient was hospitalized for 2 weeks. Evaluate for acute psychosis-may include MRI, LP, labs to evaluate for NMDA encephalitis which presents with acute symptoms of psychosis with a history of prolonged deficits in executive functioning impulsivity and sleep abnormalities will order lab panel. Including anti-NMDAR panel. Involuntary Hold Information 96 Hour Hold: 96 Hour Involuntary Admission: No Attestations NPU Medical Necessity Statement*: Inpatient hospitalization is medically necessary and deemed to be the clinically appropriate intervention at this time. We will initiate medications as deemed medically necessary and adjust them accordingly. The patient's likely length of stay is 7-9 days. Coding Level of Care Code Acute Code for g Fwd Diagnoses Schizophrenia F20.9 PTSD (post-traumatic stress disorder) F43.10
[2022-11-21 14:00] VITALS: BP 148/86; PULSE 101; RESP 15; TEMP 36.9; O2SAT 97
[2022-11-21 19:57] VITALS: BP 125/85; PULSE 95; RESP 16; TEMP 37.1; O2SAT 98
--- NOTE | 2022-11-21 20:25 | P.PN_ITS ---
Subjective Subjective: So far unimproved difficulties with coordination, tremors.? Otherwise per discussion with nursing staff mental status is improved, so far without additional delusions. She had an admission over holidays in [place], does not remember what admission was about, and it seems there is some trouble identifying which hospital she was in.? Requested us being made to a second hospital after initial request unsuccessful. Vitals/I&O/Wt Last Vital Signs Temp 98.7 F 11/21/22 19:57 Pulse 95 11/21/22 19:57 Resp 16 11/21/22 19:57 BP 125/85 11/21/22 19:57 Pulse Ox 98 11/21/22 19:57 O2 Del Method Room Air 11/21/22 14:00 11/21/22 11/21/22 11/21/22 06:59 14:59 22:59 Intake Total 0 / 0 0 / 0 Balance 0 / 0 0 / 0 Weight last 48 hrs Weight 82.917 kg Physical Exam Const: COMMON NORMALS: alert GENERAL APPEARANCE: cooperative ORIENTATION/CONSCIOUSNESS: Yes awake HENMT: COMMON NORMALS: oropharynx normal Neck/C-Spine: COMMON NORMALS: no JVD Resp: COMMON NORMALS: normal respiratory effort and clear to auscultation bilaterally AUSCULTATION: clear to auscultation bilaterally Cardio: COMMON NORMALS: no JVD, regular rhythm, S1 normal heart sound present, S2 normal heart sound present and No murmurs present (Cardio) RHYTHM: regular rhythm HEART SOUNDS: S1 normal heart sound present and S2 normal heart sound present GI: COMMON NORMALS: Normal to inspection, nondistended, normoactive bowel sounds present, Soft to palpation and non-tender PALPATION: Yes Soft to palpation Extremity: COMMON NORMALS: no joint enlargement and no pedal edema Neuro: COMMON NORMALS: moves all extremities SENSORIUM/ORIENTATION: Yes alert OTHER: Diffuse bilateral tremor, bradykinesia. Skin: COMMON NORMALS: no rashes or lesions noted GENERAL SKIN EXAM: no rashes or lesions noted Data 11/14/22 08:26 11/16/22 08:56 A&P Assessment and plan (1) Parkinsonism: Unclear cause of parkinsonism. Symptoms appear to be persistent. Continues with B12 supplementation. Noted addition of B6. Continue attempts to obtain records from hospitalization over the holidays in [place]. Agree with additional assessment with MRI brain and arrangements for neurology assessment consider trial of carbidopa/levodopa. Consider medications, although does not appear to be any obvious medications, lithium, although level noted 0.9, progressive supranuclear palsy, corticobasal degeneration, MSA, CJD, consideration of anti-NMDA assessment. Consider assessment for Tha disease, in addition to plans for MRI will require ceruloplasmin, consider ophthalmology assessment for sleep lamp evaluation during the week. Noted nonreactive RPR and HIV. Negative MARQUITA screen. (2) B12 deficiency: Due to neurologic symptoms with B12 deficiency on parenteral supplementation. Transition to oral if symptoms improving or additional causes identified. (3) Altered mental status: Mental status overall appears improving per discussion with RN. She is awake, alert, cooperative. Not a good historian. Plan Altered mental status -Hyponatremia is resolved -Possible confabulation related to Warnicke's encephalopathy? Although she denies any alcoholism, continue thiamine [place] level noted 0.9. Noted unremarkable UA. Head CT. Delusions: With improvement. Continue neuropsychiatric optimization. Psychiatry PN noted. Schizophrenia PTSD Attestations Medical Necessity Statement*: Continue admission for assessment management of parkinsonism, delusional disorder, B12 deficiency. and High MDM includes number and complexity of problems actively addressed during encounter as documented Diagnoses Parkinsonism G20 B12 deficiency E53.8 Altered mental status R41.82
[2022-11-22 06:00] VITALS: BP 142/97; PULSE 105; RESP 16; O2SAT 96
[2022-11-22] MEDS: blistex lip oint 7 gm Tube 1 APPLIC TOPICAL (06:29)
[2022-11-22] MEDS: lithium carbonate 300 mg Capsule PO (06:30)
[2022-11-22] MEDS: pyridoxine 50 mg Tablet PO ×2 (09:33→19:46)
[2022-11-22] MEDS: lamoTRIgine 25 mg Tablet PO ×2 (09:33→19:46)
[2022-11-22] MEDS: benztropine 1 mg Tablet PO ×3 (09:33→19:46)
[2022-11-22] MEDS: thiamine 100 mg Tablet PO (09:33)
[2022-11-22] MEDS: cyanocobalamin 1,000 mcg/mL SDV 1000 MCG IM (09:34)
[2022-11-22] MEDS: spironolactone 25 mg Tablet 75 MG PO (09:34)
[2022-11-22 14:00] VITALS: BP 133/95; PULSE 118; RESP 18; TEMP 36.8; O2SAT 97
--- NOTE | 2022-11-22 14:22 | P.NPUPN_ITS ---
Subjective NPU Subjective: Patient is a 37-year-old white female with a history of psychosis including bizarre delusions and paranoia. The patient had continued to spend some time in her room but was able to attend groups and contributed today. When seen initially on rounds, the patient had reported feeling shaky and reported that she would like to leave soon. She had stated that she had actually been hospitalized in the winter 2021 in [place] and was agreeable to giving permissions to gather records from the facility. She had not endorsed following up with a psychiatrist since that time. She had reported no prior history of psychosis prior to that event. The patient had continued to report some level of fatigue. She had reported that she felt that she was walking better. She had continued to appear somewhat slow at completing activities of daily living without any prompting. Mental Status Exam MSE Comments: This is an overweight versus obese white female in hospital scrubs with poor grooming and limited eye contact. Her tremors remained pronounced and worsened with intention and physical activity. She continued to show evidence of a fenestrating gait but her speech appeared to be faster. There was significant psychomotor slowing. She was cooperative with exam in mild distress. Speech was was more spontaneous today with less evidence of halting speech. She described her mood as okay. Affect remained subdued and mood incongruent. Thought process: Linear and more organized. Thought content: Patient denied suicidal or homicidal ideation. No overt delusions were noted today. She did not appear to be responding to internal stimuli. Attention and concentration were limited and memory was poor on testing today.. She was alert and oriented times person and place and time. Insight, judgment and impulse control are impaired. Vitals/I&O/Wt Last Vital Signs Temp 98.7 F 11/21/22 19:57 Pulse 105 H 11/22/22 06:00 Resp 16 11/22/22 06:00 BP 142/97 11/22/22 06:00 Pulse Ox 96 11/22/22 06:00 O2 Del Method Room Air 11/21/22 14:00 11/21/22 11/22/22 11/22/22 22:59 06:59 14:59 Intake Total 0 / 0 Balance 0 / 0 Weight last 48 hrs Weight 82.917 kg Data NPU 11/14/22 08:26 11/16/22 08:56 A&P Assessment and plan (1) Parkinsonism: Unclear cause of parkinsonism. Symptoms appear to be persistent. Continues with B12 supplementation. Noted addition of B6. Continue attempts to obtain records from hospitalization over the holidays in [place]. Agree with additional assessment with MRI brain and arrangements for neurology assessment consider trial of carbidopa/levodopa. Consider medications, although does not appear to be any obvious medications, lithium, although level noted 0.9, progressive supranuclear palsy, corticobasal degeneration, MSA, CJD, consideration of anti-NMDA assessment. Consider assessment for Tha disease, in addition to plans for MRI will require ceruloplasmin, consider ophthalmology assessment for sleep lamp evaluation during the week. Noted nonreactive RPR and HIV. Negative MARQUITA screen. (2) B12 deficiency: Due to neurologic symptoms with B12 deficiency on parenteral supplementation. Transition to oral if symptoms improving or additional causes identified. (3) Altered mental status: Mental status overall appears improving per discussion with RN. She is awake, alert, cooperative. Not a good historian. Plan 1.? ?Engage? patient in individual ,milieu, and group therapy ? 2. ? We will attempt to gather collateral information from previous providers and about how prevalent psychosis has been. 3. ? TO-15 minute checks on the unit. ? 4.? Recommend sober living treatment at the highest level of care to which the patient is willing to commit. 5. ? Continue? spironolactone at 75mg daily.? Patient given IM invega 234mg on 10/24/2022.? Given Invega Sustenna 156 mg second loading dose 11/01/2022.? Prn haldol for agitation.? Continue Cogentin to 1 mg 3 times a day 6.? She continues to struggle with EPS including parkinsonian symptoms.? We will initiate B6 50mg bid daily to target drug-induced parkinsonism.? Continue B6 supplementation.? D/C lithium and 8. will begin lamotrigine 25mg bid. 7.? Seeking records from single hospitalization in [place] where patient was hospitalized for 2 weeks.? Evaluate for acute psychosis-may include MRI, LP, labs to evaluate for NMDA encephalitis which presents with acute symptoms of psychosis with a history of prolonged deficits in executive functioning impulsivity and sleep abnormalities will order lab panel.? Including anti-NMDAR panel. 8. Psychosis appears to be improving but residual symptoms including fatigue and waxing and waning of sedation is prominent. --NMDA encephalitis?? Will get MRI. Involuntary Hold Information 96 Hour Hold: 96 Hour Involuntary Admission: No Attestations NPU Medical Necessity Statement*: Inpatient hospitalization is medically necessary and deemed to be the clinically appropriate intervention at this time. We will initiate medications as deemed medically necessary and adjust them accordingly. The patient's likely length of stay is 7-9 days. Coding Level of Care Code Acute Code for g Fwd Diagnoses Parkinsonism G20 B12 deficiency E53.8 Altered mental status R41.82
[2022-11-22 19:57] VITALS: BP 121/83; PULSE 94; RESP 16; TEMP 36.8; O2SAT 97
[2022-11-22] MEDS: trazodone 50 mg Tablet PO (22:42)
[2022-11-23] MEDS: trazodone 50 mg Tablet PO ×2 (00:41→20:58)
[2022-11-23 06:00] VITALS: BP 145/96; PULSE 129; RESP 18; O2SAT 98
[2022-11-23] MEDS: benztropine 1 mg Tablet PO ×3 (09:12→20:58)
[2022-11-23] MEDS: spironolactone 25 mg Tablet 75 MG PO (09:12)
[2022-11-23] MEDS: thiamine 100 mg Tablet PO (09:12)
[2022-11-23] MEDS: lamoTRIgine 25 mg Tablet PO ×2 (09:12→17:46)
[2022-11-23] MEDS: cyanocobalamin 1,000 mcg/mL SDV 1000 MCG IM (09:12)
[2022-11-23] MEDS: pyridoxine 50 mg Tablet PO ×2 (09:12→17:46)
[2022-11-23 12:09] LABS: Ceruloplasmin 23 mg/dL (18-53)
--- NOTE | 2022-11-23 13:02 | W.PM.NPUPNS ---
Subjective NPU Subjective: Patient is a 37-year-old white female with a history of psychosis including bizarre delusions and paranoia. Patient had been attending groups. She had requested an MRI. She had continued to struggle with gait and remained in her room for much of the day. She had reported having some difficulties falling asleep and stated that she had felt tired and fatigued. She had denied any hallucinations at this time. She had reported motivation to leave the hospital. She had reported normal appetite. She did not endorse having children to get home to today but stated that she needed to go back to her . Mental Status Exam MSE Comments: This is an overweight versus obese white female in hospital scrubs with poor grooming and limited eye contact. On examination the patient was seen as having a mild resting tremor that appeared to worsen with activities with intention tremor noted bilaterally.. She continued to show evidence of a fenestrating gait. She appeared to have her hand and arm in an almost on movable position for an extended period of time. There was significant psychomotor slowing. She was cooperative with exam in mild distress. Speech was was more spontaneous today with less evidence of halting speech but diminished in volume today.. She described her mood as okay. Affect remained subdued, blunted and mood incongruent. Thought process: Linear and more organized. Thought content: Patient denied suicidal or homicidal ideation. No overt delusions were noted today. She did not appear to be responding to internal stimuli. Attention and concentration were limited. She was alert and oriented times person and place and time. Insight, judgment and impulse control are impaired. Vitals/I&O/Wt Last Vital Signs Temp 98.2 F 11/22/22 19:57 Pulse 129 H 11/23/22 06:00 Resp 18 11/23/22 06:00 BP 145/96 11/23/22 06:00 Pulse Ox 98 11/23/22 06:00 O2 Del Method Room Air 11/22/22 14:00 Data NPU 11/14/22 08:26 11/16/22 08:56 A&P Assessment and plan (1) Parkinsonism: Unclear cause of parkinsonism. Symptoms appear to be persistent. Continues with B12 supplementation. Noted addition of B6. Continue attempts to obtain records from hospitalization over the holidays in [place]. Agree with additional assessment with MRI brain and arrangements for neurology assessment consider trial of carbidopa/levodopa. Consider medications, although does not appear to be any obvious medications, lithium, although level noted 0.9, progressive supranuclear palsy, corticobasal degeneration, MSA, CJD, consideration of anti-NMDA assessment. Consider assessment for Tha disease, in addition to plans for MRI will require ceruloplasmin, consider ophthalmology assessment for sleep lamp evaluation during the week. Noted nonreactive RPR and HIV. Negative MARQUITA screen. (2) B12 deficiency: Due to neurologic symptoms with B12 deficiency on parenteral supplementation. Transition to oral if symptoms improving or additional causes identified. (3) Altered mental status: Mental status overall appears improving per discussion with RN. She is awake, alert, cooperative. Not a good historian. Plan 1.? ?Engage? patient in individual ,milieu, and group therapy ? 2. ? We will attempt to gather collateral information from previous providers and about how prevalent psychosis has been. 3. ? TO-15 minute checks on the unit. ? 4.? Recommend sober living treatment at the highest level of care to which the patient is willing to commit. 5. ? Continue? spironolactone at 75mg daily.? Patient given IM invega 234mg on 10/24/2022.? Given Invega Sustenna 156 mg second loading dose 11/01/2022.? Prn haldol for agitation.? Continue Cogentin to 1 mg 3 times a day 6.? She continues to struggle with EPS including parkinsonian symptoms.? We will initiate B6 50mg bid daily to target drug-induced parkinsonism.? Continue B6 supplementation.? D/C lithium and 8. will begin lamotrigine 25mg bid. 7.? Seeking records from single hospitalization in [place] where patient was hospitalized for 2 weeks.? Evaluate for acute psychosis-may include MRI, LP, labs to evaluate for NMDA encephalitis which presents with acute symptoms of psychosis with a history of prolonged deficits in executive functioning impulsivity and sleep abnormalities will order lab panel.? Including anti-NMDAR panel. 8. Psychosis appears to be improving but residual symptoms including fatigue and waxing and waning of sedation is prominent. --NMDA encephalitis?? Will get MRI. Awaiting neurology consult. Involuntary Hold Information 96 Hour Hold: 96 Hour Involuntary Admission: No Attestations NPU Medical Necessity Statement*: Inpatient hospitalization is medically necessary and deemed to be the clinically appropriate intervention at this time. We will initiate medications as deemed medically necessary and adjust them accordingly. The patient's likely length of stay is 7-9 days. Coding Level of Care Code Acute Code for Chg Fwd Diagnoses Parkinsonism G20 B12 deficiency E53.8 Altered mental status R41.82
[2022-11-23 13:59] VITALS: BP 112/75; PULSE 97; RESP 16; TEMP 36.6; O2SAT 96
[2022-11-23 14:16] LABS: Vitamin B1(Thiamin) Plas/Ser 19 nmol/L (8-30)
[2022-11-23 20:12] VITALS: BP 144/99; PULSE 124; RESP 20; TEMP 36.8; O2SAT 96
[2022-11-24] MEDS: OLANZapine 5 mg ODT PO (03:48)
[2022-11-24 06:00] VITALS: BP 129/77; PULSE 92; RESP 18; TEMP 36.4; O2SAT 98
[2022-11-24] MEDS: lamoTRIgine 25 mg Tablet PO ×2 (09:20→17:22)
[2022-11-24] MEDS: spironolactone 25 mg Tablet 75 MG PO (09:20)
[2022-11-24] MEDS: pyridoxine 50 mg Tablet PO ×2 (09:21→17:22)
[2022-11-24] MEDS: thiamine 100 mg Tablet PO (09:21)
[2022-11-24] MEDS: cyanocobalamin 1,000 mcg/mL SDV 1000 MCG IM (09:22)
[2022-11-24] MEDS: benztropine 1 mg Tablet PO ×3 (09:22→21:01)
[2022-11-24 14:00] VITALS: BP 153/91; PULSE 138; RESP 20; TEMP 36.4; O2SAT 98
--- NOTE | 2022-11-24 16:53 | PM.MISC ---
Miscellaneous Note Purpose of Documentation: Chart reviewed, case discussed with Dr. Hays. Neurology consulted has been requested, awaiting recommendations with regards to further testing with MRI, LP as deemed appropriate per neuro. ceruloplasmin level returned normal. Continues to be tachycardic with HR range 95-128. Add metoprolol 12.5 mg daily. EKG with sinus tachycaria previously
--- NOTE | 2022-11-24 18:43 | P.CONIM_ITS ---
Providers/Reason For Consult Consulting Physician/Specialty*: Neurology Reason for Consult*: Altered mental status Requesting Physician: Dr. Hays Attending Physician: Fredis Hays MD History of Present Illness History of Present Illness Xiomara Zamora is a 37 year old female from [facility] who was transferred here from [facility] in [place] in a state of acute psychosis. She was laying naked on top of a grave and said that she was the reincarnation of her great-grandmother. She is able to relate that history to me today. She has been hospitalized here since 10/18/2022. She says but I have not confirmed that she had a previous hospitalization at [facility] [place] and that she was on Haldol while he was she was there and had a similar tremor to the one she is experiencing now. That is consistent with the history that she gave Dr. Hays on admission although she previously said she was hospitalized at [facility]. She has been confabulating and number of things during her stay here, such as having several children (she tells me to but has told other people 3) and she says that her mother committed suicide a year ago. She says that her mother committed suicide because I did not believe she would and I told her she would never do it but she shot herself in the head. She says that she has been very upset about her mother's suicide. She says that her father is schizophrenic and lives in a senior living and that Xiomara herself is his POA. She told me that she is schizophrenic. I have tried to reach her by phone. I tried both numbers and there was no answer. Since arrival here the patient has been alert and oriented. At the same time, she has been so bizarre as to pain across on the wall with feces and she has been incontinent of urine. She has been obsessed with alevism, Purgatory and reincarnation. She would like to go home. She says that if I could get her tremor under control she could go home. Initially she insisted on being treated with lithium. She was started on Invega 6 mg daily, later increased to 9 mg daily. She received 234 mg of Invega IM on 10/24/2022 and was started on Cogentin 1 mg twice daily. She received a second dose Invega Sustenna 156 mg 11/01/2022. She continued to be delusional and paranoid. It was a question that she might be hallucinating. She was wearing her pants on her head saying it gave her special masters. Ganister was increased and her level was therapeutic at 0.9 on 11/16. By 11/16 she had developed tremor. She was somewhat unsteady walk when walking. She was seen in consultation by Dr. Guy. She had significant B12 deficiency (163) and he started her on cyanocobalamin IM daily for 7 days. Her MMA was minimally elevated (334), folate was normal And vitamin B1 was normal. Ammonia was not elevated. Thyroid studies were normal including TSH, T4 and T3. MARQUITA screen was negative. RPR was nonreactive. Ceruloplasmin was normal. We have not been able to acquire her hospitalization records from March 2022 and she tells a different story each time. She told Dr. Hays she was hospitalized at [facility], told Dr. Serrano she was hospitalized in [place] and this morning she tells me that she was hospitalized at [facility]. She said they gave her Haldol. Review of Systems Narrative: She has not been febrile. Medications/Allergies Home Medications Medication Instructions Recorded Confirmed Last Taken Type No Known Home Medications 10/20/22 10/20/22 Unknown History Allergies Allergy/AdvReac Type Severity Reaction Status Date / Time No Known Allergies Allergy Verified 10/17/22 13:39 Current Medications Generic Name Dose Route Start Last Admin Trade Name Freq PRN Reason Stop Dose Admin Benztropine Mesylate 1 mg 11/17/22 12:15 11/24/22 14:46 Benztropine 1 Mg Tablet PO 1 mg TID SKYLAR Administration Camphor/Menthol/Phenol 1 applic 10/17/22 11:30 11/22/22 06:29 Blistex Lip Oint 7 Gm Tube TOPICAL 1 applic Q1H PRN Administration DRYNESS Cyanocobalamin 1,000 mcg 11/13/22 11:40 11/24/22 09:22 Cyanocobalamin 1,000 Mcg/Ml Sdv IM 1,000 mcg DAILY SKYLAR Administration Diphenhydramine HCl 50 mg 10/17/22 11:30 10/21/22 08:15 Diphenhydramine 50 Mg/Ml Sdv 1ml IM 50 mg Q4H PRN Administration Severe Aggression Haloperidol 5 mg 10/17/22 11:30 10/23/22 12:19 Haloperidol 5 Mg Tablet PO 5 mg Q4H PRN Administration AGITATION Haloperidol Lactate 5 mg 10/17/22 11:30 10/21/22 08:15 Haloperidol Inj 5 Mg/Ml Inj 1 Ml IM 5 mg Q4H PRN Administration Severe Aggression Hydroxyzine Pamoate 50 mg 10/17/22 11:30 10/25/22 12:33 Hydroxyzine 25 Mg Capsule PO 50 mg Q6H PRN Administration ANXIETY Lamotrigine 25 mg 11/20/22 18:00 11/24/22 17:22 Lamotrigine 25 Mg Tablet PO 25 mg BID SKYLAR Administration Lorazepam 2 mg 11/16/22 14:18 11/16/22 14:29 Lorazepam 2 Mg Tablet PO 2 mg Q4H PRN Administration ANXIETY Nicotine 1 patch 10/17/22 11:30 10/22/22 07:47 Nicotine 21 Mg Patch TRANSDERMA 1 patch DAILY PRN Administration NICOTINE WITHDRAWAL Nicotine Polacrilex 2 mg 10/17/22 11:30 10/29/22 11:46 Nicotine 2 Mg Gum BUCCAL 2 mg Q2H PRN Administration NICOTINE WITHDRAWAL Nicotine Polacrilex 4 mg 10/18/22 23:35 11/19/22 09:34 Nicotine 4 Mg Lozenge MUCOUS MEM 4 mg Q2H PRN Administration NICOTINE CRAVINGS Olanzapine 5 mg 10/17/22 11:30 11/24/22 03:48 Olanzapine 5 Mg Odt PO 5 mg Q4H PRN Administration Agitation/Psychosis Pyridoxine HCl 50 mg 11/18/22 18:00 11/24/22 17:22 Pyridoxine 50 Mg Tablet PO 50 mg BID SKYLAR Administration Spironolactone 75 mg 10/20/22 09:00 11/24/22 09:20 Spironolactone 25 Mg Tablet PO 75 mg DAILY SKYLAR Administration Thiamine Mononitrate 100 mg 11/13/22 11:40 11/24/22 09:21 Thiamine 100 Mg Tablet PO 100 mg DAILY SKYLAR Administration Trazodone HCl 50 mg 11/07/22 21:00 11/23/22 20:58 Trazodone 50 Mg Tablet PO 50 mg BEDTIME PRN Administration sleep PFSH Acute PFSH: Medical History No pertinent past medical history Surgical History History of appendectomy History of cholecystectomy Family History Other No pertinent family history Social History Smoking and tobacco status: current every day smoker Alcohol intake: never Substance/Drug Use: former Female Reproductive History: Date of last menstrual period: 10/17/22 Vitals/I&O/Wt Last Vital Signs Temp 97.6 F 11/24/22 14:00 Pulse 138 H 11/24/22 14:00 Resp 20 H 11/24/22 14:00 BP 153/91 11/24/22 14:00 Pulse Ox 98 11/24/22 14:00 O2 Del Method Room Air 11/24/22 06:00 Physical Exam Narrative: GENERAL: She was in bed sleeping but hopped up to the side of the bed. She had mild akathisia, rocking on the bed and walking about in the room MENTAL STATUS: Orientation was full to 10 of 10 questions of orientation. Speech was fluent without word hesitation. She told me that her mother committed suicide a year ago which she is apparently not factual. She was able to tell me that she needed to be placed in the hospital because she was laying naked on a grave and thought that she was reincarnation of her mother, her grandmother and her great-grandmother. She says that her is a resistance welder and she is a housewife. 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 She says she is schizophrenic and that her father is schizophrenic. She says she is his POA. I attempted to call her at both numbers and did not receive an answer. She scored 23 out of 30 on Imogene cognitive assessment with mild diffuse cognitive dysfunction. She had trouble concentrating. Her tremor was high amplitude and it was frustrating for her to draw lines on the trails test and ultimately she started connecting all of the dots together. Her copy of the cube was not far off. She rebekah a clock but did not place the hands correctly. She was able to recall 3 objects after distraction. She could perform serial sevens. She was cogent enough to look me in the eye and tell me that if I could get her tremor under control, she can go home. CRANIAL NERVES: Visual acuity was intact to reading small print. Visual burns were full to confrontation, direct and consensual. Extraocular movements were full without nystagmus. Both slow pursuit and saccadic eye movements were normal. PERRLA. Face was symmetric at rest and with grimace. Hearing was intact to soft spoken voice. Tongue and palate were midline at rest and with protrusion of the tongue and elevation of the palate. Shoulders were symmetric at rest and with shoulder shrug. MOTOR: She has a high amplitude parkinsonian tremor in both upper extremities and the head. She has a low amplitude fine tremor on [id number]. She has no focal weakness. No myoclonus. SENSATION: She perceived vibration distally in the four extremities. She could perceive pin in the toes. COORDINATION: High amplitude resting and postural tremor. Stance was mildly unstable due to tremor with the eyes open, as well as the eyes closed. Tandem gait was not quested. DEEP TENDON REFLEXES: Brisk throughout. Toes downgoing. GAIT: Her gait was unremarkable. She was able to ambulate independently. HEENT: Normocephalic without dysmorphic features. Conjunctivae were not injected and sclerae were nonicteric. NECK: Carotid upstroke was strong bilaterally without bruits. The thyroid was not enlarged and there were no palpable lymph nodes. CHEST: Clear to auscultation. CARDIOVASCULAR: The heart sounds were normal without murmur or gallop. Regular rate and rhythm. EXTREMITIES: No deformities Data 11/14/22 08:26 11/16/22 08:56 A&P Assessment and plan (1) Schizophrenia: I am not sure if this patient is diagnosed with bipolar disorder with psychosis or schizophrenia. Reportedly she had previous hospitalization and psychiatric care but we have not been able to obtain any of those records as the patient gives a different story about where she was hospitalized each time she encounters a new physician. She remains moderately psychotic with delusional statements continuing to develop such as the suicide of her mother which is apparently not factual. Her score on the cognitive assessment shows mild diffuse cognitive impairment not unexpected in a patient with psychosis. She actually did fairly well. She does not seem as encephalopathic as I would expect with an infectious or inflammatory encephalitis. Her CT scan of the head was unremarkable on 11/13 with no sign of edema. I do not think it is likely that her mildly low B12 has much of an impact on her mental status. She has significant parkinsonism from her Invega. Ganister may also be playing a role. I am trying to reach her as I would like to get further history from him. I will talk with Dr. Hays in the morning. Continue to attempt to get records from [facility]. (2) Parkinsonism: (3) B12 deficiency: Coding Level of Care Code Acute Code for g Fwd Diagnoses Schizophrenia F20.9 Parkinsonism G20 B12 deficiency E53.8
--- NOTE | 2022-11-24 20:23 | W.PM.NPUPNS ---
Subjective NPU Subjective: Patient is a 37-year-old white female with a history of psychosis including bizarre delusions and paranoia. Patient had been attending groups. Patient remained somewhat confused at times. She reported adequate sleep. She continued to report no longer hearing voices and no longer felt like those that had put her in the hospital were doomed to face her wrath. She continued to report feeling shaky but had no balance issues. She continued to be confused about her previous hospitalization and thinks she was on haldol there. Mental Status Exam MSE Comments: This is an overweight versus obese white female in hospital scrubs with poor grooming and limited eye contact. On examination the patient was seen as having a mild resting tremor that appeared to worsen with activities with intention tremor noted bilaterally. She showed evidence of akathisia. She continued to show evidence of a fenestrating gait. No posturing noted today. She was cooperative with exam in mild distress. Speech was was more spontaneous today with less evidence of halting speech but diminished in volume today.. She described her mood as better. Affect remained subdued, blunted and mood incongruent. Thought process: Linear and more organized. Thought content: Patient denied suicidal or homicidal ideation. No overt delusions were noted today. She did not appear to be responding to internal stimuli. Attention and concentration were limited. She was alert and oriented times person and place and time. Insight, judgment and impulse control are impaired. Vitals/I&O/Wt Last Vital Signs Temp 97.6 F 11/24/22 14:00 Pulse 138 H 11/24/22 14:00 Resp 20 H 11/24/22 14:00 BP 153/91 11/24/22 14:00 Pulse Ox 98 11/24/22 14:00 O2 Del Method Room Air 11/24/22 06:00 Data NPU 11/14/22 08:26 11/16/22 08:56 A&P Assessment and plan (1) B12 deficiency: Due to neurologic symptoms with B12 deficiency on parenteral supplementation. Transition to oral if symptoms improving or additional causes identified. (2) Altered mental status: Mental status overall appears improving per discussion with RN. She is awake, alert, cooperative. Not a good historian. Plan 1.? ?Engage? patient in individual ,milieu, and group therapy ? 2. ? We will attempt to gather collateral information from previous providers and about how prevalent psychosis has been. 3. ? TO-15 minute checks on the unit. ? 4.? Recommend sober living treatment at the highest level of care to which the patient is willing to commit. 5. ? Continue? spironolactone at 75mg daily.? Patient given IM invega 234mg on 10/24/2022.? Given Invega Sustenna 156 mg second loading dose 11/01/2022.? Prn haldol for agitation.? Continue Cogentin to 1 mg 3 times a day 6.? She continues to struggle with EPS including parkinsonian symptoms.? We will initiate B6 50mg bid daily to target drug-induced parkinsonism.? Continue B6 supplementation.? D/C lithium and 8. will begin lamotrigine 25mg bid. 7.? Appreciate neurology consult, will follow for additional recommendations. Involuntary Hold Information 96 Hour Hold: 96 Hour Involuntary Admission: No Attestations NPU Medical Necessity Statement*: Inpatient hospitalization is medically necessary and deemed to be the clinically appropriate intervention at this time. We will initiate medications as deemed medically necessary and adjust them accordingly. The patient's likely length of stay is 3-5days. Coding Level of Care Code Acute Code for Chg Fwd Diagnoses B12 deficiency E53.8 Altered mental status R41.82
[2022-11-24 20:35] VITALS: BP 132/79; PULSE 97; RESP 20; TEMP 37.1; O2SAT 97
[2022-11-24] MEDS: metoprolol tartrate 25 mg Tablet 12.5 MG PO (21:00)
[2022-11-24] MEDS: trazodone 50 mg Tablet PO (22:50)
[2022-11-25] MEDS: trazodone 50 mg Tablet PO ×3 (00:42→23:05)
[2022-11-25 06:00] VITALS: RESP 16
--- NOTE | 2022-11-25 06:38 | PC.NURSE ---
pt resting vs not collected per charge nurse resp 16
[2022-11-25] MEDS: pyridoxine 50 mg Tablet PO ×2 (09:26→17:19)
[2022-11-25] MEDS: spironolactone 25 mg Tablet 75 MG PO (09:26)
[2022-11-25] MEDS: thiamine 100 mg Tablet PO (09:26)
[2022-11-25] MEDS: lamoTRIgine 25 mg Tablet PO ×2 (09:26→17:19)
[2022-11-25] MEDS: benztropine 1 mg Tablet PO ×3 (09:27→20:12)
[2022-11-25] MEDS: metoprolol tartrate 25 mg Tablet 12.5 MG PO ×2 (09:27→20:12)
[2022-11-25] MEDS: cyanocobalamin 1,000 mcg/mL SDV 1000 MCG IM (09:46)
--- NOTE | 2022-11-25 12:12 | W.PM.NPUPNS ---
Subjective NPU Subjective: Patient presented today reporting that she is doing better hopeful for discharge sooner rather than later. We discussed having some conversation/communication with her that if that is about close she is the baseline. She reports that she has not seen him since Tuesday but talk to him daily. She denied any significant side effects and reports that she feels clarity of thought or at least more clear. We discussed working on a discharge plan. Mental Status Exam MSE Comments: This is an overweight versus obese white female in hospital scrubs with poor grooming and limited eye contact. On examination the patient was seen as having a mild resting tremor that appeared to worsen with activities with intention tremor noted bilaterally. She showed evidence of akathisia. She continued to show evidence of a fenestrating gait. She was cooperative with exam in mild distress. Speech was was more spontaneous today with less evidence of halting speech but diminished in volume today. She described her mood as better. Affect remained subdued, blunted and mood incongruent. Thought process: Linear and more organized. Thought content: Patient denied suicidal or homicidal ideation. No overt delusions were noted today. She did not appear to be responding to internal stimuli. Attention and concentration were limited. She was alert and oriented times person and place and time. Insight, judgment and impulse control are impaired. Vitals/I&O/Wt Last Vital Signs Temp 98.7 F 11/24/22 20:35 Pulse 97 11/24/22 20:35 Resp 16 11/25/22 06:00 BP 132/79 11/24/22 20:35 Pulse Ox 97 11/24/22 20:35 O2 Del Method Room Air 11/24/22 20:35 Data NPU 11/14/22 08:26 11/16/22 08:56 A&P Assessment and plan (1) Schizophrenia: (2) PTSD (post-traumatic stress disorder): Plan ?Patient is a 36-year-old female admitted with bizarre delusions currently endorsing limited compliance with her medication regimen that appears currently unable to manage her care safely and continues to require acute inpatient hospitalization 1.? ?Engage? patient in individual ,milieu, and group therapy ? 2. ? We will attempt to gather collateral information from previous providers and about how prevalent psychosis has been. 3. ? TO-15 minute checks on the unit. ? 4.? Recommend sober living treatment at the highest level of care to which the patient is willing to commit. 5. Continue spironolactone at 75mg daily. Patient given IM invega 234mg on 10/24/2022. Given Invega Sustenna 156 mg second loading dose 11/01/2022. Prn haldol for agitation. Continue Cogentin to 1 mg 3 times a day 6. She continues to struggle with EPS including parkinsonian symptoms. We will initiate B6 50mg bid daily to target drug-induced parkinsonism. Continue B6 supplementation. Reduce LITHIUM to 300mg AM, will started lamotrigine 25mg bid. 7. Seeking records from single hospitalization in [place] where patient was hospitalized for 2 weeks. Evaluate for acute psychosis-may include MRI, LP, labs to evaluate for NMDA encephalitis which presents with acute symptoms of psychosis with a history of prolonged deficits in executive functioning impulsivity and sleep abnormalities will order lab panel. Including anti-NMDAR panel. 8. Appreciate neurology consult. Will consult with to find out how close to baseline we are. May ultimately have to discharge with outpatient care and neurology and psychiatry as we continue to try to maximize her post psychosis functioning, give appropriate follow-up and make sure that there is not some outlier/uncommon diagnosis that is being missed given her odd presentation. Involuntary Hold Information 96 Hour Hold: 96 Hour Involuntary Admission: No Attestations NPU Medical Necessity Statement*: Inpatient hospitalization is medically necessary and deemed to be the clinically appropriate intervention at this time. We will initiate medications as deemed medically necessary and adjust them accordingly. The patient's likely length of stay is 3-5days. Coding Level of Care Code Acute Code for [facility] Diagnoses Schizophrenia F20.9 PTSD (post-traumatic stress disorder) F43.10
[2022-11-25 14:00] VITALS: BP 118/81; PULSE 95; RESP 16; TEMP 36.6; O2SAT 98
[2022-11-25 20:08] VITALS: BP 109/73; PULSE 94; RESP 17; TEMP 36.6; O2SAT 93
--- NOTE | 2022-11-25 23:09 | PC.NURSE ---
Pulled Pt a PRN Trazodone, When given the Pt dropped the medication on the floor. Pulled the Pt another trazodone.
[2022-11-26] MEDS: OLANZapine 5 mg ODT PO ×2 (01:17→23:38)
[2022-11-26 06:00] VITALS: BP 116/80; PULSE 90; RESP 17; TEMP 37; O2SAT 97
[2022-11-26] MEDS: lamoTRIgine 25 mg Tablet PO ×2 (08:38→17:02)
[2022-11-26] MEDS: thiamine 100 mg Tablet PO (08:38)
[2022-11-26] MEDS: cyanocobalamin 1,000 mcg/mL SDV 1000 MCG IM (08:38)
[2022-11-26] MEDS: benztropine 1 mg Tablet PO ×3 (08:38→20:33)
[2022-11-26] MEDS: pyridoxine 50 mg Tablet PO ×2 (08:38→17:02)
[2022-11-26] MEDS: spironolactone 25 mg Tablet 75 MG PO (08:38)
[2022-11-26] MEDS: metoprolol tartrate 25 mg Tablet 12.5 MG PO ×2 (08:40→20:33)
[2022-11-26 14:00] VITALS: BP 122/80; PULSE 95; RESP 18; TEMP 36.9; O2SAT 97
--- NOTE | 2022-11-26 15:02 | PM.MISC ---
Miscellaneous Note Purpose of Documentation: Chart reviewed. HR better controlled since adding metoprolol. defer further neuro work up per neurology recommendations. Will sign off at this time. Please call with any further questions or concerns
--- NOTE | 2022-11-26 19:08 | W.PM.NPUPNS ---
Subjective NPU Subjective: Patient presented today reporting that she is excited at the prospect that she might be able to go home soon. We talked about treatment team having a conversation with her about baseline. We also discussed aftercare possibilities and our belief that she needs to continue with both psychiatry and neurology and continue to explore any new thoughts about her fairly new mental health concerns. Mental Status Exam MSE Comments: This is an overweight versus obese white female in hospital scrubs with poor grooming and limited eye contact. On examination the patient was seen as having a mild resting tremor that appeared to worsen with activities with intention tremor noted bilaterally. She showed evidence of akathisia. She continued to show evidence of a fenestrating gait. She was cooperative with exam in mild distress. Speech was was more spontaneous today with less evidence of halting speech but diminished in volume today. She described her mood as better. Affect remained subdued, blunted and mood incongruent. Thought process: Linear and more organized. Thought content: Patient denied suicidal or homicidal ideation. No overt delusions were noted today. She did not appear to be responding to internal stimuli. Attention and concentration were limited. She was alert and oriented times person and place and time. Insight, judgment and impulse control are impaired. Vitals/I&O/Wt Last Vital Signs Temp 97.6 F 11/26/22 20:11 Pulse 86 11/27/22 06:00 Resp 16 11/27/22 06:00 BP 117/74 11/27/22 06:00 Pulse Ox 98 11/27/22 06:00 O2 Del Method Room Air 11/27/22 06:00 Data NPU 11/14/22 08:26 11/16/22 08:56 A&P Assessment and plan (1) Schizophrenia: (2) PTSD (post-traumatic stress disorder): Plan ?Patient is a 36-year-old female admitted with bizarre delusions currently endorsing limited compliance with her medication regimen that appears currently unable to manage her care safely and continues to require acute inpatient hospitalization 1.? ?Engage? patient in individual ,milieu, and group therapy ? 2. ? We will attempt to gather collateral information from previous providers and about how prevalent psychosis has been. 3. ? TO-15 minute checks on the unit. ? 4.? Recommend sober living treatment at the highest level of care to which the patient is willing to commit. 5. Continue spironolactone at 75mg daily. Patient given IM invega 234mg on 10/24/2022. Given Invega Sustenna 156 mg second loading dose 11/01/2022. Prn haldol for agitation. Continue Cogentin to 1 mg 3 times a day 6. She continues to struggle with EPS including parkinsonian symptoms. We will initiate B6 50mg bid daily to target drug-induced parkinsonism. Continue B6 supplementation. Reduce LITHIUM to 300mg AM, will started lamotrigine 25mg bid. 7. Seeking records from single hospitalization in [place] where patient was hospitalized for 2 weeks. Evaluate for acute psychosis-may include MRI, LP, labs to evaluate for NMDA encephalitis which presents with acute symptoms of psychosis with a history of prolonged deficits in executive functioning impulsivity and sleep abnormalities will order lab panel. Including anti-NMDAR panel. 8. Appreciate neurology consult. Will consult with to find out how close to baseline we are. May ultimately have to discharge with outpatient care and neurology and psychiatry as we continue to try to maximize her post psychosis functioning, give appropriate follow-up and make sure that there is not some outlier/uncommon diagnosis that is being missed given her odd presentation. Involuntary Hold Information 96 Hour Hold: 96 Hour Involuntary Admission: No Attestations NPU Medical Necessity Statement*: Inpatient hospitalization is medically necessary and deemed to be the clinically appropriate intervention at this time. We will initiate medications. Likely length of stay is 3-5days. Coding Level of Care Code Acute Code for [facility] Diagnoses Schizophrenia F20.9 PTSD (post-traumatic stress disorder) F43.10
[2022-11-26 20:11] VITALS: BP 140/90; PULSE 107; RESP 20; TEMP 36.4; O2SAT 96
[2022-11-26] MEDS: trazodone 50 mg Tablet PO ×2 (20:33→22:24)
[2022-11-27] MEDS: hyDROXYzine 25 mg Capsule 50 MG PO (04:20)
[2022-11-27 06:00] VITALS: BP 117/74; PULSE 86; RESP 16; O2SAT 98
--- NOTE | 2022-11-27 07:22 | W.PM.NPUPNS ---
Subjective NPU Subjective: Patient presented today reporting that she is feeling better and is optimistic about the prospect of discharge being eminent. We agreed that this underwriter solicitation director will be with her when he comes today after they have met to get a sense of where he thinks things are. We agreed we would look at discharge planning after that conversation. She continues to have an outward appearance but at times seems labored or troubles that she reports to be fine and ready for discharge. No other concerns endorsed with medication or anything else. Mental Status Exam MSE Comments: This is an overweight versus obese white female in hospital scrubs with poor grooming and limited eye contact. On examination the patient was seen as having a mild resting tremor that appeared to worsen with activities with intention tremor noted bilaterally. She showed evidence of akathisia. She continued to show evidence of a fenestrating gait. She was cooperative with exam in mild distress. Speech was was more spontaneous today with less evidence of halting speech but diminished in volume today. She described her mood as better. Affect remained subdued, blunted and mood incongruent. Thought process: Linear and more organized. Thought content: Patient denied suicidal or homicidal ideation. No overt delusions were noted today. She did not appear to be responding to internal stimuli. Attention and concentration were limited. She was alert and oriented times person and place and time. Insight, judgment and impulse control are impaired. Vitals/I&O/Wt Last Vital Signs Temp 97.6 F 11/26/22 20:11 Pulse 86 11/27/22 06:00 Resp 16 11/27/22 06:00 BP 117/74 11/27/22 06:00 Pulse Ox 98 11/27/22 06:00 O2 Del Method Room Air 11/27/22 06:00 Data NPU 11/14/22 08:26 11/16/22 08:56 A&P Assessment and plan (1) Schizophrenia: (2) PTSD (post-traumatic stress disorder): Plan ?Patient is a 36-year-old female admitted with bizarre delusions currently endorsing limited compliance with her medication regimen that appears currently unable to manage her care safely and continues to require acute inpatient hospitalization 1.? ?Engage? patient in individual ,milieu, and group therapy ? 2. ? We will attempt to gather collateral information from previous providers and about how prevalent psychosis has been. 3. ? TO-15 minute checks on the unit. ? 4.? Recommend sober living treatment at the highest level of care to which the patient is willing to commit. 5. Continue spironolactone at 75mg daily. Patient given IM invega 234mg on 10/24/2022. Given Invega Sustenna 156 mg second loading dose 11/01/2022. Prn haldol for agitation. Continue Cogentin to 1 mg 3 times a day 6. She continues to struggle with EPS including parkinsonian symptoms. We will initiate B6 50mg bid daily to target drug-induced parkinsonism. Continue B6 supplementation. Reduce LITHIUM to 300mg AM, will started lamotrigine 25mg bid. 7. Seeking records from single hospitalization in [place] where patient was hospitalized for 2 weeks. Evaluate for acute psychosis-may include MRI, LP, labs to evaluate for NMDA encephalitis which presents with acute symptoms of psychosis with a history of prolonged deficits in executive functioning impulsivity and sleep abnormalities will order lab panel. Including anti-NMDAR panel. 8. Appreciate neurology consult. Will consult with to find out how close to baseline we are. May ultimately have to discharge with outpatient care and neurology and psychiatry as we continue to try to maximize her post psychosis functioning, give appropriate follow-up and make sure that there is not some outlier/uncommon diagnosis that is being missed given her odd presentation. Involuntary Hold Information 96 Hour Hold: 96 Hour Involuntary Admission: No Attestations NPU Medical Necessity Statement*: Inpatient hospitalization is medically necessary and deemed to be the clinically appropriate intervention at this time. We will initiate medications. Likely length of stay is 2-4 days. Coding Level of Care Code Acute Code for [facility] Fwd Diagnoses Schizophrenia F20.9 PTSD (post-traumatic stress disorder) F43.10
[2022-11-27] MEDS: cyanocobalamin 1,000 mcg/mL SDV 1000 MCG IM (08:42)
[2022-11-27] MEDS: metoprolol tartrate 25 mg Tablet 12.5 MG PO ×2 (08:42→20:07)
[2022-11-27] MEDS: lamoTRIgine 25 mg Tablet PO ×2 (08:42→17:57)
[2022-11-27] MEDS: spironolactone 25 mg Tablet 75 MG PO (08:42)
[2022-11-27] MEDS: thiamine 100 mg Tablet PO (08:43)
[2022-11-27] MEDS: pyridoxine 50 mg Tablet PO ×2 (08:43→17:57)
[2022-11-27] MEDS: benztropine 1 mg Tablet PO ×3 (08:43→20:07)
[2022-11-27 14:00] VITALS: BP 113/75; PULSE 89; RESP 18; TEMP 36.9; O2SAT 98
[2022-11-27] MEDS: nicotine 4 mg lozenge MUCOUS MEM (16:16)
[2022-11-27] MEDS: trazodone 50 mg Tablet PO ×2 (20:07→22:07)
[2022-11-27 20:18] VITALS: BP 112/75; PULSE 109; RESP 16; TEMP 36.9; O2SAT 98
[2022-11-28] MEDS: hyDROXYzine 25 mg Capsule 50 MG PO (02:41)
--- NOTE | 2022-11-28 02:42 | PC.NURSE ---
pt up to desk requesting something else for slee[. pt was advised that sleep aides can not be given after 2am. pt then requested anxiety med. when asked what had her anxiety triggered, pt stated i don't know . hydroxyzine 50mg po given. pt noted pacing and very fidgety.
[2022-11-28 06:00] VITALS: BP 119/84; PULSE 76; RESP 18; TEMP 36.7; O2SAT 95
[2022-11-28] MEDS: pyridoxine 50 mg Tablet PO ×2 (08:17→17:53)
[2022-11-28] MEDS: lamoTRIgine 25 mg Tablet PO ×2 (08:17→17:53)
[2022-11-28] MEDS: benztropine 1 mg Tablet PO ×3 (08:17→19:34)
[2022-11-28] MEDS: spironolactone 25 mg Tablet 75 MG PO (08:17)
[2022-11-28] MEDS: metoprolol tartrate 25 mg Tablet 12.5 MG PO ×2 (08:18→19:33)
[2022-11-28] MEDS: thiamine 100 mg Tablet PO (08:18)
[2022-11-28] MEDS: cyanocobalamin 1,000 mcg/mL SDV 1000 MCG IM (08:18)
--- NOTE | 2022-11-28 09:16 | PC.NURSE ---
During morning assessment, patient denied feelings of anxiety and depression. Patient denies thoughts of suicide and homicide, as well as hallucinations. Patient is calm and cooperative. Patient took her medications with no issue.
[2022-11-28 14:00] VITALS: BP 100/67; PULSE 95; RESP 20; TEMP 37.1; O2SAT 96
--- NOTE | 2022-11-28 16:54 | P.NPUPN_ITS ---
Subjective NPU Subjective: Patient presented today continuing to show excitement about the prospect of discharge being imminent. We discussed working with the treatment team tomorrow to make sure appropriate outpatient services are in place including neurology follow-up. Otherwise she denied any changes and we discussed the plan for discharge at the beginning of the week. Mental Status Exam MSE Comments: This is an overweight versus obese white female in hospital scrubs with poor grooming and limited eye contact. On examination the patient was seen as having a mild resting tremor that appeared to worsen with activities with intention tremor noted bilaterally. She showed evidence of akathisia. She continued to show evidence of a fenestrating gait. She was cooperative with exam in mild distress. Speech was was more spontaneous today with less evidence of halting speech but diminished in volume today. She described her mood as better. Affect remained subdued, blunted and mood incongruent. Thought process: Linear and more organized. Thought content: Patient denied suicidal or homicidal ideation. No overt delusions were noted today. She did not appear to be responding to internal stimuli. Attention and concentration were limited. She was alert and oriented times person and place and time. Insight, judgment and impulse control are impaired. Vitals/I&O/Wt Last Vital Signs Temp 97.8 F 11/28/22 20:04 Pulse 77 11/29/22 06:00 Resp 16 11/29/22 06:00 BP 107/66 11/29/22 06:00 Pulse Ox 98 11/29/22 06:00 O2 Del Method Room Air 11/28/22 14:00 11/28/22 11/28/22 11/29/22 14:59 22:59 06:59 Intake Total 0 / 0 0 / 0 Balance 0 / 0 0 / 0 Weight last 48 hrs Weight 85.366 kg Data NPU 11/14/22 08:26 11/16/22 08:56 A&P Assessment and plan (1) Schizophrenia: (2) PTSD (post-traumatic stress disorder): Plan ?Patient is a 36-year-old female admitted with bizarre delusions currently endorsing limited compliance with her medication regimen that appears currently unable to manage her care safely and continues to require acute inpatient hospitalization 1.? ?Engage? patient in individual ,milieu, and group therapy ? 2. ? We will attempt to gather collateral information from previous providers and about how prevalent psychosis has been. 3. ? TO-15 minute checks on the unit. ? 4.? Recommend sober living treatment at the highest level of care to which the patient is willing to commit. 5. Continue spironolactone at 75mg daily. Patient given IM invega 234mg on 10/24/2022. Given Invega Sustenna 156 mg second loading dose 11/01/2022. Prn haldol for agitation. Continue Cogentin to 1 mg 3 times a day 6. She continues to struggle with EPS including parkinsonian symptoms. We will initiate B6 50mg bid daily to target drug-induced parkinsonism. Continue B6 supplementation. Reduce LITHIUM to 300mg AM, will started lamotrigine 25mg bid. 7. Seeking records from single hospitalization in [place] where patient was hospitalized for 2 weeks. Evaluate for acute psychosis-may include MRI, LP, labs to evaluate for NMDA encephalitis which presents with acute symptoms of psychosis with a history of prolonged deficits in executive functioning impulsivity and sleep abnormalities will order lab panel. Including anti-NMDAR panel. 8. Appreciate neurology consult. Will consult with to find out how close to baseline we are. May ultimately have to discharge with outpatient care and neurology and psychiatry as we continue to try to maximize her post psychosis functioning, give appropriate follow-up and make sure that there is not some outlier/uncommon diagnosis that is being missed given her odd presentation. Involuntary Hold Information 96 Hour Hold: 96 Hour Involuntary Admission: No Attestations NPU Medical Necessity Statement*: Inpatient hospitalization is medically necessary and deemed to be the clinically appropriate intervention at this time. We will initiate medications. Likely length of stay is 1-3 days. Coding Level of Care Code Acute Code for [facility] Fwd Diagnoses Schizophrenia F20.9 PTSD (post-traumatic stress disorder) F43.10
[2022-11-28] MEDS: nicotine 4 mg lozenge MUCOUS MEM (19:33)
[2022-11-28] MEDS: trazodone 50 mg Tablet PO ×2 (19:34→21:51)
[2022-11-28 20:04] VITALS: BP 117/87; PULSE 123; RESP 18; TEMP 36.6; O2SAT 98
[2022-11-29] MEDS: hyDROXYzine 25 mg Capsule 50 MG PO ×2 (01:23→20:03)
[2022-11-29] MEDS: trazodone 50 mg Tablet PO ×3 (01:24→21:58)
--- NOTE | 2022-11-29 01:24 | PC.NURSE ---
PT NOTED TO BE PACING FROM ROOM TO DAYROOM, CHECKING THE CLOCK EACH TIME SHE PASSED THE NURSES DESK. A 2ND TRAZODONE 50MG PO AND VISTARIL 50MG PO GIVEN FOR SLEEP AND ANXIETY.
[2022-11-29 06:00] VITALS: BP 107/66; PULSE 77; RESP 16; O2SAT 98
--- NOTE | 2022-11-29 06:44 | PC.NURSE ---
pt up pacing several times this night, and rock in a push/pull motion when up at desk.
--- NOTE | 2022-11-29 06:47 | PC.NURSE ---
pt up pacing this night, doing push/pull motions when at desk.
[2022-11-29] MEDS: pyridoxine 50 mg Tablet PO ×2 (08:12→18:03)
[2022-11-29] MEDS: lamoTRIgine 25 mg Tablet PO ×2 (08:12→18:03)
[2022-11-29] MEDS: benztropine 1 mg Tablet PO ×3 (08:12→20:03)
[2022-11-29] MEDS: metoprolol tartrate 25 mg Tablet 12.5 MG PO ×2 (08:12→20:03)
[2022-11-29] MEDS: spironolactone 25 mg Tablet 75 MG PO (08:12)
[2022-11-29] MEDS: thiamine 100 mg Tablet PO (08:13)
[2022-11-29] MEDS: cyanocobalamin 1,000 mcg/mL SDV 1000 MCG IM (08:13)
[2022-11-29] MEDS: blistex lip oint 7 gm Tube 1 APPLIC TOPICAL (12:15)
[2022-11-29 13:52] VITALS: BP 98/64; PULSE 91; RESP 17; TEMP 36.8; O2SAT 96
--- NOTE | 2022-11-29 17:24 | W.PM.NPUPNS ---
Subjective NPU Subjective: Patient presented today reporting that she is doing okay. She continues to be focused on discharge and rightfully so as she is been here for some time. We discussed her working with the social work team for appropriate discharge planning and follow-ups. We discussed the likelihood of discharge in the next 48 hours which made her very happy. We discussed the importance of continuing her medication as we can to try to get her to the highest level of functioning and her recovery. Mental Status Exam MSE Comments: This is an overweight versus obese white female in hospital scrubs with poor grooming and limited eye contact. On examination the patient was seen as having a mild resting tremor that appeared to worsen with activities with intention tremor noted bilaterally. She showed evidence of akathisia. She continued to show evidence of a fenestrating gait. She was cooperative with exam in mild distress. Speech was was more spontaneous today with less evidence of halting speech but diminished in volume today. She described her mood as better. Affect remained subdued, blunted and mood incongruent. Thought process: Linear and more organized. Thought content: Patient denied suicidal or homicidal ideation. No overt delusions were noted today. She did not appear to be responding to internal stimuli. Attention and concentration were limited. She was alert and oriented times person and place and time. Insight, judgment and impulse control are impaired. Vitals/I&O/Wt Last Vital Signs Temp 97.9 F 11/29/22 19:56 Pulse 111 H 11/29/22 19:56 Resp 18 11/29/22 19:56 BP 121/85 11/29/22 19:56 Pulse Ox 99 11/29/22 19:56 O2 Del Method Room Air 11/28/22 14:00 11/29/22 11/30/22 11/30/22 22:59 06:59 14:59 Intake Total 0 / 0 Balance 0 / 0 Data NPU 11/14/22 08:26 11/16/22 08:56 A&P Assessment and plan (1) Schizophrenia: (2) PTSD (post-traumatic stress disorder): Plan ?Patient is a 36-year-old female admitted with bizarre delusions currently endorsing limited compliance with her medication regimen that appears currently unable to manage her care safely and continues to require acute inpatient hospitalization 1.? ?Engage? patient in individual ,milieu, and group therapy ? 2. ? We will attempt to gather collateral information from previous providers and about how prevalent psychosis has been. 3. ? TO-15 minute checks on the unit. ? 4.? Recommend sober living treatment at the highest level of care to which the patient is willing to commit. 5. Continue spironolactone at 75mg daily. Patient given IM invega 234mg on 10/24/2022. Given Invega Sustenna 156 mg second loading dose 11/01/2022. Prn haldol for agitation. Continue Cogentin to 1 mg 3 times a day 6. She continues to struggle with EPS including parkinsonian symptoms. We will initiate B6 50mg bid daily to target drug-induced parkinsonism. Continue B6 supplementation. Reduce LITHIUM to 300mg AM, will started lamotrigine 25mg bid. 7. Seeking records from single hospitalization in [place] where patient was hospitalized for 2 weeks. Evaluate for acute psychosis-may include MRI, LP, labs to evaluate for NMDA encephalitis which presents with acute symptoms of psychosis with a history of prolonged deficits in executive functioning impulsivity and sleep abnormalities will order lab panel. Including anti-NMDAR panel. 8. Appreciate neurology consult. Will consult with to find out how close to baseline we are. May ultimately have to discharge with outpatient care and neurology and psychiatry as we continue to try to maximize her post psychosis functioning, give appropriate follow-up and make sure that there is not some outlier/uncommon diagnosis that is being missed given her odd presentation. Involuntary Hold Information 96 Hour Hold: 96 Hour Involuntary Admission: No Attestations NPU Medical Necessity Statement*: Inpatient hospitalization is medically necessary and deemed to be the clinically appropriate intervention at this time. We will initiate medications. Likely length of stay is 1-3 days. Coding Level of Care Code Acute Code for [facility] Fwd Diagnoses Schizophrenia F20.9 PTSD (post-traumatic stress disorder) F43.10
[2022-11-29] MEDS: nicotine 4 mg lozenge MUCOUS MEM (18:22)
[2022-11-29 19:56] VITALS: BP 121/85; PULSE 111; RESP 18; TEMP 36.6; O2SAT 99
[2022-11-30] MEDS: hyDROXYzine 25 mg Capsule 50 MG PO (02:02)
[2022-11-30] MEDS: OLANZapine 5 mg ODT PO (02:02)
--- NOTE | 2022-11-30 02:07 | PC.NURSE ---
pt came to nurses desk, can i have my pill? pt noted to be holding onto the counter, rocking forward and backward in a push/pull motion. vistari 50mg po and zyprexa 5mg sl given.
[2022-11-30 06:00] VITALS: BP 117/84; PULSE 75; RESP 16; O2SAT 98
--- NOTE | 2022-11-30 06:39 | PC.NURSE ---
pt up most of this night, pacing between room and dayroom. when pt comes to nurses desk, she grabs onto the counter and rocks back and forth in a push/pull motion. endorses anxiety, but is unable to voice why or what is making her anxious.
[2022-11-30] MEDS: lamoTRIgine 25 mg Tablet PO (09:52)
[2022-11-30] MEDS: pyridoxine 50 mg Tablet PO (09:52)
[2022-11-30] MEDS: spironolactone 25 mg Tablet 75 MG PO (09:52)
[2022-11-30] MEDS: metoprolol tartrate 25 mg Tablet 12.5 MG PO (09:53)
[2022-11-30] MEDS: thiamine 100 mg Tablet PO (09:53)
[2022-11-30] MEDS: cyanocobalamin 1,000 mcg/mL SDV 1000 MCG IM (09:53)
[2022-11-30] MEDS: benztropine 1 mg Tablet PO ×2 (09:53→14:47)
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
[2022-11-30 13:21] VITALS: BP 117/84; PULSE 75; RESP 16; TEMP 36.6; O2SAT 98
[2022-11-30 13:57] VITALS: BP 108/71; PULSE 83; RESP 16; TEMP 36.6; O2SAT 97
[2022-11-30] MEDS: paliperidone palmitate 156 mg Syringe IM (13:57)
--- NOTE | 2022-11-30 15:37 | PC.NURSE ---
discharge med Vitamin b-12 1,000 mcg to be given daily IM, next dose due 12/07/22, one month supply no refill, ordered from Dr. Mas. Med called into [facility] pharmacy in [facility] [phone], spoke to Lilly.
== END 2022-11-30 15:28 | disposition home or self-care (01) | DRG 885 ==
PROVIDERS: Family Medicine; Admitting Provider Psychiatry & Neurology Psychiatry; Visit Provider Psychiatry & Neurology Psychiatry
DX: F20.0 Paranoid schizophrenia (principal); E87.1 Hypo-osmolality and hyponatremia; G21.19 Other drug induced secondary parkinsonism; I10 Essential (primary) hypertension; F43.10 Post-traumatic stress disorder, unspecified; E53.8 Deficiency of other specified B group vitamins; R41.82 Altered mental status, unspecified; T43.595A Adverse effect of other antipsychotics and neuroleptics, initial encounter; R00.0 Tachycardia, unspecified; Z81.8 Family history of other mental and behavioral disorders
CPT/HCPCS: 36415; 36416; 70450; 80048; 80051; 80053; 80178; 81001; 82140; 82248; 82390; 82607; 82746; 82962; 83036; 83090; 83735; 83921; 84145; 84425; 84439; 84443; 84481; 84484; 84703; 85025; 85651; 86038; 86140; 86592; 87491; 87591; 87661; 87806; 93005; 96372; 97150; 97161; 97165; 97166; 99238; J1200; J1630; J2060; J3420